=== PATIENT | male | born 1960 | race Caucasian/White ===

== ENCOUNTER 2020-12-16 22:25 | Inpatient (IN) | payer OTHER, SELFPAY ==
--- NOTE | 2020-12-16 22:31 | ECG_ITS ---
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
--- NOTE | 2020-12-16 22:31 | XRR_ITS ---
PROCEDURE INFORMATION: Exam: XR Chest Exam date and time: 12/16/2020 10:31 PM Age: 60 years old Clinical indication: Shortness of breath; Additional info: SOB, covid + TECHNIQUE: Imaging protocol: XR of the chest. Views: 1 view. COMPARISON: No relevant prior studies available. FINDINGS: Lungs: There is some patchy infiltrate at both lung bases more on the left than on the right. Pleural spaces: Unremarkable. No pleural effusion. No pneumothorax. Heart/Mediastinum: Heart is within normal limits of size. Bones/joints: Unremarkable. XR/XR chest 1V portable [id number] IMPRESSION: Mild basilar pulmonary infiltrates. Radiation Dose CTDIVOL = (mGy): DLP = (mGy-cm)
[2020-12-16 22:34] VITALS: BP 126/71; PULSE 88; RESP 28; TEMP 37.3; O2SAT 92; BMI 31.1
--- NOTE | 2020-12-16 22:39 | ED_ITS ---
HPI - SOB/Dyspnea General: Chief Complaint: COVID symptoms Stated Complaint: COVID +/ SOB Time Seen by Provider: 12/16/20 22:26 Source: patient and EMS Mode of arrival: EMS Limitations: no limitations History of Present Illness: HPI Narrative: 60-year-old male who states that he has been having cough fever over the last 6 days he tested positive for Covid [address] [facility]. He received a monoclonal antibody infusion this morning from [facility]. He states that throughout the days he has had increasing shortness of breath. Patient not been requiring oxygen when EMS arrived he is hypoxic states that the placed him on 15 L nonrebreather. He denies any vomiting he denies any chest pain. Associated symptoms: Reports fever(s); Deny abdominal pain, chest pain, nausea or vomiting Review of Systems Const: Reports: fever(s) and body aches Eyes: Denies: blurry vision or eye discomfort ENMT: Denies: throat pain or dental pain Card: Denies: chest pain Resp: Reports: dyspnea and productive cough GI: Denies: abdominal pain, nausea, vomiting or diarrhea : Denies: dysuria Musc: Denies: neck pain or back pain Skin/Breast: Denies: rash Neuro: Denies: headache(s) Psych: Denies: depression Miguel/Lymph: Denies: easy bruising All/Imm: Denies: urticaria Physical Exam Const: COMMON NORMALS: patient oriented x3 GENERAL APPEARANCE: in distress and ill appearing HENMT: COMMON NORMALS: normocephalic and atraumatic HEAD & SCALP: normocephalic and atraumatic Eye: COMMON NORMALS: Equal, round and reactive pupils present and EOMs intact bilaterally PUPIL: Yes Equal, round and reactive pupils present Neck/C-Spine: COMMON NORMALS: full ROM and supple Chest: COMMONS NORMALS: normal inspection of the chest and normal palpation of entire chest wall Resp: COMMON NORMALS: No retractions and No use of accessory muscles EFFORT & INSPECTION: Yes tachypneic AUSCULTATION: rales Cardio: COMMON NORMALS: regular rate, regular rhythm and No murmurs present (Cardio) RATE: regular rate RHYTHM: regular rhythm GI: COMMON NORMALS: Normal to inspection, nondistended, normoactive bowel sounds present, Soft to palpation, non-tender and no masses PALPATION: Yes Soft to palpation Extremity: COMMON NORMALS: normal to inspection and full ROM Neuro: COMMON NORMALS: patient oriented x3, moves all extremities and no focal motor deficits Psych: COMMON NORMALS: mental status grossly normal, Normal thought process present and cooperative THOUGHT PROCESS: Normal thought process present Skin: COMMON NORMALS: no rashes or lesions noted and no wounds GENERAL SKIN EXAM: no rashes or lesions noted Course Vital Signs: Vital signs: Vital Signs Temperature 99.1 F 12/16/20 22:34 Pulse Rate 75 12/17/20 01:16 Respiratory Rate 17 12/17/20 01:16 Blood Pressure 126/71 12/17/20 01:16 Pulse Oximetry 97 12/17/20 01:16 MDM - SOB/Dyspnea MDM Narrative: Medical decision making narrative: Patient presents here with Covid pneumonia requiring high flow oxygen. He is tolerating high flow oxygen well. CT shows no signs of acute embolism. I spoke to hospitalist will admit at this time. Lab Data: Labs: Lab Results 12/16/20 12/16/20 12/16/20 11:15 23:13 23:13 WBC 7.2 10^3/uL 10^3/ uL (4.0-10.0) RBC 4.61 10^6/uL 10^6 /uL (4.1-5.3) Hgb 13.9 g/dL g/dL (11.7-16.6) Hct 40.6 % L % (42.0-52.0) MCV 88.1 fl fl (80-94) MCH 30.2 pg pg (28.0-34.0) MCHC 34.2 g/dL g/dL (30.0-36.0) RDW 12.1 % % (12.1-15.1) Plt Count 201 10^3/cmm 10^3 /cmm (130-400) MPV 10.4 fL fL (7.4-10.4) Neut % (Auto) 78.0 % % Lymph % (Auto) 11.7 % % [place] % (Auto) 9.6 % % Eos % (Auto) 0.0 % % Baso % (Auto) 0.3 % % Neut # (Auto) 5.63 10^3/uL 10^3 /uL (1.8-7.7) Lymph # (Auto) 0.8 10^3/uL 10^3/ uL (0.8-4.8) [place] # (Auto) 0.7 10^3/uL 10^3/ uL (0.2-0.9) Eos # (Auto) 0.0 10^3/uL 10^3/ uL (0.0-0.8) Baso # (Auto) 0.0 10^3/uL 10^3/ uL (0.0-0.1) Nucleated RBC % (a uto) 0 % % Nucleated RBCs # 0.0 /100WBC /100W BC D-Dimer 0.64 ug/mIFEU H u g/mIFEU (0-0.59) Specimen Type Arterial Sample Site Radial, left ABG pH 7.49 H (7.35-7.45) ABG pCO2 32.1 mmHg L mmHg (35-45) ABG pO2 65.3 mmHg L mmHg (80.0-100.0) ABG HCO3 24.3 mmol/L mmol/ L (22-26) ABG Base Excess 1.6 mmol/L mmol/L (-2.0-2.0) Scott Test Pos Hematocrit 44.7 % % (42-52) O2 Delivery Device Hag O2 Liters/Min 50.0 % % FiO2 83.0 % % Scrum Master ID Rieri Sodium Potassium Chloride Carbon Dioxide Anion Gap BUN Creatinine GFR Calculation Glucose Calculated Osmolal ity Lactic Acid Calcium Total Bilirubin AST ALT Alkaline Phosphata se C-Reactive Protein NT-Pro-B Natriuret Pep Total Protein Albumin Globulin SARS-CoV-2 Ag (Rap id) 12/16/20 12/16/20 12/17/20 23:13 23:13 01:19 WBC RBC Hgb Hct MCV MCH MCHC RDW Plt Count MPV Neut % (Auto) Lymph % (Auto) [place] % (Auto) Eos % (Auto) Baso % (Auto) Neut # (Auto) Lymph # (Auto) [place] # (Auto) Eos # (Auto) Baso # (Auto) Nucleated RBC % (a uto) Nucleated RBCs # D-Dimer Specimen Type Sample Site ABG pH ABG pCO2 ABG pO2 ABG HCO3 ABG Base Excess Scott Test Hematocrit O2 Delivery Device O2 Liters/Min FiO2 Scrum Master ID Sodium 130 mmol/L L mmol /L (136-145) Potassium 4.4 mmol/L mmol/L (3.5-5.1) Chloride 93 mmol/L L mmol/ L (98-107) Carbon Dioxide 22 mmol/L mmol/L (22-29) Anion Gap 19.4 H (5-19) BUN 21 mg/dL mg/dL (8-23) Creatinine 0.9 mg/dL mg/dL (0.7-1.2) GFR Calculation 85.5 mL/min L mL/ min (90-130) Glucose 173 mg/dL H mg/dL (65-115) Calculated Osmolal ity 277 mOsm/kg L mOs m/kg (285-295) Lactic Acid 1.0 mmol/L mmol/L (0.5-2.2) Calcium 8.1 mg/dL L mg/dL (8.5-10.5) Total Bilirubin 0.8 mg/dL mg/dL (0.15-1.2) AST 46 U/L H U/L (0-40) ALT 49 U/L H U/L (0-41) Alkaline Phosphata se 46 IU/L IU/L (40-130) C-Reactive Protein 71.4 mg/L H mg/L (0.0-4.9) NT-Pro-B Natriuret Pep 19 pg/mL pg/mL (0-125) Total Protein 6.5 g/dL L g/dL (6.6-8.7) Albumin 3.6 g/dL g/dL (3.5-5.2) Globulin 2.9 g/dL g/dL (1.3-4.6) SARS-CoV-2 Ag (Rap id) Positive H (Negative) Imaging Data^: CXR: Attestation: I personally reviewed and interpreted this imaging study as follows: Radiologist's impression: [address] [place] [address] CT Scan Report Signed Patient: Jeff Chahal Unit #: [id number] : 1960 Age/Sex: 60 / M ADM Date: 12/16/20 Loc: ER Room/Bed: Attending Dr: Ordering Provider/Ordering MD: Jarad Hendrix MD Date of Service: 12/16/20 Procedure(s): CT angio chest PE protcl [id number] Accession Number(s): [id number] Report Number: [id number] PROCEDURE INFORMATION: Exam: CTA Chest With Contrast Exam date and time: 12/16/2020 11:50 PM Age: 60 years old Clinical indication: Cough and fever and shortness of breath; Additional info: SOB TECHNIQUE: Imaging protocol: Computed tomographic angiography of the chest with contrast. 3D rendering (Not supervised by radiologist): MIP and/or 3D reconstructed images were created by the technologist. Radiation optimization: All CT scans at this facility use at least one of these dose optimization techniques: automated exposure control; mA and/or kV adjustment per patient size (includes targeted exams where dose is matched to clinical indication); or iterative reconstruction. Contrast material: OMNI 350; Contrast volume: 65 ml; Contrast route: INTRAVENOUS (IV); COMPARISON: CR (CHEST, ) 12/16/2020 10:37 PM RADIATION DOSE METRICS: Total DLP (mGy-cm): 535.16 FINDINGS: Pulmonary arteries: Normal. No pulmonary emboli. Aorta: No thoracic aortic aneurysm is identified. Lungs: There are peripheral ground-glass opacities in both lungs with some basilar consolidation and intra lobular septal thickening. These findings are fairly typical for COVID-19 infection. Pleural spaces: Unremarkable. No pneumothorax. No pleural effusion. Heart: Unremarkable. No cardiomegaly. No pericardial effusion. Lymph nodes: There are small prevascular and paratracheal lymph nodes but no adenopathy. Diaphragm: There is a small hiatal hernia. Bones/joints: Unremarkable. No acute fracture. Soft tissues: Unremarkable. CT/CT angio chest PE protcl [id number] IMPRESSION: 1. Commonly reported imaging features of COVID-19 pneumonia are present. Other processes such as influenza pneumonia and organizing pneumonia, as can be seen with drug toxicity and connective tissue disease, can cause a similar imaging pattern. 2. No evidence of pulmonary embolism. Radiation Dose CTDIVOL = (mGy): DLP = 535.16 (mGy-cm) Dictated By: Migel Sanders Signed By: Migel Sanders Signed Date/Time: 12/17/20 0056 DD/ [id number] EKG Data^: EKG 1: Attestation: I personally reviewed and interpreted this EKG as follows: EKG Interpretation Date: 12/17/20 EKG interpretation time: 00:00 Interpretation: nsr hr [address] or t wave abnormalities qrs 88 qtc 382 Discharge Plan Discharge Patient Disposition: Admitted As Inpatient Clinical Impression: COVID-19 Condition: Stable Coding Level of Care Code ED Wire Temperer for Chg Fwd Exam Comprehensive
[2020-12-16 23:00] VITALS: PULSE 75; RESP 22; O2SAT 93
[2020-12-16] MEDS: dexamethasone 4 mg/mL INJ 6 MG IVP (23:14)
[2020-12-16 23:25] LABS: ABG PCO2 32.1 mmHg (35-45); ABG PH Result 7.49 (7.35-7.45); Arterial Blood Gas Hematocrit 44.7 % (42-52); Base Excess ABG 1.6 mmol/L (-2.0-2.0); Blood Gas Allen Test Pos; Blood Gas Sample Site Radial, left; Blood Gas Sample Type Arterial; HCO3 ABG 24.3 mmol/L (22-26); Oxygen Device HAG; PO2 ABG 65.3 mmHg (80.0-100.0)
[2020-12-16 23:30] LABS: Basophils % 0.3 %; Hematocrit 40.6 % (42.0-52.0); Hemoglobin 13.9 g/dL (11.7-16.6); Lymphocytes # 0.8 10^3/uL (0.8-4.8); Lymphocytes % 11.7 %; Mean Corpuscular HGB Conc 34.2 g/dL (30.0-36.0); Mean Corpuscular Hemoglobin 30.2 pg (28.0-34.0); Mean Corpuscular Volume 88.1 fl (80-94); Mean Platelet Volume 10.4 fL (7.4-10.4); Monocytes # 0.7 10^3/uL (0.2-0.9); Monocytes % 9.6 %; Neutrophils # 5.63 10^3/uL (1.8-7.7); Nucleated Red Blood Cells % 0 %; Platelet Count 201 10^3/cmm (130-400); Red Blood Count 4.61 10^6/uL (4.1-5.3); Red Cell Distribution Width 12.1 % (12.1-15.1); White Blood Count 7.2 10^3/uL (4.0-10.0)
[2020-12-16 23:48] LABS: D Dimer 0.64 ug/mIFEU (0-0.59)
--- NOTE | 2020-12-16 23:50 | CTR_ITS ---
PROCEDURE INFORMATION: Exam: CTA Chest With Contrast Exam date and time: 12/16/2020 11:50 PM Age: 60 years old Clinical indication: Cough and fever and shortness of breath; Additional info: SOB TECHNIQUE: Imaging protocol: Computed tomographic angiography of the chest with contrast. 3D rendering (Not supervised by radiologist): MIP and/or 3D reconstructed images were created by the technologist. Radiation optimization: All CT scans at this facility use at least one of these dose optimization techniques: automated exposure control; mA and/or kV adjustment per patient size (includes targeted exams where dose is matched to clinical indication); or iterative reconstruction. Contrast material: OMNI 350; Contrast volume: 65 ml; Contrast route: INTRAVENOUS (IV); COMPARISON: CR (CHEST, ) 12/16/2020 10:37 PM RADIATION DOSE METRICS: Total DLP (mGy-cm): 535.16 FINDINGS: Pulmonary arteries: Normal. No pulmonary emboli. Aorta: No thoracic aortic aneurysm is identified. Lungs: There are peripheral ground-glass opacities in both lungs with some basilar consolidation and intra lobular septal thickening. These findings are fairly typical for COVID-19 infection. Pleural spaces: Unremarkable. No pneumothorax. No pleural effusion. Heart: Unremarkable. No cardiomegaly. No pericardial effusion. Lymph nodes: There are small prevascular and paratracheal lymph nodes but no adenopathy. Diaphragm: There is a small hiatal hernia. Bones/joints: Unremarkable. No acute fracture. Soft tissues: Unremarkable. CT/CT angio chest PE protcl [id number] IMPRESSION: 1. Commonly reported imaging features of COVID-19 pneumonia are present. Other processes such as influenza pneumonia and organizing pneumonia, as can be seen with drug toxicity and connective tissue disease, can cause a similar imaging pattern. 2. No evidence of pulmonary embolism. Radiation Dose CTDIVOL = (mGy): DLP = 535.16 (mGy-cm)
[2020-12-17] VITALS (49 sets, daily range): BP systolic 96–126; BP diastolic 56–74; PULSE 50–202; RESP 11–34; TEMP 36.4–36.7; O2SAT 85–99
[2020-12-17 00:02] LABS: Alanine Aminotransferase 49 U/L (0-41); Albumin Level 3.6 g/dL (3.5-5.2); Alkaline Phosphatase 46 IU/L (40-130); Anion Gap 19.4 (5-19); Aspartate Amino Transferase 46 U/L (0-40); Blood Urea Nitrogen 21 mg/dL (8-23); C Reactive Protein 71.4 mg/L (0.0-4.9); Calcium 8.1 mg/dL (8.5-10.5); Carbon Dioxide 22 mmol/L (22-29); Chloride 93 mmol/L (98-107); Globulin 2.9 g/dL (1.3-4.6); Glomerular Filtration Rate 85.5 mL/min (90-130); Glucose 173 mg/dL (65-115); NT Pro B Type Natriuretic Pept 19 pg/mL (0-125); Osmolality Calculated 277 mOsm/kg (285-295); Potassium 4.4 mmol/L (3.5-5.1); Sodium 130 mmol/L (136-145); Total Bilirubin 0.8 mg/dL (0.15-1.2); Total Protein 6.5 g/dL (6.6-8.7)
[2020-12-17 00:05] LABS: Slide Review Slide Review Perform
[2020-12-17] MEDS: iohexol 350 mg/mL 100 mL Btl IV (00:41)
[2020-12-17 01:53] LABS: SARS Covid-2 Antigen Positive (Negative)
[2020-12-17] MEDS: cefTRIAXone 1,000 MG in sodium chloride 0.9% (plus) 50 ML 100 MG IV (02:56)
--- NOTE | 2020-12-17 03:45 | P.HP_ITS ---
Providers/Chief Complaint Admitting Physician: Kateryna Farrar MD Chief Complaint: COVID +/ SOB History of Present Illness Jeff Chahal is a 60 year old male diagnosed with COVID-19 6 days ago, received monoclonal antibody this morning at [facility], throughout the day he started to complain of progressively worsening shortness of breath and chest pain. This brought him into the emergency room. He was noted to have a new oxygen requirement and up to 15 L on nonrebreather mask. Upon presentation at the ER he was quickly transitioned to high flow nasal cannula. Review of systems positive for fever, weakness. CTA of the chest negative for PE but shows bilateral infiltrates consistent with COVID-19 pneumonia. He has positive sick contacts, his brother is currently additionally admitted to the ICU with severe Covid. Review of Systems General: Reports: 10 or more systems reviewed and unremarkable except in HPI and below Const: Reports: fever(s) and chills; Denies: body aches Eyes: Denies: change in vision, blurry vision or photophobia ENMT: Reports: hoarseness; Denies: throat pain, enlarged tonsils, odynophagia or nasal congestion Card: Denies: chest pain, palpitations, irregular heart rhythm, edema, swelling of feet/ankles, lightheadedness, pre-syncope, dyspnea on exertion or orthopnea Resp: Denies: dyspnea, productive cough, non-productive cough, wheezing, stridor, pain on inspiration, change in phlegm color, hemoptysis or chest congestion GI: Denies: abdominal pain, nausea, vomiting, hematemesis, coffee ground emesis, dysphagia, heartburn, diarrhea, constipation, GI cramping, change in stool character, hematochezia or melena : Denies: flank pain, dysuria, urinary frequency, urinary urgency, urinary hesitancy or hematuria Musc: Denies: neck pain, back pain, extremity pain, joint swelling, joint warmth or deformity Neuro: Denies: headache(s), numbness in extremities, weakness in extremities, sensory changes, difficulty walking, frequent falls, dizziness, vertigo, behavioral changes, Slurred speech present or seizure-like activity Psych: Denies: anxiety, depression, suicidal ideation or homicidal ideation Endo: Denies: polyuria, polydipsia, tired all the time, cold intolerance or hot flashes Miguel/Lymph: Denies: easy bruising or easy bleeding Medications/Allergies Allergies Allergy/AdvReac Type Severity Reaction Status Date / Time No Known Allergies Allergy Verified 12/16/20 22:34 Vitals/I&O/Wt Last Vital Signs Temp 99.1 F 12/16/20 22:34 Pulse 75 12/17/20 01:16 Resp 17 12/17/20 01:16 BP 126/71 12/17/20 01:16 Pulse Ox 97 12/17/20 01:16 Weight last 48 hrs Weight 98.43 kg Physical Exam Narrative: EXAM NARRATIVE: General: No acute distress, AO x3 HEENT: PERRLA, pupils bilaterally equal and reactive, pallors not present Chest: Bilateral rails to examine all areas CVS: S1-S2 regular, no murmurs, no tachycardia, no gallops, no rubs Abdomen: Soft, nontender, no organomegaly, bowel sounds present Neuro: No focal deficits, no facial deformity, AO x3, power 5/5 in all limbs Data : 12/16/20 23:13 12/16/20 23:13 Micro: Microbiology 12/16/20 23:13 Blood Culture - Preliminary Blood SPECIMEN COLLECTED 12/16/20 23:00 Blood Culture - Preliminary Blood SPECIMEN COLLECTED Attestation for Other Data: I personally reviewed and interpreted the following: Other data: Laboratory Results WBC 7.2 10^3/uL (4.0-10.0) 12/16/20 23:13 RBC 4.61 10^6/uL (4.1-5.3) 12/16/20 23:13 Hgb 13.9 g/dL (11.7-16.6) 12/16/20 23:13 Hct 40.6 % (42.0-52.0) L 12/16/20 23:13 MCV 88.1 fl (80-94) 12/16/20 23:13 MCH 30.2 pg (28.0-34.0) 12/16/20 23:13 MCHC 34.2 g/dL (30.0-36.0) 12/16/20 23:13 RDW 12.1 % (12.1-15.1) 12/16/20 23:13 Plt Count 201 10^3/cmm (130-400) 12/16/20 23:13 MPV 10.4 fL (7.4-10.4) 12/16/20 23:13 Neut % (Auto) 78.0 % 12/16/20 23:13 Lymph % (Auto) 11.7 % 12/16/20 23:13 [place] % (Auto) 9.6 % 12/16/20 23:13 Eos % (Auto) 0.0 % 12/16/20 23:13 Baso % (Auto) 0.3 % 12/16/20 23:13 Neut # (Auto) 5.63 10^3/uL (1.8-7.7) 12/16/20 23:13 Lymph # (Auto) 0.8 10^3/uL (0.8-4.8) 12/16/20 23:13 [place] # (Auto) 0.7 10^3/uL (0.2-0.9) 12/16/20 23:13 Eos # (Auto) 0.0 10^3/uL (0.0-0.8) 12/16/20 23:13 Baso # (Auto) 0.0 10^3/uL (0.0-0.1) 12/16/20 23:13 Nucleated RBC % (auto) 0 % 12/16/20 23:13 Nucleated RBCs # 0.0 /100WBC 12/16/20 23:13 D-Dimer 0.64 ug/mIFEU (0-0.59) H 12/16/20 23:13 Specimen Type Arterial 12/16/20 11:15 Sample Site Radial, left 12/16/20 11:15 ABG pH 7.49 (7.35-7.45) H 12/16/20 11:15 ABG pCO2 32.1 mmHg (35-45) L 12/16/20 11:15 ABG pO2 65.3 mmHg (80.0-100.0) L 12/16/20 11:15 ABG HCO3 24.3 mmol/L (22-26) 12/16/20 11:15 ABG Base Excess 1.6 mmol/L (-2.0-2.0) 12/16/20 11:15 Scott Test Pos 12/16/20 11:15 Hematocrit 44.7 % (42-52) 12/16/20 11:15 O2 Delivery Device Hag 12/16/20 11:15 O2 Liters/Min 50.0 % 12/16/20 11:15 FiO2 83.0 % 12/16/20 11:15 Electrician Crane Maintenance ID Marquis 12/16/20 11:15 Sodium 130 mmol/L (136-145) L 12/16/20 23:13 Potassium 4.4 mmol/L (3.5-5.1) 12/16/20 23:13 Chloride 93 mmol/L (98-107) L 12/16/20 23:13 Carbon Dioxide 22 mmol/L (22-29) 12/16/20 23:13 Anion Gap 19.4 (5-19) H 12/16/20 23:13 BUN 21 mg/dL (8-23) 12/16/20 23:13 Creatinine 0.9 mg/dL (0.7-1.2) 12/16/20 23:13 GFR Calculation 85.5 mL/min (90-130) L 12/16/20 23:13 Glucose 173 mg/dL (65-115) H 12/16/20 23:13 Calculated Osmolality 277 mOsm/kg (285-295) L 12/16/20 23:13 Lactic Acid 1.0 mmol/L (0.5-2.2) 12/16/20 23:13 Calcium 8.1 mg/dL (8.5-10.5) L 12/16/20 23:13 Total Bilirubin 0.8 mg/dL (0.15-1.2) 12/16/20 23:13 AST 46 U/L (0-40) H 12/16/20 23:13 ALT 49 U/L (0-41) H 12/16/20 23:13 Alkaline Phosphatase 46 IU/L (40-130) 12/16/20 23:13 C-Reactive Protein 71.4 mg/L (0.0-4.9) H 12/16/20 23:13 NT-Pro-B Natriuret Pep 19 pg/mL (0-125) 12/16/20 23:13 Total Protein 6.5 g/dL (6.6-8.7) L 12/16/20 23:13 Albumin 3.6 g/dL (3.5-5.2) 12/16/20 23:13 Globulin 2.9 g/dL (1.3-4.6) 12/16/20 23:13 SARS-CoV-2 Ag (Rapid) Positive (Negative) H 12/17/20 01:19 Impressions Chest X-Ray 12/16/20 22:31 IMPRESSION: Mild basilar pulmonary infiltrates. Radiation Dose CTDIVOL = (mGy): DLP = (mGy-cm) Chest CTA 12/16/20 23:50 IMPRESSION: 1. Commonly reported imaging features of COVID-19 pneumonia are present. Other processes such as influenza pneumonia and organizing pneumonia, as can be seen with drug toxicity and connective tissue disease, can cause a similar imaging pattern. 2. No evidence of pulmonary embolism. Radiation Dose CTDIVOL = (mGy): DLP = 535.16 (mGy-cm) 12/16/20 11:15 ABG pH 7.49 H ABG pCO2 32.1 L ABG pO2 65.3 L ABG HCO3 24.3 ABG Base Excess 1.6 A&P Assessment and plan (1) Pneumonia due to COVID-19 virus: Admit to ICU in view of high oxygen requirements which are quickly escalating during the day. Received monoclonal antibody this morning at [facility] reportedly Remdisivir 200mg iv x 1 followed by 100mg iv daily dexamethasone 6mg IVP daily duoneb q6h, budesonide q12h empiric CTX Flutter valve/spirometer at bedside trend inflammatory markers including CRP,D dimer CTA chest negative for PE Status: Acute (2) Respiratory failure with hypoxia: Status: Acute Attestations Medical Necessity Statement*: Greater than 2 midnight admission will be needed for above defined care Coding Level of Care Code Acute Loss Prevention Agent for [facility] Diagnoses Pneumonia due to COVID-19 virus U07.1; J12.82 Respiratory failure with hypoxia J96.91
[2020-12-17] MEDS: remdesivir 200 MG in sodium chloride 0.9% (100 ml) 60 ML 100 MG IV (04:31)
[2020-12-17] MEDS: enoxaparin 40 mg/0.4 mL Syringe SUBCUT (05:34)
--- NOTE | 2020-12-17 06:12 | PC.NURSE ---
Okay to give decadron this AM 0600, when patient arrives to ICU per Dr Farrar.
[2020-12-17] MEDS: dexamethasone 4 mg/mL INJ 6 MG IVP (06:44)
--- NOTE | 2020-12-17 08:05 | PC.NURSE ---
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 Other education includes: Oxygen therapy and isolation. Patient understood. Patient was on heated high flow with fio2 at 80% upon admission. Shortness of breath was noted and patient was diaphoretic.
[2020-12-17 08:40] LABS: Estmated Average Glucose 171; Hemoglobin A1C 7.6 % (4.0-6.0)
[2020-12-17] MEDS: budesonide 0.5 mg/2 mL Neb INHALATION ×2 (09:41→20:59)
[2020-12-17] MEDS: ipratropium-albuterol 3 mL Neb INHALATION ×3 (09:41→20:59)
[2020-12-17] MEDS: pantoprazole DR 40 mg Tablet PO (09:48)
--- NOTE | 2020-12-17 09:54 | PC.CHAP ---
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 licensing coordinator visit [] Patient/Family/Request visit [] Outpatient visit [] Follow-up visit [] Physician referral [] Code/Alert [x] Routine visit [] Staff referral [] Actively dying [] Patient sleeping [] Family support [] [] Out of room [] Palliative care [] [] Receiving care in room [] Pre-surgical visit [] Trauma [] Long length of stay [x] ICU visit [x] Other:covid.. resting sitting up in bed Relational/Emotional Strength [] Patient feels connected with others/family/visitors/staff [] Distress [] Loneliness/isolation [] Abandonment Spirituality of Patient [] Person of Elvia [] Attends Presybeterian of their Elvia [] Believes in Prayer [] Reads Bible or Episcopal materials [] There are Spiritual issues to be addressed Trend Investigator Interventions [x] Prayer [] Active listening [] Non-anxious presence [] Spiritual/emotional support [] Crisis/trauma care [] Spiritual counseling [] Bereavement support [] Provided bereavement packet [] Provided Bible/devotional materials [] Provided toy/stuffed animal, coloring book to patient or family member [] Provided Communion [] Anointing/[place]utter [] Salvation [x] Completed spiritual assessment [] Other: Impact on Illness or Injury [] Angry [] Fearful [] Anxious [] Often cries [] Exhaustion [] Unable to work [] Unable to attend catholic [] Unable to walk/stand [] Unable to read [] Unable to drive [] Unable to eat/drink [] Unable to sleep [] Unable to be with family [] Patient intubated [] Other: Summary Time spent with patient
--- NOTE | 2020-12-17 17:32 | P.PN_ITS ---
Subjective Subjective: Interval history: Patient was seen this morning, he tells me that he is feeling significant better, remains on high flow, no chest pain, no shortness of breath, denies a history of smoking, no history of lung disease, no occupational exposure to dust Vitals/I&O/Wt Last Vital Signs Temp 99.1 F 12/16/20 22:34 Pulse 58 L 12/17/20 16:30 Resp 30 H 12/17/20 16:30 BP 123/71 12/17/20 16:30 Pulse Ox 91 12/17/20 16:30 12/17/20 12/17/20 12/17/20 06:59 14:59 22:59 Intake Total 110 / 110 Output Total 500 / 500 Balance -390 / -390 Weight last 48 hrs Weight 98.43 kg Physical Exam Const: COMMON NORMALS: no acute distress and patient oriented x3 Resp: COMMON NORMALS: normal respiratory effort, No retractions, No use of accessory muscles and clear to auscultation bilaterally AUSCULTATION: clear to auscultation bilaterally Cardio: COMMON NORMALS: regular rate, regular rhythm, S1 normal heart sound present and S2 normal heart sound present RATE: regular rate RHYTHM: regular rhythm HEART SOUNDS: S1 normal heart sound present and S2 normal heart sound present GI: COMMON NORMALS: Normal to inspection, nondistended, normoactive bowel sounds present, Soft to palpation, non-tender and No hepatosplenomegaly present PALPATION: Yes Soft to palpation and Yes No hepatosplenomegaly present Extremity: COMMON NORMALS: no pedal edema Neuro: COMMON NORMALS: patient oriented x3 Psych: COMMON NORMALS: mental status grossly normal Data : 12/16/20 23:13 12/16/20 23:13 Micro: Microbiology 12/16/20 23:13 Blood Culture - Preliminary Blood SPECIMEN COLLECTED 12/16/20 23:00 Blood Culture - Preliminary Blood SPECIMEN COLLECTED A&P Assessment and plan (1) Pneumonia due to COVID-19 virus: Admit to ICU in view of high oxygen requirements which are quickly escalating during the day. Received monoclonal antibody this morning at [facility] reportedly Remdisivir 200mg iv x 1 followed by 100mg iv daily We will consider baricitinib dexamethasone 6mg IVP daily duoneb q6h, budesonide q12h empiric CTX Flutter valve/spirometer at bedside trend inflammatory markers including CRP,D dimer CTA chest negative for PE Type 2 diabetes mellitus, low-dose sliding scale Status: Acute (2) Respiratory failure with hypoxia: Status: Acute Attestations Medical Necessity Statement*: Patient requires hospitalization due to acute respiratory failure secondary COVID-19 Coding Level of Care Code Acute 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 Fwd Diagnoses Pneumonia due to COVID-19 virus U07.1; J12.82 Respiratory failure with hypoxia J96.91
[2020-12-17] MEDS: insulin lispro 100 unit/1 mL SUBCUT (17:49)
[2020-12-17 17:50] LABS: Glucose Point of Care 332 mg/dL (70-110)
--- NOTE | 2020-12-17 18:52 | PC.NURSE ---
Pt was able to transfer self to chair in room. Tolerated well. Fio2 remains the same at 80%. O2 levels do drop to low 80's with exertion. Contacts updated on patients condition.
[2020-12-18] VITALS (55 sets, daily range): BP systolic 95–135; BP diastolic 46–72; PULSE 49–666; RESP 14–30; TEMP 35.9–36.8; O2SAT 86–96
[2020-12-18 00:18] LABS: Glucose Point of Care 363 mg/dL (70-110)
[2020-12-18] MEDS: dexamethasone 4 mg/mL INJ 6 MG IVP (02:32)
[2020-12-18] MEDS: cefTRIAXone 1,000 MG in sodium chloride 0.9% (plus) 50 ML 100 MG IV (02:33)
[2020-12-18] MEDS: enoxaparin 40 mg/0.4 mL Syringe SUBCUT (02:33)
[2020-12-18] MEDS: ipratropium-albuterol 3 mL Neb INHALATION ×4 (02:50→20:00)
[2020-12-18] MEDS: remdesivir 100 MG in sodium chloride 0.9% (100 ml) 100 ML IV (05:05)
--- NOTE | 2020-12-18 05:37 | XR_ITS ---
WS: [id number] Portable AP semiupright chest, 12/18/2020 Clinical Data: Follow-up pneumonia Comparison: Portable chest, 12/16/2020. Findings: The patchy bilateral pulmonary opacities have increased throughout the lungs. The greatest opacity is in the lower lobes. The heart is slightly enlarged. Monitor leads are on the chest wall. XR/XR chest 1V portable [id number] Impression: Increase of patchy bilateral pulmonary opacities.
[2020-12-18 05:49] LABS: Basophils % 0.1 %; Hematocrit 38.3 % (42.0-52.0); Lymphocytes # 0.9 10^3/uL (0.8-4.8); Lymphocytes % 8.2 %; Mean Corpuscular HGB Conc 33.9 g/dL (30.0-36.0); Mean Corpuscular Hemoglobin 30.1 pg (28.0-34.0); Mean Corpuscular Volume 88.7 fl (80-94); Mean Platelet Volume 10.7 fL (7.4-10.4); Monocytes # 0.7 10^3/uL (0.2-0.9); Monocytes % 6.5 %; Neutrophils # 9.06 10^3/uL (1.8-7.7); Neutrophils % 84.5 %; Nucleated Red Blood Cells % 0 %; Platelet Count 247 10^3/cmm (130-400); Red Blood Count 4.32 10^6/uL (4.1-5.3); Red Cell Distribution Width 11.9 % (12.1-15.1); White Blood Count 10.7 10^3/uL (4.0-10.0)
--- NOTE | 2020-12-18 05:51 | PC.NURSE ---
Nurse Note: Shift Summary: Pt alert and oriented x4; moves all extremities and follows commands. All vs and assessments as charted. Pt's HR in upper 40's to lower 50's majority of shift. Dr. Farrar notified; no new orders. Pt c/o being sweaty and cold earlier in shift. BG taken and it was 363. Notified Dr. Farrar, NNO. Pt currently resting with eyes closed. No distress noted at this time.
[2020-12-18 06:17] LABS: Alanine Aminotransferase 42 U/L (0-41); Albumin Level 3.2 g/dL (3.5-5.2); Alkaline Phosphatase 49 IU/L (40-130); Aspartate Amino Transferase 27 U/L (0-40); Blood Urea Nitrogen 23 mg/dL (8-23); Calcium 8.2 mg/dL (8.5-10.5); Carbon Dioxide 24 mmol/L (22-29); Chloride 96 mmol/L (98-107); Creatinine Clr Calc Pharmacy 150.1717; Globulin 3.3 g/dL (1.3-4.6); Glomerular Filtration Rate 136.5 mL/min (90-130); Glucose 337 mg/dL (65-115); Magnesium 2.7 mg/dL (1.7-2.3); Osmolality Calculated 291 mOsm/kg (285-295); Phosphorus 2.6 mg/dL (2.5-4.5); Sodium 132 mmol/L (136-145); Total Bilirubin 0.4 mg/dL (0.15-1.2); Total Protein 6.5 g/dL (6.6-8.7)
[2020-12-18 06:18] LABS: Anion Gap 16.4 (5-19); Potassium 4.4 mmol/L (3.5-5.1)
[2020-12-18 07:37] LABS: Glucose Point of Care 346 mg/dL (70-110)
[2020-12-18 07:56] LABS: NT Pro B Type Natriuretic Pept 86 pg/mL (0-125); Procalcitonin 0.15 ng/mL (0-0.5)
--- NOTE | 2020-12-18 08:05 | USCV_ITS ---
Jeff Chahal Age: 60 Gender: M : 1960 Exam Date: 12/18/2020 10:04 Ordering Phys: Rodney Pinzon MD Technologist: Exam Location: [facility] [place]: SOB BP: 117 / 67 HR: 68 Rhythm: Sinus Technical Quality: Adequate MEASUREMENTS (Male / Female) Normal Values 2D ECHO LV Diastolic Diameter PLAX 4.4 cm 4.2 - 5.9 / 3.9 - 5.3 cm LV Systolic Diameter PLAX 3.1 cm IVS Diastolic Thickness 1.3 cm 0.6 - 1.0 / 0.6 - 0.9 cm IVS Systolic Thickness 1.3 cm LVPW Diastolic Thickness 1.3 cm 0.6 - 1.0 / 0.6 - 0.9 cm LVPW Systolic Thickness 1.0 cm LVOT Diameter 2.0 cm LV Ejection Fraction 2D Teich 56.6 % LV Ejection Fraction MOD 2C 68.7 % LV Ejection Fraction 2C AL 70.6 % LA Diameter 3.4 cm LA Width 3.6 cm LA Height 5.9 cm RA Width 4.3 cm RA Height 5.5 cm M-MODE MV E Point Septal Separation 2.1 cm DOPPLER AV Peak Velocity 163.0 cm/s LVOT Peak Velocity 93.0 cm/s AV Area Cont Eq vti 2.1 cm squared AV Area Cont Eq pk 1.8 cm squared MV Area PHT 5.0 cm squared Mitral E to A Ratio 1.3 MV E' Velocity 50.0 cm/s Mitral E to MV E' Ratio 6.1 Mitral E to LV E' Lateral Ratio 5.4 Mitral E to LV E' Septal Ratio 7.0 TR Peak Velocity 170.3 cm/s TR Peak Gradient 11.6 mmHg TV Peak E Velocity 69.0 cm/s Right Atrial Pressure 3.0 mmHg Pulmonary Artery Systolic Pressu 14.6 mmHg FINDINGS Left Ventricle Normal left ventricular size. LV systolic function is normal with EF of 55-60%. No regional wall motion abnormalities. Normal diastolic filling pattern. Right Ventricle The right ventricle is normal in size and function. Right Atrium The right atrium is normal in size. Left Atrium The left atrium is normal in size. Mitral Valve Structurally normal mitral valve without significant stenosis or prolapse. There is no mitral regurgitation. Aortic Valve Structurally normal aortic valve without significant sclerosis or stenosis. There is no aortic regurgitation. Tricuspid Valve Structurally normal tricuspid valve without significant stenosis or regurgitation. Insufficient TR jet to calculate RVSP Pulmonic Valve Structurally normal pulmonic valve without significant stenosis. There is no pulmonic regurgitation. Pericardium Normal pericardium without effusion. Aorta Normal ascending aorta dimension. CONCLUSIONS LV systolic function is normal with EF of 55-60% Diastolic function is normal No significant valvular heart disease noted No comparison studies are available Devaughn Owens MD (Electronically Signed) Final Date: 18 December 2020 11:49 S
[2020-12-18 08:07] LABS: C Reactive Protein 49.6 mg/L (0.0-4.9); Creatine Phosphokinase 119 U/L (39-308)
[2020-12-18] MEDS: pantoprazole DR 40 mg Tablet PO (08:09)
[2020-12-18] MEDS: insulin lispro 100 unit/1 mL SUBCUT ×3 (08:09→17:51)
[2020-12-18] MEDS: budesonide 0.5 mg/2 mL Neb INHALATION ×2 (09:21→20:00)
[2020-12-18] MEDS: insulin glargine 100 units/1 mL 5 UNIT SUBCUT ×2 (09:58→20:05)
--- NOTE | 2020-12-18 10:49 | PC.CHAP ---
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 rn corrections visit [] Patient/Family/Request visit [] Outpatient visit [] Follow-up visit [] Physician referral [] Code/Alert [x] Routine visit [] Staff referral [] Actively dying [x] Patient sleeping [] Family support [] [] Out of room [] Palliative care [] [] Receiving care in room [] Pre-surgical visit [] Trauma [] Long length of stay [x] ICU visit [] Other: Relational/Emotional Strength [] Patient feels connected with others/family/visitors/staff [] Distress [] Loneliness/isolation [] Abandonment Spirituality of Patient [] Person of Elvia [] Attends Protestant of their Elvia [] Believes in Prayer [] Reads Bible or Pentecostal materials [] There are Spiritual issues to be addressed Calculus Tutor Interventions [x] Prayer [] Active listening [] Non-anxious presence [] Spiritual/emotional support [] Crisis/trauma care [] Spiritual counseling [] Bereavement support [] Provided bereavement packet [] Provided Bible/devotional materials [] Provided toy/stuffed animal, coloring book to patient or family member [] Provided Communion [] Anointing/[place] [] Salvation [x] Completed spiritual assessment [] Other: Impact on Illness or Injury [] Angry [] Fearful [] Anxious [] Often cries [] Exhaustion [] Unable to work [] Unable to attend latter-day [] Unable to walk/stand [] Unable to read [] Unable to drive [] Unable to eat/drink [] Unable to sleep [] Unable to be with family [] Patient intubated [] Other: Summary Time spent with patient
[2020-12-18 12:10] LABS: Glucose Point of Care 455 mg/dL (70-110)
--- NOTE | 2020-12-18 15:14 | PM.PN ---
Subjective Subjective: Interval history: Patient was seen this morning, he sitting up in a chair, currently on 80% FiO2, tells me that he feels weak, no nausea, vomiting, chest pain, Vitals/I&O/Wt Last Vital Signs Temp 96.7 F L 12/18/20 08:00 Pulse 72 12/18/20 14:40 Resp 22 H 12/18/20 14:40 BP 120/58 12/18/20 14:30 Pulse Ox 91 12/18/20 14:40 12/18/20 12/18/20 12/18/20 06:59 14:59 22:59 Intake Total 150 / 1570 1320 / 1320 Output Total 550 / 2000 1200 / 1200 Balance -400 / -430 120 / 120 Weight last 48 hrs Weight 98.43 kg Physical Exam Const: COMMON NORMALS: no acute distress and patient oriented x3 Resp: COMMON NORMALS: normal respiratory effort, No retractions, No use of accessory muscles and clear to auscultation bilaterally AUSCULTATION: clear to auscultation bilaterally Cardio: COMMON NORMALS: regular rate, regular rhythm, S1 normal heart sound present and S2 normal heart sound present RATE: regular rate RHYTHM: regular rhythm HEART SOUNDS: S1 normal heart sound present and S2 normal heart sound present GI: COMMON NORMALS: Normal to inspection, nondistended, normoactive bowel sounds present, Soft to palpation and non-tender PALPATION: Yes Soft to palpation Extremity: COMMON NORMALS: no pedal edema Neuro: COMMON NORMALS: patient oriented x3 Psych: COMMON NORMALS: mental status grossly normal Data : 12/18/20 05:35 12/18/20 05:35 Micro: Microbiology 12/17/20 18:30 Bacterial Antigens - Final Urine,Clean Catch 12/16/20 23:13 Blood Culture - Preliminary Blood NEGATIVE TO DATE 12/16/20 23:00 Blood Culture - Preliminary Blood NEGATIVE TO DATE A&P Assessment and plan (1) Pneumonia due to COVID-19 virus: Acute hypoxic respiratory failure, with acute respiratory distress syndrome Currently admitted in ICU Received monoclonal antibody this morning at [facility] reportedly Remdesivir 100 mg IV daily day 2 Baricitinib day 1 dexamethasone 6mg IVP daily duoneb q6h, budesonide q12h empiric CTX Flutter valve/spirometer at bedside trend inflammatory markers including CRP,D dimer CTA chest negative for PE Full code Lovenox for DVT prophylaxis Type 2 diabetes mellitus, low-dose sliding scale Status: Acute (2) Respiratory failure with hypoxia: Status: Acute (3) Acute respiratory distress syndrome: Status: Acute (4) Transaminitis: Status: Acute Attestations Medical Necessity Statement*: Patient requires hospitalization for acute hypoxic respiratory failure secondary COVID-19 pneumonia Coding Level of Care Code Acute 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
[2020-12-18 17:37] LABS: Glucose Point of Care 419 mg/dL (70-110)
--- NOTE | 2020-12-18 18:47 | PC.NURSE ---
Shift Note Frequent safety and comfort rounds continue. Orders and/or nursing care completed as indicated. Patient monitored for response to intervention and treatment(s). Education provided includes deep breathing. Patient was up to chair most of shift. Fio2 is at 85%.
[2020-12-18 19:30] LABS: Glucose Point of Care 378 mg/dL (70-110)
[2020-12-19] VITALS (40 sets, daily range): BP systolic 92–133; BP diastolic 53–79; PULSE 50–82; RESP 14–32; TEMP 36.5; O2SAT 87–98
[2020-12-19] MEDS: ipratropium-albuterol 3 mL Neb INHALATION ×4 (03:28→20:58)
[2020-12-19 03:30] LABS: Basophils % 0.1 %; Hematocrit 42.6 % (42.0-52.0); Lymphocytes % 10.5 %; Mean Corpuscular HGB Conc 32.9 g/dL (30.0-36.0); Mean Corpuscular Hemoglobin 30.2 pg (28.0-34.0); Mean Platelet Volume 10.4 fL (7.4-10.4); Monocytes # 0.7 10^3/uL (0.2-0.9); Monocytes % 6.6 %; Neutrophils # 8.11 10^3/uL (1.8-7.7); Neutrophils % 82.3 %; Nucleated Red Blood Cells % 0 %; Platelet Count 266 10^3/cmm (130-400); Red Blood Count 4.63 10^6/uL (4.1-5.3); Red Cell Distribution Width 11.9 % (12.1-15.1); White Blood Count 9.9 10^3/uL (4.0-10.0)
[2020-12-19] MEDS: cefTRIAXone 1,000 MG in sodium chloride 0.9% (plus) 50 ML 100 MG IV (03:37)
[2020-12-19] MEDS: dexamethasone 4 mg/mL INJ 6 MG IVP (03:38)
[2020-12-19] MEDS: enoxaparin 40 mg/0.4 mL Syringe SUBCUT (03:38)
[2020-12-19 03:57] LABS: Slide Review Slide Review Perform
[2020-12-19 04:00] LABS: Alanine Aminotransferase 37 U/L (0-41); Albumin Level 3.1 g/dL (3.5-5.2); Alkaline Phosphatase 49 IU/L (40-130); Anion Gap 16.4 (5-19); Aspartate Amino Transferase 24 U/L (0-40); Blood Urea Nitrogen 23 mg/dL (8-23); Calcium 8.6 mg/dL (8.5-10.5); Carbon Dioxide 23 mmol/L (22-29); Chloride 98 mmol/L (98-107); Globulin 3.5 g/dL (1.3-4.6); Glomerular Filtration Rate 114.3 mL/min (90-130); Glucose 294 mg/dL (65-115); Magnesium 2.4 mg/dL (1.7-2.3); Osmolality Calculated 291 mOsm/kg (285-295); Phosphorus 2.7 mg/dL (2.5-4.5); Potassium 4.4 mmol/L (3.5-5.1); Sodium 133 mmol/L (136-145); Total Bilirubin 0.4 mg/dL (0.15-1.2); Total Protein 6.6 g/dL (6.6-8.7)
[2020-12-19 04:13] LABS: NT Pro B Type Natriuretic Pept 153 pg/mL (0-125); Procalcitonin 0.11 ng/mL (0-0.5)
[2020-12-19 04:23] LABS: Creatine Phosphokinase 85 U/L (39-308)
[2020-12-19] MEDS: remdesivir 100 MG in sodium chloride 0.9% (100 ml) 100 ML IV (05:50)
[2020-12-19 07:32] LABS: Glucose Point of Care 302 mg/dL (70-110)
[2020-12-19] MEDS: insulin lispro 100 unit/1 mL SUBCUT ×3 (07:45→17:22)
[2020-12-19] MEDS: benzonatate 100 mg Capsule PO (08:02)
[2020-12-19] MEDS: budesonide 0.5 mg/2 mL Neb INHALATION ×2 (09:01→20:58)
[2020-12-19] MEDS: pantoprazole DR 40 mg Tablet PO (10:08)
[2020-12-19] MEDS: insulin glargine 100 units/1 mL 10 UNIT SUBCUT ×2 (10:08→20:29)
[2020-12-19 11:15] LABS: Glucose Point of Care 300 mg/dL (70-110)
--- NOTE | 2020-12-19 12:46 | PM.PN ---
Subjective Subjective: Interval history: Patient was seen this morning, he tells me is feeling better, overnight he required to be increased to 50 L, 90%, he is agreeable to intubation if required, his brother unfortunately is also hospitalized for COVID-19, and he lives with his brother, I advised patient to consider a decision-maker if he does get intubated, he would consider his parents Vitals/I&O/Wt Last Vital Signs Temp 97.9 F 12/18/20 19:48 Pulse 69 12/19/20 11:30 Resp 22 H 12/19/20 11:30 BP 125/64 12/19/20 11:30 Pulse Ox 90 12/19/20 11:30 12/18/20 12/19/20 12/19/20 22:59 06:59 14:59 Intake Total 600 / 1920 270 / 2190 240 / 240 Output Total 1400 / 2600 950 / 3550 825 / 825 Balance -800 / -680 -680 / -1360 -585 / -585 Physical Exam Const: COMMON NORMALS: no acute distress and patient oriented x3 Resp: COMMON NORMALS: normal respiratory effort, No retractions, No use of accessory muscles and clear to auscultation bilaterally AUSCULTATION: clear to auscultation bilaterally Cardio: COMMON NORMALS: regular rate, regular rhythm, S1 normal heart sound present and S2 normal heart sound present RATE: regular rate RHYTHM: regular rhythm HEART SOUNDS: S1 normal heart sound present and S2 normal heart sound present GI: COMMON NORMALS: Normal to inspection, nondistended, normoactive bowel sounds present, Soft to palpation and non-tender PALPATION: Yes Soft to palpation Extremity: COMMON NORMALS: no pedal edema Neuro: COMMON NORMALS: patient oriented x3 Psych: COMMON NORMALS: mental status grossly normal Data : 12/19/20 03:04 12/19/20 03:04 Micro: Microbiology 12/17/20 18:30 Bacterial Antigens - Final Urine,Clean Catch A&P Assessment and plan (1) Pneumonia due to COVID-19 virus: Acute hypoxic respiratory failure, with acute respiratory distress syndrome Currently admitted in ICU Currently on 50 L, 90%, BiPAP as needed Increased risk of intubation in the next 24-48 hrs. Received monoclonal antibody this morning at [facility] reportedly Remdesivir 100 mg IV daily day 3 Baricitinib day 3 dexamethasone 6mg IVP daily duoneb q6h, budesonide q12h empiric CTX Flutter valve/spirometer at bedside trend inflammatory markers including CRP,D dimer CTA chest negative for PE Full code Lovenox for DVT prophylaxis Type 2 diabetes mellitus, low-dose sliding scale Status: Acute (2) Respiratory failure with hypoxia: Status: Acute (3) Acute respiratory distress syndrome: Status: Acute (4) Transaminitis: Status: Acute Attestations Medical Necessity Statement*: Patient requires hospitalization for pneumonia secondary COVID-19 Coding Level of Care Code 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
[2020-12-19 17:12] LABS: Glucose Point of Care 378 mg/dL (70-110)
[2020-12-19 20:35] LABS: Glucose Point of Care 277 mg/dL (70-110)
[2020-12-20] VITALS (51 sets, daily range): BP systolic 108–147; BP diastolic 59–85; PULSE 55–113; RESP 16–42; TEMP 36.3–38.8; O2SAT 80–96
[2020-12-20] MEDS: dexamethasone 4 mg/mL INJ 6 MG IVP (02:07)
[2020-12-20] MEDS: cefTRIAXone 1,000 MG in sodium chloride 0.9% (plus) 50 ML 100 MG IV (02:07)
[2020-12-20] MEDS: enoxaparin 40 mg/0.4 mL Syringe SUBCUT (02:07)
[2020-12-20] MEDS: morphine 4 mg/mL SDV 1 mL 2 MG IVP ×2 (03:19→17:09)
[2020-12-20] MEDS: ipratropium-albuterol 3 mL Neb INHALATION ×4 (03:20→20:52)
[2020-12-20] MEDS: remdesivir 100 MG in sodium chloride 0.9% (100 ml) 100 ML IV (05:50)
--- NOTE | 2020-12-20 07:00 | XRR_ITS ---
PROCEDURE INFORMATION: Exam: XR Chest Exam date and time: 12/20/2020 7:00 AM Age: 60 years old Clinical indication: Cough and shortness of breath; Patient HX: F/u covid pneumonia; Additional info: SOB TECHNIQUE: Imaging protocol: XR of the chest. Views: 1 view. COMPARISON: CR XR chest 1V portable [id number] 12/18/2020 5:10 AM FINDINGS: Lungs: Bilateral pulmonary infiltrates are present especially in lung bases. No change. Pleural spaces: Unremarkable. No pleural effusion. No pneumothorax. Heart/Mediastinum: Unremarkable. No cardiomegaly. Bones/joints: Unremarkable. XR/XR chest 1V portable [id number] IMPRESSION: The bilateral pulmonary infiltrates especially in the lung bases. No significant change. Radiation Dose CTDIVOL = (mGy): DLP = (mGy-cm)
[2020-12-20 07:37] LABS: Basophils % 0.1 %; Hematocrit 44.4 % (42.0-52.0); Hemoglobin 15.1 g/dL (11.7-16.6); Lymphocytes # 0.5 10^3/uL (0.8-4.8); Lymphocytes % 5.5 %; Mean Corpuscular Hemoglobin 30.4 pg (28.0-34.0); Mean Corpuscular Volume 89.3 fl (80-94); Mean Platelet Volume 9.5 fL (7.4-10.4); Monocytes # 0.5 10^3/uL (0.2-0.9); Monocytes % 5.5 %; Neutrophils # 8.52 10^3/uL (1.8-7.7); Neutrophils % 87.6 %; Nucleated Red Blood Cells % 0 %; Platelet Count 305 10^3/cmm (130-400); Red Blood Count 4.97 10^6/uL (4.1-5.3); White Blood Count 9.7 10^3/uL (4.0-10.0)
[2020-12-20] MEDS: insulin lispro 100 unit/1 mL SUBCUT ×3 (08:03→20:05)
[2020-12-20] MEDS: insulin glargine 100 units/1 mL 10 UNIT SUBCUT ×2 (08:03→20:05)
[2020-12-20 08:06] LABS: NT Pro B Type Natriuretic Pept 216 pg/mL (0-125); Procalcitonin 0.09 ng/mL (0-0.5)
[2020-12-20 08:13] LABS: Alanine Aminotransferase 41 U/L (0-41); Albumin Level 3.5 g/dL (3.5-5.2); Alkaline Phosphatase 65 IU/L (40-130); Anion Gap 17.7 (5-19); Aspartate Amino Transferase 29 U/L (0-40); Blood Urea Nitrogen 18 mg/dL (8-23); Calcium 8.9 mg/dL (8.5-10.5); Carbon Dioxide 25 mmol/L (22-29); Globulin 3.4 g/dL (1.3-4.6); Osmolality Calculated 288 mOsm/kg (285-295); Phosphorus 3.3 mg/dL (2.5-4.5); Potassium 4.7 mmol/L (3.5-5.1); Total Bilirubin 0.6 mg/dL (0.15-1.2); Total Protein 6.9 g/dL (6.6-8.7)
[2020-12-20 08:17] LABS: Creatine Phosphokinase 42 U/L (39-308)
[2020-12-20] MEDS: budesonide 0.5 mg/2 mL Neb INHALATION ×2 (08:26→20:52)
[2020-12-20 08:42] LABS: Chloride 96 mmol/L (98-107); Creatinine Clr Calc Pharmacy 148.6767; Glomerular Filtration Rate 136.5 mL/min (90-130); Glucose 252 mg/dL (65-115); Sodium 134 mmol/L (136-145)
[2020-12-20 08:43] LABS: C Reactive Protein 15.6 mg/L (0.0-4.9)
[2020-12-20 09:33] LABS: ABG PH Result 7.46 (7.35-7.45); Arterial Blood Gas Hematocrit 47.4 % (42-52); Base Excess ABG -0.5 mmol/L (-2.0-2.0); Blood Gas Allen Test Pos; Blood Gas Operator Identificat CAK; Blood Gas Sample Site Radial, left; Blood Gas Sample Type Arterial; HCO3 ABG 22.5 mmol/L (22-26); Oxygen Device HAG; PO2 ABG 54.9 mmHg (80.0-100.0)
[2020-12-20] MEDS: pantoprazole DR 40 mg Tablet PO (09:53)
[2020-12-20 11:37] LABS: Glucose Point of Care 329 mg/dL (70-110)
--- NOTE | 2020-12-20 14:00 | P.CONIM_ITS ---
Providers/Reason For Consult Consulting Physician/Specialty*: Pulmonary and critical care medicine Reason for Consult*: Acute hypoxic respiratory failure with severe COVID-19 Attending Physician: Rodney Pinzon MD History of Present Illness History of Present Illness Jeff Chahal is a 60 year old male who presented to the hospital on December 17 with worsening shortness of breath. The patient was diagnosed with COVID-19 6 days prior to that. In the emergency department the patient was hypoxic requiring 15 L nonrebreather mask which was then switched to high flow nasal cannula. CT angiogram of the chest revealed no pulmonary embolism. The patient had bilateral groundglass opacities primary in the peripheral distribution co nsistent with COVID-19. Initial blood work revealed elevated liver enzymes, C- reactive protein of 71.4. The patient was started on remdesivir, dexamethasone, empiric antibiotics. He has also been on baricitinib. The patient had been in ICU since he came in. His oxygen requirement has gone up since he was hospitalized. The patient required noninvasive positive pressure ventilation due to hypoxia earlier. I had seen and examined the patient in the ICU today. The patient was visibly tachypneic but resting in bed. The patient denied any significant shortness of breath at least while resting. He has cough with very minimal sputum production. The patient tells me that his fever and fatigue has gotten better since he came to the hospital. His chest x-ray this morning revealed bilateral infiltrate primarily in basilar areas. Review of Systems Narrative: General: No fevers or chills but the patient complains of fatigue Skin: No rash HEENT: No nasal congestion, rhinitis, sinusitis at this point Neck: There is no neck swelling Respiratory: Please see my HPI. Cardiovascular: No chest pain or resting shortness of breath Gastrointestinal: No abdominal pain, nausea, vomiting, or diarrhea Musculoskeletal: No joint pain or swelling Neurological: Patient is awake alert and oriented x3, no paralysis, gross motor function is normal. Psychiatric: No anxiety or depression. Meds/Allergies Home Medications and Allergies Home Medications Medication Instructions Recorded Confirmed Last Taken Type acetaminophen [Tylenol Ex Str 1,000 mg PO Q4H PRN 12/17/20 12/17/20 Unknown History Rapid Release] amitriptyline 50 mg PO BEDTIME 12/17/20 12/17/20 Unknown History atorvastatin 20 mg PO QAM 12/17/20 12/17/20 Unknown History ibuprofen 400 mg PO Q4H PRN 12/17/20 12/17/20 Unknown History metformin 1,000 mg PO BID 12/17/20 12/17/20 Unknown History multivitamin 1 tab PO DAILY 12/17/20 12/17/20 Unknown History saxagliptin [Onglyza] 5 mg PO BEDTIME 12/17/20 12/17/20 Unknown History Allergies Allergy/AdvReac Type Severity Reaction Status Date / Time Penicillins Allergy Unknown Verified 12/17/20 08:19 Current Medications Current Medications Generic Name Dose Route Start Last Admin Trade Name Freq PRN Reason Stop Dose Admin Albuterol/Ipratropium 3 ml 12/17/20 03:00 12/20/20 08:26 Ipratropium-Albuterol 3 Ml Neb INHALATION 3 ml Q6H.RESPIRATORY NED Administration Baricitinib 4 mg 12/18/20 14:00 12/19/20 15:02 Baricitinib 2 Mg Tablet PO 4 mg Q24H NED Administration Benzonatate 100 mg 12/17/20 02:24 12/19/20 08:02 Benzonatate 100 Mg Capsule PO 100 mg TID PRN Administration COUGH Budesonide 0.5 mg 12/17/20 08:00 12/20/20 08:26 Budesonide 0.5 Mg/2 Ml Neb INHALATION 0.5 mg BID.RESPIRATORY NED Administration Dexamethasone 6 mg 12/17/20 03:00 12/20/20 02:07 Dexamethasone 4 Mg/Ml Inj IVP 6 mg Q24H NED Administration Enoxaparin Sodium 40 mg 12/17/20 03:00 12/20/20 02:07 Enoxaparin 40 Mg/0.4 Ml Syringe SUBCUT 40 mg Q24H NED Administration Ceftriaxone Sodium 1,000 mg/ 50 mls @ 100 mls/hr 12/17/20 03:00 12/20/20 02:37 Sodium Chloride IV Infused Q24H NED Infusion Protocol Remdesivir 100 mg/ Sodium 100 mls @ 100 mls/hr 12/18/20 06:00 12/20/20 05:50 Chloride IV 12/22/20 06:59 100 mls/hr Q24H NED Administration Insulin Glargine 10 unit 12/19/20 09:00 12/20/20 08:03 Insulin Glargine 100 Units/1 Ml SUBCUT 10 unit Q12H NED Administration Insulin Human Lispro 0 unit 12/19/20 08:00 12/20/20 11:50 Insulin Lispro 100 Unit/1 Ml SUBCUT 12 unit TIDWM NED Administration Protocol Morphine Sulfate 2 mg 12/17/20 02:24 12/20/20 03:19 Morphine 4 Mg/Ml Sdv 1 Ml IVP 2 mg Q4H PRN Administration SEVERE PAIN Pantoprazole Sodium 40 mg 12/17/20 09:00 12/20/20 09:[address] 40 Mg Tablet PO 40 mg DAILY NED Administration Vitals/I&O/Wt Last Vital Signs Temp 98.7 F 12/20/20 10:00 Pulse 67 12/20/20 12:00 Resp 32 H 12/20/20 12:00 BP 133/65 12/20/20 12:00 Pulse Ox 91 12/20/20 12:00 12/19/20 12/20/20 12/20/20 22:59 06:59 14:59 Intake Total 240 / 1200 1050 / 2250 370 / 370 Output Total 1375 / 2200 800 / 3000 950 / 950 Balance -1135 / -1000 250 / -750 -580 / -580 Weight last 48 hrs Weight 212 lb 7 oz Physical Exam Narrative: EXAM NARRATIVE: General: Patient is awake alert and oriented, visibly tachypneic Neck: No JVD Respiratory: Auscultation: Reduced breath sound bilaterally, minimal crackles at lung bases Cardiovascular: Regular rate and rhythm, S1-S2 present, no murmur, no peripheral edema. Abdomen: Soft, nontender, nondistended, positive bowel sound Musculoskeletal: No obvious joint deformity Skin: No rash Neuro: Mental status is normal, no gross cranial nerve deficit, normal motor and coordination. Data Other Data: Attestation for Other Data: I personally reviewed and interpreted the following: Other data: I have reviewed the patient's laboratory, [place] and radiologic data. Please see the HPI for detail. The patient has hyperglycemia which has likely gotten worsened with dexamethasone. A&P Assessment and plan (1) Acute respiratory distress syndrome: This is a 60-year-old gentleman with acute hypoxic respiratory failure secondary to SARS-CoV-2 pneumonia. The patient has severe COVID-19. Currently the patient is on high flow nasal cannula and saturating in the high 80s to low 90s. The patient is tachypneic however his mental status is good at this point. If necessary, will add additional oxygen with a facemask or nonrebreather mask. If the patient's mental status worsens or the hypoxemia becomes persistent with SPO2 less than 85% consistently the patient may require intubation and mechanical ventilation. If the patient needs noninvasive positive pressure ventilation, please use CPAP rather than using BiPAP. Status: Acute (2) Pneumonia due to COVID-19 virus: The patient is currently on remdesivir, dexamethasone. The patient was on baricitinib. The patient has evidence of hyper inflammatory response. We will give the patient Tocilizumab. Discontinue baricitinib. The patient is broadly covered with antibiotic at this time. There is no definitive evidence of a secondary bacterial infection. Status: Acute (3) Hyperglycemia: The patient is on long-acting insulin. There has likely been worsening of steroid-induced hyperglycemia in addition to his diabetes. The patient is on long-acting insulin and NovoLog. The blood sugar goal is less than 180 mg/dl. 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
--- NOTE | 2020-12-20 16:59 | PM.PN ---
Subjective Subjective: Interval history: Patient was seen this morning, he sitting up into a chair, he is a bit more short of breath he tells me, no fevers, no chills, no nausea, no vomiting, Vitals/I&O/Wt Last Vital Signs Temp 98.7 F 12/20/20 10:00 Pulse 87 12/20/20 14:32 Resp 18 12/20/20 14:31 BP 146/79 12/20/20 14:00 Pulse Ox 91 12/20/20 14:31 12/20/20 12/20/20 12/20/20 06:59 14:59 22:59 Intake Total 1050 / 2250 470 / 470 Output Total 800 / 3000 1350 / 1350 Balance 250 / -750 -880 / -880 Weight last 48 hrs Weight 96.36 kg Physical Exam Const: COMMON NORMALS: no acute distress and patient oriented x3 HENMT: COMMON NORMALS: normocephalic HEAD & SCALP: normocephalic Resp: COMMON NORMALS: normal respiratory effort, No retractions, No use of accessory muscles and clear to auscultation bilaterally AUSCULTATION: clear to auscultation bilaterally Cardio: COMMON NORMALS: regular rate, regular rhythm, S1 normal heart sound present and S2 normal heart sound present RATE: regular rate RHYTHM: regular rhythm HEART SOUNDS: S1 normal heart sound present and S2 normal heart sound present GI: COMMON NORMALS: Normal to inspection, nondistended, normoactive bowel sounds present, Soft to palpation and non-tender PALPATION: Yes Soft to palpation Extremity: COMMON NORMALS: no pedal edema Neuro: COMMON NORMALS: patient oriented x3 Psych: COMMON NORMALS: mental status grossly normal Data : 12/20/20 07:24 12/20/20 07:24 A&P Assessment and plan (1) Pneumonia due to COVID-19 virus: Acute hypoxic respiratory failure, with acute respiratory distress syndrome Currently admitted in ICU -Evidence of mild respiratory failure this morning, with nasal flaring, shortness of breath, desats into the low 80s on 86% FiO2. Also with evidence of encephalopathy, has quite delayed response times, when asked her what year it was it took him over 30 seconds to tell me was 2020 Currently on 50 L, 86 %, BiPAP as needed Increased risk of intubation in the next 24-48 hrs. Received monoclonal antibody this morning at [facility] reportedly Remdesivir 100 mg IV daily day 3 Hold baricitinib, 1 dose Actemra today dexamethasone 6mg IVP daily duoneb q6h, budesonide q12h empiric CTX Flutter valve/spirometer at bedside trend inflammatory markers including CRP,D dimer CTA chest negative for PE Full code Lovenox for DVT prophylaxis Pulmonary on consult Type 2 diabetes mellitus, low-dose sliding scale, Lantus 10 every 12 Status: Acute (2) Respiratory failure with hypoxia: Status: Acute (3) Acute respiratory distress syndrome: Status: Acute (4) Transaminitis: Status: Acute Attestations Medical Necessity Statement*: Patient requires hospitalization due to neurosurgery COVID-19 Coding Level of Care Code Acute 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
[2020-12-20 17:32] LABS: Glucose Point of Care 287 mg/dL (70-110)
[2020-12-20] MEDS: acetaminophen 325 mg Tablet 650 MG PO (17:36)
[2020-12-20 19:53] LABS: Glucose Point of Care 243 mg/dL (70-110)
[2020-12-20 19:55] LABS: Glucose Point of Care 270 mg/dL (70-110)
[2020-12-21] VITALS (67 sets, daily range): BP systolic 113–164; BP diastolic 66–84; PULSE 52–101; RESP 17–32; TEMP 36.1–37; O2SAT 82–98
[2020-12-21] MEDS: cefTRIAXone 1,000 MG in sodium chloride 0.9% (plus) 50 ML 100 MG IV (02:07)
[2020-12-21] MEDS: dexamethasone 4 mg/mL INJ 6 MG IVP (02:08)
[2020-12-21] MEDS: enoxaparin 40 mg/0.4 mL Syringe SUBCUT (02:08)
[2020-12-21] MEDS: ipratropium-albuterol 3 mL Neb INHALATION ×4 (03:12→20:04)
[2020-12-21 03:24] LABS: Basophils % 0.4 %; Eosinophils % 0.2 %; Hematocrit 43.1 % (42.0-52.0); Hemoglobin 14.5 g/dL (11.7-16.6); Lymphocytes % 11.7 %; Mean Corpuscular HGB Conc 33.6 g/dL (30.0-36.0); Mean Corpuscular Volume 89.2 fl (80-94); Mean Platelet Volume 9.4 fL (7.4-10.4); Monocytes # 0.3 10^3/uL (0.2-0.9); Monocytes % 3.3 %; Neutrophils # 6.57 10^3/uL (1.8-7.7); Neutrophils % 81.1 %; Nucleated Red Blood Cells % 0.2 %; Platelet Count 289 10^3/cmm (130-400); Red Blood Count 4.83 10^6/uL (4.1-5.3); White Blood Count 8.1 10^3/uL (4.0-10.0)
[2020-12-21 03:53] LABS: Lactate (Lactic Acid level) 1.3 mmol/L (0.5-2.2)
[2020-12-21 04:02] LABS: Alanine Aminotransferase 42 U/L (0-41); Albumin Level 3.3 g/dL (3.5-5.2); Alkaline Phosphatase 60 IU/L (40-130); Anion Gap 16.4 (5-19); Aspartate Amino Transferase 25 U/L (0-40); Blood Urea Nitrogen 16 mg/dL (8-23); C Reactive Protein 51.3 mg/L (0.0-4.9); Calcium 9.1 mg/dL (8.5-10.5); Carbon Dioxide 24 mmol/L (22-29); Chloride 99 mmol/L (98-107); Creatine Phosphokinase 27 U/L (39-308); Globulin 3.6 g/dL (1.3-4.6); Glucose 182 mg/dL (65-115); NT Pro B Type Natriuretic Pept 203 pg/mL (0-125); Osmolality Calculated 286 mOsm/kg (285-295); Phosphorus 4.3 mg/dL (2.5-4.5); Potassium 4.4 mmol/L (3.5-5.1); Sodium 135 mmol/L (136-145); Total Bilirubin 0.6 mg/dL (0.15-1.2); Total Protein 6.9 g/dL (6.6-8.7)
[2020-12-21 04:30] LABS: Procalcitonin 0.11 ng/mL (0-0.5)
[2020-12-21] MEDS: remdesivir 100 MG in sodium chloride 0.9% (100 ml) 100 ML IV (05:45)
--- NOTE | 2020-12-21 07:00 | XRR_ITS ---
PROCEDURE INFORMATION: Exam: XR Chest Exam date and time: 12/21/2020 7:00 AM Age: 60 years old Clinical indication: Shortness of breath; Additional info: SOB TECHNIQUE: Imaging protocol: XR of the chest. Views: 1 view. COMPARISON: CR (CHEST, ) 12/20/2020 5:04 AM FINDINGS: Lungs: Bilateral interstitial infiltrates are present especially in the lung bases. These have not significantly changed since previous study. Pleural spaces: Unremarkable. No pleural effusion. No pneumothorax. Heart/Mediastinum: Unremarkable. No cardiomegaly. Bones/joints: Unremarkable. XR/XR chest 1V portable [id number] IMPRESSION: There has been no significant change in bilateral interstitial pulmonary infiltrates. Radiation Dose CTDIVOL = (mGy): DLP = (mGy-cm)
[2020-12-21] MEDS: budesonide 0.5 mg/2 mL Neb INHALATION ×2 (07:51→20:04)
[2020-12-21 07:53] LABS: Glucose Point of Care 277 mg/dL (70-110)
[2020-12-21] MEDS: insulin lispro 100 unit/1 mL SUBCUT ×4 (08:32→20:31)
[2020-12-21] MEDS: pantoprazole DR 40 mg Tablet PO (08:48)
[2020-12-21] MEDS: insulin glargine 100 units/1 mL 15 UNIT SUBCUT (08:48)
--- NOTE | 2020-12-21 09:40 | PC.NURSE ---
Sputum collected. Delivered to Jessika in lab.
[2020-12-21 11:10] LABS: Glucose Point of Care 298 mg/dL (70-110)
--- NOTE | 2020-12-21 13:45 | P.PN_ITS ---
Subjective Subjective: Interval history: Patient was seen this morning, no events overnight, this morning looks less short of breath, alert oriented x3, nurses tell me that he is displaying evidence of brain fog, patient's response times are a bit delayed, but does gets most questions appropriate, follows all commands, does tell me that he feels weak, decreased appetite, no nausea, no vomiting Vitals/I&O/Wt Last Vital Signs Temp 98.0 F 12/21/20 10:00 Pulse 72 12/21/20 13:00 Resp 23 H 12/21/20 13:00 BP 117/79 12/21/20 13:00 Pulse Ox 85 L 12/21/20 13:00 12/20/20 12/21/20 12/21/20 22:59 06:59 14:59 Intake Total 100 / 570 300 / 870 236 / 236 Output Total 1310 / 2660 575 / 3235 200 / 200 Balance -1210 / -2090 -275 / -2365 36 / 36 Weight last 48 hrs Weight 92.487 kg Weight 96.36 kg Physical Exam Const: COMMON NORMALS: no acute distress and patient oriented x3 HENMT: COMMON NORMALS: normocephalic HEAD & SCALP: normocephalic Resp: COMMON NORMALS: normal respiratory effort, No retractions, No use of accessory muscles and clear to auscultation bilaterally AUSCULTATION: clear to auscultation bilaterally Cardio: COMMON NORMALS: regular rate, regular rhythm, S1 normal heart sound present and S2 normal heart sound present RATE: regular rate RHYTHM: regular rhythm HEART SOUNDS: S1 normal heart sound present and S2 normal heart sound present GI: COMMON NORMALS: Normal to inspection, nondistended, normoactive bowel sounds present, Soft to palpation and non-tender PALPATION: Yes Soft to palpation Extremity: COMMON NORMALS: no pedal edema Neuro: COMMON NORMALS: patient oriented x3 Psych: COMMON NORMALS: mental status grossly normal Data : 12/21/20 03:05 12/21/20 03:05 Micro: Microbiology 12/21/20 09:30 Gram Stain - Final Sputum - Expectorated Sputum A&P Assessment and plan (1) Pneumonia due to COVID-19 virus: Acute hypoxic respiratory failure, with acute respiratory distress syndrome Currently admitted in ICU -Has brain fog associated with COVID-19 -No evidence of respiratory distress this morning Currently on 40 L, 80%, CPAP as needed Increased risk of intubation in the next 24-48 hrs. Received monoclonal antibody this morning at [facility] reportedly Remdesivir 100 mg IV daily day 4 Hold baricitinib received 3 doses, 1 dose Actemra yesterday dexamethasone 6mg IVP daily duoneb q6h, budesonide q12h empiric CTX Flutter valve/spirometer at bedside trend inflammatory markers including CRP,D dimer CTA chest negative for PE Full code Lovenox for DVT prophylaxis Pulmonary on consult Type 2 diabetes mellitus, moderate dose sliding scale, Lantus 20 every 12 Status: Acute (2) Respiratory failure with hypoxia: Status: Acute (3) Acute respiratory distress syndrome: Status: Acute (4) Transaminitis: Status: Acute Attestations Medical Necessity Statement*: Patient requires hospitalization due to pneumonia sec to COVID-19 Coding Level of Care Code Acute 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
[2020-12-21 17:47] LABS: Glucose Point of Care 212 mg/dL (70-110)
[2020-12-21 19:07] LABS: Glucose Point of Care 246 mg/dL (70-110)
--- NOTE | 2020-12-21 19:30 | PC.NURSE ---
Pt sat in chair majority of day. Tolerated well. Pt unintentionally mouth breathes. Napped in bed for two hours. Up to chair at 1700. Placed on NS 10 L. Desat to 65. HHF replaced by RT. Slow to recover.
[2020-12-21] MEDS: insulin glargine 100 units/1 mL 20 UNIT SUBCUT (20:31)
[2020-12-22] VITALS (136 sets, daily range): BP systolic 80–205; BP diastolic 53–137; PULSE 53–93; RESP 15–31; TEMP 35.9–37.1; O2SAT 78–99
--- NOTE | 2020-12-22 01:55 | PC.NURSE ---
Shift Note Frequent safety and comfort rounds continue. Orders and/or nursing care completed as indicated. Patient monitored for response to intervention and treatment(s). Education provided includes medications with side effects, fall safety, oxygen safety, cough and deep breathing, self proning, treatments with treatment goals. Patient verbalized understanding of education. Patient up in chair at shift change, goal set to stay in chair till bedtime, education provided on importance of being in chair. Patient called out approx 19:45 stating he could not tolerate being in chair any longer due to extreme fatigue. Patient appeared depressed, motivational talk given and provided total bed bath, washed hair, brushed teeth, changed linen and provided mental and emotional support. Patient still continues to have brain fog but did start to interact more and talk about his family and expressing how he can't wait to see his grandchildren when he gets better. Encouraged proning, patient too weak to self prone and not able to tolerate laying on belly so semi-proning provided with pillows and bed tilts. Will continue to monitor.
[2020-12-22] MEDS: enoxaparin 40 mg/0.4 mL Syringe SUBCUT (02:48)
[2020-12-22] MEDS: cefTRIAXone 1,000 MG in sodium chloride 0.9% (plus) 50 ML 100 MG IV (02:48)
[2020-12-22] MEDS: dexamethasone 4 mg/mL INJ 6 MG IVP (02:48)
--- NOTE | 2020-12-22 03:29 | XRR_ITS ---
PROCEDURE INFORMATION: Exam: XR Chest Exam date and time: 12/22/2020 3:29 AM Age: 60 years old Clinical indication: Dyspnea; Additional info: Increase SOB and oxygen requirements TECHNIQUE: Imaging protocol: XR of the chest. Views: 1 view. COMPARISON: CR (CHEST, ) 12/21/2020 6:53 AM FINDINGS: Lungs: Persistent bilateral airspace opacities. No large pleural effusion or pneumothorax. Pleural spaces: See Lungs finding. Heart/Mediastinum: Stable cardiomediastinal silhouette. Bones/joints: No acute osseous injury identified. XR/XR chest 1V portable [id number] IMPRESSION: Persistent bilateral airspace opacities. Radiation Dose CTDIVOL = (mGy): DLP = (mGy-cm)
[2020-12-22] MEDS: ipratropium-albuterol 3 mL Neb INHALATION ×3 (03:30→20:01)
[2020-12-22 04:25] LABS: Basophils % 0.4 %; Eosinophils # 0.2 10^3/uL (0.0-0.8); Eosinophils % 2.2 %; Lymphocytes # 0.9 10^3/uL (0.8-4.8); Lymphocytes % 9.3 %; Mean Corpuscular HGB Conc 33.3 g/dL (30.0-36.0); Mean Corpuscular Hemoglobin 29.4 pg (28.0-34.0); Mean Corpuscular Volume 88.2 fl (80-94); Mean Platelet Volume 9.8 fL (7.4-10.4); Monocytes # 0.3 10^3/uL (0.2-0.9); Monocytes % 2.8 %; Neutrophils % 80.9 %; Nucleated Red Blood Cells % 0 %; Platelet Count 375 10^3/cmm (130-400); Red Blood Count 5.44 10^6/uL (4.1-5.3); Red Cell Distribution Width 12.1 % (12.1-15.1); White Blood Count 9.8 10^3/uL (4.0-10.0)
[2020-12-22 04:58] LABS: Lactate (Lactic Acid level) 1.8 mmol/L (0.5-2.2)
[2020-12-22 04:58] LABS: Alveolar-Arterial Oxygen Gradi 79.8 mmHg (5-10); Base Excess ABG 2.6 mmol/L (-2.0-2.0); Blood Gas Sample Site Brachial, right; Blood Gas Sample Type Arterial; Carboxyhemoglobin 0.6 %THgb (0.4-20.1); HCO3 ABG 24.9 mmol/L (22-26); HGB O2 Sat 87.2 % (95-100); Ionized Calcium Level - ABG 1.2 mmol/L (1.1-1.4); Methemoglobin 0.8 % (0.4-1.5); Oxygen Device HAG; Oxygen Saturation ABG 88.4; PO2 ABG 53.2 mmHg (80.0-100.0); Potassium Level - ABG 4.3 mmol/L (3.5-5.0)
[2020-12-22 05:05] LABS: NT Pro B Type Natriuretic Pept 77 pg/mL (0-125); Procalcitonin 0.09 ng/mL (0-0.5)
[2020-12-22 05:15] LABS: Alanine Aminotransferase 43 U/L (0-41); Albumin Level 3.4 g/dL (3.5-5.2); Alkaline Phosphatase 69 IU/L (40-130); Anion Gap 20.2 (5-19); Aspartate Amino Transferase 27 U/L (0-40); Blood Urea Nitrogen 19 mg/dL (8-23); C Reactive Protein 33.4 mg/L (0.0-4.9); Calcium 9.4 mg/dL (8.5-10.5); Carbon Dioxide 23 mmol/L (22-29); Chloride 101 mmol/L (98-107); Globulin 3.7 g/dL (1.3-4.6); Glomerular Filtration Rate 136.5 mL/min (90-130); Glucose 145 mg/dL (65-115); NT Pro B Type Natriuretic Pept 78 pg/mL (0-125); Osmolality Calculated 295 mOsm/kg (285-295); Phosphorus 4.3 mg/dL (2.5-4.5); Potassium 4.2 mmol/L (3.5-5.1); Sodium 140 mmol/L (136-145); Total Bilirubin 0.6 mg/dL (0.15-1.2); Total Protein 7.1 g/dL (6.6-8.7)
[2020-12-22 05:20] LABS: Creatine Phosphokinase 24 U/L (39-308)
[2020-12-22] MEDS: remdesivir 100 MG in sodium chloride 0.9% (100 ml) 100 ML IV (05:34)
[2020-12-22 07:54] LABS: Glucose Point of Care 250 mg/dL (70-110)
[2020-12-22] MEDS: budesonide 0.5 mg/2 mL Neb INHALATION ×2 (08:56→20:01)
[2020-12-22] MEDS: insulin glargine 100 units/1 mL 20 UNIT SUBCUT ×2 (09:05→20:55)
[2020-12-22] MEDS: pantoprazole DR 40 mg Tablet PO (09:05)
[2020-12-22] MEDS: insulin lispro 100 unit/1 mL SUBCUT ×4 (09:06→20:55)
--- NOTE | 2020-12-22 09:33 | PC.CHAP ---
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 seafood technology specialist visit [] Patient/Family/Request visit [] Outpatient visit [] Follow-up visit [] Physician referral [] Code/Alert [x] Routine visit [] Staff referral [] Actively dying [] Patient sleeping [] Family support [] [] Out of room [] Palliative care [] [x] Receiving care in room [] Pre-surgical visit [] Trauma [] Long length of stay [x] ICU visit [] Other: Relational/Emotional Strength [] Patient feels connected with others/family/visitors/staff [] Distress [] Loneliness/isolation [] Abandonment Spirituality of Patient [] Person of Elvia [] Attends Taoist of their Elvia [] Believes in Prayer [] Reads Bible or Restoration materials [] There are Spiritual issues to be addressed Traffic Supervisor Interventions [x] Prayer [] Active listening [] Non-anxious presence [] Spiritual/emotional support [] Crisis/trauma care [] Spiritual counseling [] Bereavement support [] Provided bereavement packet [] Provided Bible/devotional materials [] Provided toy/stuffed animal, coloring book to patient or family member [] Provided Communion [] Anointing/[place] [] Salvation [x] Completed spiritual assessment [] Other: Impact on Illness or Injury [] Angry [] Fearful [] Anxious [] Often cries [] Exhaustion [] Unable to work [] Unable to attend methodist [] Unable to walk/stand [] Unable to read [] Unable to drive [] Unable to eat/drink [] Unable to sleep [] Unable to be with family [] Patient intubated [] Other: Summary Time spent with patient
--- NOTE | 2020-12-22 10:22 | PM.PN ---
Subjective Subjective: Interval history: Reports he is currently feeling little bit better. Denies chest pain or pressure. He has been coughing a little bit. No nausea or vomiting or diarrhea. No headache. Discussed with him regarding progressively worsening oxygenation. Decreasing saturation despite increasing FiO2 up to 100%. Discussed with him consideration of further steps. Discussed in some cases support with BiPAP is provided, although it is not the optimal route. Discussed given progressive worsening consideration of intubation, mechanical ventilation, proning with sedation and paralytics, discussed potential complications of such including ventilator associated pneumonia, pneumothorax, protracted delirium, other complications possible with intubation mechanical ventilation in setting of the viral pneumonia with high burden of inflammation. Discussed consideration of alternative of more watchful supportive care as currently. Discussed risk of intubation procedure itself including risk of complications during intubation, including severe hypoxia due to limited reserve and oxygenation during the procedure, and we discussed that delay intubation may further increase risks in case of procedure is done emergently. He stated would take his time and let us know with regards to his wishes. I have notified he has decided to proceed today with intubation, mechanical ventilatory support. Vitals/I&O/Wt Last Vital Signs Temp 98.8 F 12/22/20 09:30 Pulse 86 12/22/20 10:00 Resp 27 H 12/22/20 10:00 BP 120/83 12/22/20 10:00 Pulse Ox 90 12/22/20 10:00 12/21/20 12/22/20 12/22/20 22:59 06:59 14:59 Intake Total 50 / 446 200 / 646 Output Total 990 / 1490 400 / 1890 500 / 500 Balance -940 / -1044 -200 / -1244 -500 / -500 Weight last 48 hrs Weight 88.36 kg Weight 92.487 kg Physical Exam Const: COMMON NORMALS: no acute distress, patient oriented x3 and alert GENERAL APPEARANCE: cooperative ORIENTATION/CONSCIOUSNESS: Yes awake OTHER: Generally weak HENMT: COMMON NORMALS: oropharynx normal Neck/C-Spine: COMMON NORMALS: no JVD Resp: COMMON NORMALS: normal respiratory effort and clear to auscultation bilaterally AUSCULTATION: clear to auscultation bilaterally Cardio: COMMON NORMALS: no JVD, regular rhythm, S1 normal heart sound present, S2 normal heart sound present and No murmurs present (Cardio) RHYTHM: regular rhythm HEART SOUNDS: S1 normal heart sound present and S2 normal heart sound present GI: COMMON NORMALS: Normal to inspection, nondistended, normoactive bowel sounds present, Soft to palpation and non-tender PALPATION: Yes Soft to palpation Extremity: COMMON NORMALS: no joint enlargement and no pedal edema Neuro: COMMON NORMALS: patient oriented x3 and moves all extremities SENSORIUM/ORIENTATION: Yes alert Skin: COMMON NORMALS: no rashes or lesions noted GENERAL SKIN EXAM: no rashes or lesions noted Data : 12/22/20 03:55 12/22/20 03:55 Micro: Microbiology 12/21/20 09:30 Gram Stain - Final Sputum - Expectorated Sputum Sputum Culture - Preliminary 12/16/20 23:13 Blood Culture - Final Blood NO GROWTH AFTER 5 DAYS 12/16/20 23:00 Blood Culture - Final Blood NO GROWTH AFTER 5 DAYS A&P Assessment and plan (1) Pneumonia due to COVID-19 virus: Worsening oxygenation. Appreciate pulmonology. Assessment and recommendations. Discussed plans and patient wishes with regards to care. Likely intubation today with mechanical ventilation, proning with paralytics and sedation. Continue Decadron. Empirically on ceftriaxone. Received monoclonal antibody this morning at [facility] reportedly Completed remdesivir Hold baricitinib received 3 doses, 1 dose Actemra duoneb q6h, budesonide q12h empiric CTX Flutter valve/spirometer at bedside CTA chest negative for PE Full code Lovenox for DVT prophylaxis Status: Acute (2) Respiratory failure with hypoxia: Status: Acute (3) Acute respiratory distress syndrome: Status: Acute (4) Transaminitis: Status: Acute Additional A&P Information Type 2 diabetes mellitus, moderate dose sliding scale, Lantus 20 every 12 Attestations Medical Necessity Statement*: Continue admission for hypoxic hypoxic respiratory failure secondary to severe COVID-19 Coding Level of Care Code Acute Rectifying Attendant for [facility] Diagnoses Pneumonia due to COVID-19 virus U07.1; J12.82 Respiratory failure with hypoxia J96.91 Acute respiratory distress syndrome J80 Transaminitis R74.01
[2020-12-22 11:45] LABS: Glucose Point of Care 196 mg/dL (70-110)
[2020-12-22] MEDS: succinylcholine 20 mg/mL SDV 10mL 100 MG IVP (12:46)
[2020-12-22] MEDS: propofol 1,000 MG/100 ML INJ 10.6 MG IV (12:58)
--- NOTE | 2020-12-22 13:43 | XR_ITS ---
WS: [id number] Exam: XR chest 1V portable [id number] Date/Time of Exam: 12/22/2020 1:45 PM Reason For Exam: intubated Comparison made with previous study performed on the same day at 0342 hours. An endotracheal tube has been placed and ends about 7 cm above the jun in good position. A left-si ded IJ central line ends in the lower one third of the SVC. An enteric tube is in place ending in the stomach but the side-port of the tube may be near the GE junction. Patchy bilateral infiltrates note d throughout both lungs show little change since previous study. Probable small right pleural effusio n. No pneumothorax. Regional bony elements are intact. Cardiomediastinal silhouette is unremarkable. Bony structures are intact. XR/XR chest 1V portable [id number] IMPRESSION: 1. ET tube in place ending about 7 cm above the jun in good position. Left-s ided IJ catheter ending in the lower one third of the SVC. 2. Enteric tube ending in the stomach however the side-port of the tube is near the GE junction. The tube should be advanced another 6 to 7 cm for optimal pos ition. 3. Patchy groundglass infiltrates throughout both lungs unchanged.
--- NOTE | 2020-12-22 14:04 | PC.NURSE ---
Intubated at 1258 by Veronica Horan, RT; Shay, RN; Carolyn RN. See MAR. No complications. Family notified.
--- NOTE | 2020-12-22 14:06 | PM.ACPR ---
Procedure/Consent Time out: Time Out Performed: Yes Consent: Consent for Procedure: Consent obtained from patient and Agrees to proceed with procedure Additional Consent Information: Verbal consent was obtained from the patient. Procedure Narrative: Name of the procedure: Endotracheal intubation. Indication: Hypoxic respiratory failure. Medications: Etomidate 20 mg, succinylcholine 100 mg Procedure: The patient was positioned optimally. The patient was oxygenated with 100% oxygen with high flow nasal cannula. Additionally, nonrebreather mask was placed over the face.. Name of the procedure: After appropriate medications were given, the video laryngoscope blade was introduced and advanced till vocal cords were visualized. The endotracheal tube was advanced through the vocal cords under direct visualization. There was fogging of the ET tube, positive change in end-tidal CO2 monitor, bilateral chest rise, bilateral positive breath sound. The ET tube was secured at 24 cm at the lips. Complications: There was no immediate complications. Chest x-ray: ET tube is 5 cm from the jun. Acute Procedures Epistaxis Control: Time out performed: Yes
--- NOTE | 2020-12-22 14:08 | PC.NURSE ---
Sister, Carmencita, called an notified of intubation. No further questions.
--- NOTE | 2020-12-22 14:29 | PM.ACPR ---
Procedure/Consent Time out: Time Out Performed: Yes Consent: Consent for Procedure: Emergency procedure Procedure Narrative: Name of the Procedure: Left Internal Jugular Central venous catheter placement under ultrasound guidance. Indication: Frequent blood work and possible need for vasopressor Anesthesiia: Lidocaine 1%, 5 ml Description of the procedure: The left IJ vein was identified with the Ultrasound from collapsibility and lack of pulsatility. The site was prepared using sterile technique. The skin and subcuteneous tissue was anesthetized using lidocaine. The introducer needle was advanced under US guidance till flash back was noted. Dark, non pulsatile blood noted. Using seldinger technique the CVC was put in.Blood return was noted in all ports. Catheter was secured with suture and covered with transparent dressing. Complications: None X-ray: The central venous catheter tip. At the junction of the superior vena cava and right atrium Acute Procedures Epistaxis Control: Time out performed: Yes
--- NOTE | 2020-12-22 14:31 | P.PN_ITS ---
Subjective Subjective: Interval history: The patient was seen and examined. He was requiring 100% oxygen on high flow nasal cannula. The patient appeared tired this morning. After discussion with the patient we had planned on proceeding with intubation. Medications: Reviewed: Yes Vitals/I&O/Wt Last Vital Signs Temp 98.8 F 12/22/20 09:30 Pulse 85 12/22/20 12:00 Resp 25 H 12/22/20 14:04 BP 123/73 12/22/20 12:00 Pulse Ox 94 12/22/20 14:04 12/21/20 12/22/20 12/22/20 22:59 06:59 14:59 Intake Total 50 / 446 200 / 646 16.238 / 16.238 Output Total 990 / 1490 400 / 1890 500 / 500 Balance -940 / -1044 -200 / -1244 -483.762 / -483.762 Weight last 48 hrs Weight 194 lb 12.8 oz Weight 203 lb 14.4 oz Physical Exam Narrative: EXAM NARRATIVE: General: Patient is awake alert and oriented, visibly tachypneic. Appears to be tiring out Neck: No JVD Respiratory: Auscultation: Reduced breath sound bilaterally, minimal crackles at lung bases Cardiovascular: Regular rate and rhythm, S1-S2 present, no murmur, no peripheral edema. Abdomen: Soft, nontender, nondistended, positive bowel sound Musculoskeletal: No obvious joint deformity Skin: No rash Neuro: Mental status is normal, no gross cranial nerve deficit, normal motor and coordination. Urinary Catheter Management^: Sloan: Cath Placed During This Visit: yes Urinary Catheter Date of Insertion: 12/22/20 Urinary Catheter Time of Insertion: 14:01 Data : 12/22/20 03:55 12/22/20 03:55 Micro: Microbiology 12/21/20 09:30 Gram Stain - Final Sputum - Expectorated Sputum Sputum Culture - Preliminary 12/16/20 23:13 Blood Culture - Final Blood NO GROWTH AFTER 5 DAYS 12/16/20 23:00 Blood Culture - Final Blood NO GROWTH AFTER 5 DAYS Attestation for Other Data: I personally reviewed and interpreted the following: Other data: I have reviewed the patient's laboratory microbiologic and radiologic data. The chest x-ray from this morning revealed bilateral inf iltrate essentially unchanged from before. A&P Assessment and plan (1) Acute respiratory distress syndrome: This is a 60-year-old gentleman with acute hypoxic respiratory failure secondary to SARS-CoV-2 pneumonia. The patient has severe COVID-19. His oxygen saturation was in the low 80s on high flow nasal cannula 100%. The patient needed additional oxygen supplementation with nonrebreather mask. The patient's appears to be tiring out. After discussion we have decided to proceed with intubation mechanical ventilation. The patient will be in lung protective ventilator strategy with prone posit ioning with paralytics following intubation. Status: Acute (2) Pneumonia due to COVID-19 virus: The patient is currently on remdesivir, dexamethasone. The patient was on baricitinib. The patient had received a dose of Tocilizumab on December 20. The patient is on ceftriaxone. There is no evidence of secondary bacterial infection at this point. Status: Acute (3) Hyperglycemia: The patient is having persistent hyperglycemia. We will adjust insulin regimen. Blood sugar goal less than 180. 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
[2020-12-22] MEDS: cisatracurium 100 MG in sodium chloride 0.9% 50 ML IV (15:04)
[2020-12-22] MEDS: propofol 1,000 MG/100 ML INJ 23.86 MG IV (15:40)
[2020-12-22 16:08] LABS: ABG PCO2 42.5 mmHg (35-45); ABG PH Result 7.37 (7.35-7.45); Arterial Blood Gas Hematocrit 53.1 % (42-52); Base Excess ABG -0.8 mmol/L (-2.0-2.0); Blood Gas Allen Test Pos; Blood Gas Sample Type Arterial; Carboxyhemoglobin 0.4 %THgb (0.4-20.1); HCO3 ABG 24.7 mmol/L (22-26); Ionized Calcium Level - ABG 1.3 mmol/L (1.1-1.4); Methemoglobin 0.9 % (0.4-1.5); Oxygen Saturation ABG 92.2; PO2 ABG 69.4 mmHg (80.0-100.0); Potassium Level - ABG 4.8 mmol/L (3.5-5.0); Total Hemoglobin 17.3 g/dL (14-18)
[2020-12-22 16:09] LABS: Alveolar-Arterial Oxygen Gradi 76.8 mmHg (5-10); Blood Gas Sample Site Radial, right; Oxygen Device VENT
[2020-12-22 17:38] LABS: Glucose Point of Care 209 mg/dL (70-110)
--- NOTE | 2020-12-22 19:01 | PC.NURSE ---
Shift Note Frequent safety and comfort rounds continue. Orders and/or nursing care completed as indicated. Patient monitored for response to intervention and treatment(s). Education provided includes ventilator education, oxygen and insulin education. Patient verbalized understanding of teaching this morning. Patient intubated at 1300 and proned at 1830. Oxygen saturation in the mid to high 90's with proning.
[2020-12-22] MEDS: propofol 1,000 MG/100 ML INJ 26.51 MG IV ×2 (19:32→23:22)
[2020-12-22 19:48] LABS: Glucose Point of Care 220 mg/dL (70-110)
[2020-12-22] MEDS: cisatracurium 100 MG in sodium chloride 0.9% 50 ML 9.54 MG IV (23:22)
[2020-12-23] VITALS (96 sets, daily range): BP systolic 84–141; BP diastolic 53–80; PULSE 65–90; RESP 19–22; TEMP 36.3–36.5; O2SAT 90–100
[2020-12-23] MEDS: ipratropium-albuterol 3 mL Neb INHALATION ×4 (03:06→20:14)
[2020-12-23] MEDS: propofol 1,000 MG/100 ML INJ 26.51 MG IV ×4 (03:12→09:57)
[2020-12-23] MEDS: cefTRIAXone 1,000 MG in sodium chloride 0.9% (plus) 50 ML 100 MG IV (03:12)
[2020-12-23] MEDS: enoxaparin 40 mg/0.4 mL Syringe SUBCUT (03:12)
[2020-12-23] MEDS: dexamethasone 4 mg/mL INJ 6 MG IVP (03:12)
--- NOTE | 2020-12-23 06:00 | XR_ITS ---
WS: [id number] Exam: XR chest 1V portable [id number] Date/Time of Exam: 12/23/2020 6:00 AM Reason For Exam: Hypoxia Comparison 12/22/2020. Bilateral pulmonary infiltrates have improved since last exam. The lungs remain fully inflated. No pl eural effusions. Normal cardiomediastinal silhouette. An ET tube the ends about 7 cm above the jun in good position. A left-sided central line ends in the lower one third of the SVC. An enteric tube enters the stomach but the tip is not visible. Monitoring leads superimpose the chest. Regional bony structures are unremarkable. XR/XR chest 1V portable [id number] IMPRESSION: 1. Improved bilateral pulmonary infiltrates since previous exam. 2. ET tube, central line and enteric tube all would appear to be in satisfactor y position.
--- NOTE | 2020-12-23 06:17 | PC.NURSE ---
Shift Note Uneventful shift. Sedation, paralytic continues at current rates. Levo titrated off, MAP >65. OG advanced per CXR. Proned throughout shift. Good uop. Afebrile. Frequent safety and comfort rounds continue. Orders and/or nursing care completed as indicated. Patient monitored for response to intervention and treatment(s). Education provided includes proning protocol. Patient and/or mortician supplies sales representative sedated, intubated, paralzyed. Will continue to monitor.
[2020-12-23 06:30] LABS: D Dimer 17.83 ug/mIFEU (0-0.59)
[2020-12-23 06:36] LABS: Alanine Aminotransferase 51 U/L (0-41); Albumin Level 3.5 g/dL (3.5-5.2); Alkaline Phosphatase 71 IU/L (40-130); Aspartate Amino Transferase 27 U/L (0-40); Blood Urea Nitrogen 26 mg/dL (8-23); Calcium 9.1 mg/dL (8.5-10.5); Carbon Dioxide 25 mmol/L (22-29); Chloride 101 mmol/L (98-107); Globulin 3.3 g/dL (1.3-4.6); Glomerular Filtration Rate 114.3 mL/min (90-130); Glucose 161 mg/dL (65-115); Magnesium 2.5 mg/dL (1.7-2.3); NT Pro B Type Natriuretic Pept 33 pg/mL (0-125); Osmolality Calculated 294 mOsm/kg (285-295); Sodium 138 mmol/L (136-145); Total Bilirubin 0.5 mg/dL (0.15-1.2); Total Protein 6.8 g/dL (6.6-8.7)
[2020-12-23 07:42] LABS: Glucose Point of Care 241 mg/dL (70-110)
[2020-12-23] MEDS: budesonide 0.5 mg/2 mL Neb INHALATION ×2 (07:43→20:14)
[2020-12-23 07:57] LABS: Basophils # 0.1 10^3/uL (0.0-0.1); Basophils % 0.6 %; Eosinophils # 0.4 10^3/uL (0.0-0.8); Eosinophils % 3.1 %; Hematocrit 51.2 % (42.0-52.0); Hemoglobin 16.5 g/dL (11.7-16.6); Lymphocytes # 0.6 10^3/uL (0.8-4.8); Lymphocytes % 4.6 %; Mean Corpuscular HGB Conc 32.2 g/dL (30.0-36.0); Mean Corpuscular Hemoglobin 30.4 pg (28.0-34.0); Mean Corpuscular Volume 94.3 fl (80-94); Mean Platelet Volume 9.5 fL (7.4-10.4); Monocytes # 0.4 10^3/uL (0.2-0.9); Monocytes % 3.5 %; Neutrophils # 10.59 10^3/uL (1.8-7.7); Neutrophils % 83.7 %; Nucleated Red Blood Cells % 0 %; Platelet Count 354 10^3/cmm (130-400); Red Blood Count 5.43 10^6/uL (4.1-5.3); Red Cell Distribution Width 12.5 % (12.1-15.1); White Blood Count 12.6 10^3/uL (4.0-10.0)
[2020-12-23] MEDS: insulin lispro 100 unit/1 mL SUBCUT ×4 (08:23→20:13)
[2020-12-23] MEDS: pantoprazole DR 40 mg Tablet PO (08:23)
[2020-12-23] MEDS: insulin glargine 100 units/1 mL 20 UNIT SUBCUT ×2 (08:24→20:13)
--- NOTE | 2020-12-23 09:17 | P.PN_ITS ---
Subjective Subjective: Interval history: Intubated, sedated, paralyzed. Vitals/I&O/Wt Last Vital Signs Temp 97.3 F L 12/23/20 07:30 Pulse 82 12/23/20 08:30 Resp 20 H 12/23/20 08:30 BP 111/72 12/23/20 08:30 Pulse Ox 97 12/23/20 08:30 12/22/20 12/23/20 12/23/20 22:59 06:59 14:59 Intake Total 345.430 / 981.240 1103.984 / 1551.685 100 / 100 Output Total 350 / 850 650 / 1500 Balance -4.570 / -472.299 523.984 / 51.685 100 / 100 Weight last 48 hrs Weight 87.997 kg Weight 88.36 kg Physical Exam Const: GENERAL APPEARANCE: patient mechanically ventilated HENMT: COMMON NORMALS: oropharynx normal Neck/C-Spine: COMMON NORMALS: no JVD Resp: COMMON NORMALS: normal respiratory effort and clear to auscultation bilaterally AUSCULTATION: clear to auscultation bilaterally Cardio: COMMON NORMALS: no JVD, regular rhythm, S1 normal heart sound present, S2 normal heart sound present and No murmurs present (Cardio) RHYTHM: regular rhythm HEART SOUNDS: S1 normal heart sound present and S2 normal heart sound present GI: COMMON NORMALS: Normal to inspection, nondistended, normoactive bowel cb nds present, Soft to palpation and non-tender PALPATION: Yes Soft to palpation Extremity: COMMON NORMALS: no joint enlargement and no pedal edema Neuro: COMMON NORMALS: moves all extremities Skin: COMMON NORMALS: no rashes or lesions noted GENERAL SKIN EXAM: no rashes or lesions noted Urinary Catheter Management^: Sloan: Cath Placed During This Visit: yes Reason for Continuing Indwelling Catheter: Accurate Measurement of Urinary Output in Critically Ill Patients Urinary Catheter Date of Insertion: 12/22/20 Urinary Catheter Time of Insertion: 14:01 Data : 12/23/20 05:00 12/23/20 05:00 Micro: Microbiology 12/21/20 09:30 Gram Stain - Final Sputum - Expectorated Sputum Sputum Culture - Preliminary A&P Assessment and plan (1) Pneumonia due to COVID-19 virus: Proned overnight. Hypoxia overall improving, FiO2 requirement down to 60%. To be supinated this morning. Would resume additional session of proning later today. D-dimer increased of 13.8. Currently on prophylactic Lovenox. Blood blood pressures were soft with paralytics, although not requiring pressors. Assess duplex ultrasound. Consider CTA PE protocol. Continue Decadron. Empirically on ceftriaxone. Received monoclonal antibody this morning at [facility] reportedly Completed remdesivir Hold baricitinib received 3 doses, 1 dose Actemra duoneb q6h, budesonide q12h empiric CTX Flutter valve/spirometer at bedside CTA chest negative for PE Full code Lovenox for DVT prophylaxis Status: Acute (2) Respiratory failure with hypoxia: Status: Acute (3) Acute respiratory distress syndrome: Status: Acute (4) Transaminitis: Mild. Monitor. Status: Acute Additional A&P Information Type 2 diabetes mellitus, moderate dose sliding scale, Lantus 20 every 12 Attestations Medical Necessity Statement*: Continuation versus management of hypoxic respite failure secondary to severe COVID-19. Coding Level of Care Code Acute Non Destructive Testing Specialist for Meagan Riley Diagnoses Pneumonia due to COVID-19 virus U07.1; J12.82 Respiratory failure with hypoxia J96.91 Acute respiratory distress syndrome J80 Transaminitis R74.01
--- NOTE | 2020-12-23 09:29 | USCV_ITS ---
Jeff Chahal Age: 60 Gender: M : 1960 Exam Date: 12/23/2020 11:23 Ordering Phys: Alfred Jarquin MD Technologist: Jailyn Hughes [place]am Location[place] [facility] [place]: BLE SWELLING, COVID PROCEDURES: Venous duplex imaging was performed in bilateral lower extremities. The following venous structures were evaluated: common femoral vein, profunda vein, proximal portion of the greater saphenous vein, superficial femoral vein, and the popliteal vein. In addition, the posterior tibial and peroneal trunk were evaluated. Serial compression, augmentation maneuvers, and spectral Doppler flow evaluation were performed. FINDINGS: Evidence of acute occlusive deep vein thrombosis in the left popliteal vein with abnormal flow dynamics. No additional DVT. CONCLUSIONS Acute left popliteal artery occlusive deep venous thrombosis. Remaining veins in the lower extremities are normal. Report given to patients nurse at time of exam. Dr. Iza Merino DO (Electronically Signed) Final Date: 23 December 2020 11:55 S
--- NOTE | 2020-12-23 10:54 | PC.NURSE ---
Patient supine at 1030 by 5 RN and 1 RT. No complications.
[2020-12-23 11:51] LABS: Glucose Point of Care 224 mg/dL (70-110)
--- NOTE | 2020-12-23 12:20 | PM.PN ---
Subjective Subjective: Interval history: The patient was seen and examined. He is intubated paralyzed and sedated. The patient is now in supine position. His FiO2 requirement has come down to 60%. DVT study revealed left popliteal vein DVT. Medications: Reviewed: Yes Vitals/I&O/Wt Last Vital Signs Temp 97.3 F L 12/23/20 07:30 Pulse 82 12/23/20 10:00 Resp 20 H 12/23/20 10:30 BP 105/67 12/23/20 10:30 Pulse Ox 100 12/23/20 10:30 12/22/20 12/23/20 12/23/20 22:59 06:59 14:59 Intake Total 345.430 / 851.962 6974.984 / 1551.685 298.971 / 298.971 Output Total 350 / 850 650 / 1500 Balance -4.570 / -472.299 523.984 / 51.685 298.971 / 298.971 Weight last 48 hrs Weight 194 lb Weight 194 lb 12.8 oz Physical Exam Narrative: EXAM NARRATIVE: General: Patient is intubated and sedated Neck: No JVD Respiratory: Auscultation: Reduced breath sound bilaterally, minimal crackles at lung bases Cardiovascular: Regular rate and rhythm, S1-S2 present, no murmur, no peripheral edema. Abdomen: Soft, nondistended, sluggish bowel sound Skin: No rash Neuro: Patient is intubated and sedated Urinary Catheter Management^: Sloan: Cath Placed During This Visit: yes Reason for Continuing Indwelling Catheter: Accurate Measurement of Urinary Output in Critically Ill Patients Urinary Catheter Date of Insertion: 12/22/20 Urinary Catheter Time of Insertion: 14:01 Data : 12/23/20 05:00 12/23/20 05:00 Micro: Microbiology 12/21/20 09:30 Gram Stain - Final Sputum - Expectorated Sputum Sputum Culture - Final 12/22/20 14:00 Gram Stain - Final Sputum - Endotracheal Tube Aspirate Sputum Culture - Preliminary Attestation for Other Data: I personally reviewed and interpreted the following: Other data: I reviewed the patient's laboratory, microbiologic and radiologic data A&P Assessment and plan (1) Acute respiratory distress syndrome: This is a 60-year-old gentleman with acute hypoxic respiratory failure secondary to SARS-CoV-2 pneumonia. The patient has severe COVID-19. The patient is currently intubated, mechanically ventilated, paralyzed and sedated. He is on volume control mechanical ventilation with lung protective strategy. His FiO2 requirement has come down to 60%. We'll proceed with a 2nd session of prone positioning today. Status: Acute (2) Pneumonia due to COVID-19 virus: The patient is currently on remdesivir, dexamethasone. The patient was on baricitinib. The patient had received a dose of Tocilizumab on December 20. The patient is on ceftriaxone. There is no evidence of secondary bacterial infection at this point. Status: Acute (3) DVT (deep venous thrombosis): The patient has acute occlusive DVT in the left popliteal vein. We'll start him on full dose anticoagulation. Status: Acute (4) Hyperglycemia: Blood sugar is better controlled. I am hoping the patient will continue to make recovery and hopefully get extubated in the next couple of days. Status: Acute Attestations Medical Necessity Statement*: Will defer to the primary team Coding Level of Care Code Acute Child & Adolescent Psychiatrist for Meagan Riley Diagnoses Acute respiratory distress syndrome J80 Pneumonia due to COVID-19 virus U07.1; J12.82 DVT (deep venous thrombosis) I82.409 Hyperglycemia R73.9 Time Spent (min) 33
[2020-12-23] MEDS: propofol 1,000 MG/100 ML INJ 21.21 MG IV ×2 (13:40→23:16)
[2020-12-23] MEDS: enoxaparin 100 mg/mL Syringe 90 MG SUBCUT (14:47)
[2020-12-23] MEDS: cisatracurium 100 MG in sodium chloride 0.9% 50 ML IV (16:27)
[2020-12-23 17:17] LABS: Glucose Point of Care 153 mg/dL (70-110)
[2020-12-23] MEDS: propofol 1,000 MG/100 ML INJ 15.91 MG IV (18:05)
--- NOTE | 2020-12-23 18:46 | PC.NURSE ---
Shift Note Frequent safety and comfort rounds continue. Orders and/or nursing care completed as indicated. Patient monitored for response to intervention and treatment(s). Education provided includes ventilator settings, drip titration, oral care, insulin, and proning education. Patient is ventilated, sedated, and unable to respond to teaching. Family verbalizes understanding of patient care.
[2020-12-23 20:12] LABS: Glucose Point of Care 170 mg/dL (70-110)
[2020-12-24] VITALS (104 sets, daily range): BP systolic 78–148; BP diastolic 48–85; PULSE 66–103; RESP 20–21; TEMP 36.5–36.7; O2SAT 87–94
[2020-12-24] MEDS: ipratropium-albuterol 3 mL Neb INHALATION ×4 (02:52→20:23)
[2020-12-24] MEDS: dexamethasone 4 mg/mL INJ 6 MG IVP (03:17)
[2020-12-24] MEDS: cefTRIAXone 1,000 MG in sodium chloride 0.9% (plus) 50 ML 100 MG IV (03:17)
[2020-12-24] MEDS: propofol 1,000 MG/100 ML INJ 21.21 MG IV ×5 (03:18→21:19)
[2020-12-24] MEDS: enoxaparin 100 mg/mL Syringe 90 MG SUBCUT ×2 (03:18→16:09)
[2020-12-24] MEDS: cisatracurium 100 MG in sodium chloride 0.9% 50 ML 9.54 MG IV (03:33)
[2020-12-24 06:08] LABS: Basophils # 0.1 10^3/uL (0.0-0.1); Basophils % 0.4 %; Eosinophils # 0.4 10^3/uL (0.0-0.8); Eosinophils % 3.6 %; Hematocrit 50.7 % (42.0-52.0); Hemoglobin 16.8 g/dL (11.7-16.6); Lymphocytes # 0.4 10^3/uL (0.8-4.8); Lymphocytes % 3.4 %; Mean Corpuscular HGB Conc 33.1 g/dL (30.0-36.0); Mean Corpuscular Hemoglobin 30.5 pg (28.0-34.0); Mean Corpuscular Volume 92.2 fl (80-94); Mean Platelet Volume 9.6 fL (7.4-10.4); Monocytes # 0.5 10^3/uL (0.2-0.9); Monocytes % 4.4 %; Neutrophils # 9.95 10^3/uL (1.8-7.7); Neutrophils % 83.5 %; Nucleated Red Blood Cells % 0 %; Platelet Count 399 10^3/cmm (130-400); Red Cell Distribution Width 12.2 % (12.1-15.1); White Blood Count 11.9 10^3/uL (4.0-10.0)
[2020-12-24 06:23] LABS: Alanine Aminotransferase 69 U/L (0-41); Albumin Level 3.4 g/dL (3.5-5.2); Alkaline Phosphatase 77 IU/L (40-130); Aspartate Amino Transferase 38 U/L (0-40); Blood Urea Nitrogen 37 mg/dL (8-23); Calcium 8.7 mg/dL (8.5-10.5); Carbon Dioxide 25 mmol/L (22-29); Chloride 98 mmol/L (98-107); Globulin 3.5 g/dL (1.3-4.6); Glomerular Filtration Rate 114.3 mL/min (90-130); Glucose 207 mg/dL (65-115); Magnesium 2.3 mg/dL (1.7-2.3); NT Pro B Type Natriuretic Pept 32 pg/mL (0-125); Osmolality Calculated 293 mOsm/kg (285-295); Sodium 134 mmol/L (136-145); Total Bilirubin 0.5 mg/dL (0.15-1.2); Total Protein 6.9 g/dL (6.6-8.7)
[2020-12-24 06:29] LABS: Anion Gap 16.7 (5-19); Potassium 5.7 mmol/L (3.5-5.1)
--- NOTE | 2020-12-24 06:30 | PC.NURSE ---
Shift Note Uneventful shift. Patient proned at 2030 with RN, RT. Tolerated well. UOP scant, will update hospitalist during rounds. Afebrile. VSS. TOF not completed, but vent synchrony achieved. Frequent safety and comfort rounds continue. Orders and/or nursing care completed as indicated. Patient monitored for response to intervention and treatment(s). Education provided includes ventilator protocol, proning, plan of care. Patient and/or hospital sales representative sedated, intubated, paralyzed. Will continue to monitor.
[2020-12-24 07:43] LABS: Glucose Point of Care 236 mg/dL (70-110)
[2020-12-24] MEDS: pantoprazole DR 40 mg Tablet PO (08:02)
[2020-12-24] MEDS: insulin glargine 100 units/1 mL 20 UNIT SUBCUT ×2 (08:08→21:04)
[2020-12-24] MEDS: budesonide 0.5 mg/2 mL Neb INHALATION ×2 (08:09→20:23)
[2020-12-24] MEDS: insulin lispro 100 unit/1 mL SUBCUT ×4 (08:20→21:03)
[2020-12-24 08:52] LABS: Creatine Phosphokinase 295 U/L (39-308)
--- NOTE | 2020-12-24 10:13 | PC.CHAP ---
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 purifying plant operator visit [] Patient/Family/Request visit [] Outpatient visit [] Follow-up visit [] Physician referral [] Code/Alert [x] Routine visit [] Staff referral [] Actively dying [] Patient sleeping [] Family support [] [] Out of room [] Palliative care [] [] Receiving care in room [] Pre-surgical visit [] Trauma [] Long length of stay [x] ICU visit [x] Other: patient now on tummy ... covid Relational/Emotional Strength [] Patient feels connected with others/family/visitors/staff [] Distress [] Loneliness/isolation [] Abandonment Spirituality of Patient [] Person of Elvia [] Attends Rastafari of their Elvia [] Believes in Prayer [] Reads Bible or Buddhism materials [] There are Spiritual issues to be addressed Lead Fire Protection Engineer Interventions [x] Prayer [x] Active listening [x] Non-anxious presence [x] Spiritual/emotional support [] Crisis/trauma care [] Spiritual counseling [] Bereavement support [] Provided bereavement packet [] Provided Bible/devotional materials [] Provided toy/stuffed animal, coloring book to patient or family member [] Provided Communion [] Anointing/[place] [] Salvation [x] Completed spiritual assessment [] Other: Impact on Illness or Injury [] Angry [] Fearful [] Anxious [] Often cries [] Exhaustion [] Unable to work [] Unable to attend catholic [] Unable to walk/stand [] Unable to read [] Unable to drive [] Unable to eat/drink [] Unable to sleep [] Unable to be with family [] Patient intubated [] Other: Summary Time spent with patient
--- NOTE | 2020-12-24 10:49 | PM.PN ---
Subjective Subjective: Interval history: Intubated, sedated, paralyzed. Vitals/I&O/Wt Last Vital Signs Temp 97.8 F 12/24/20 04:00 Pulse 91 12/24/20 10:00 Resp 20 H 12/24/20 09:14 BP 121/73 12/24/20 10:00 Pulse Ox 92 12/24/20 10:00 12/23/20 12/24/20 12/24/20 22:59 06:59 14:59 Intake Total 152.550 / 569.233 4613.665 / 1905.115 89.789 / 89.789 Output Total 550 / 550 200 / 750 Balance -397.450 / 291.513 1466.665 / 1155.115 89.789 / 89.789 Weight last 48 hrs Weight 87.997 kg Weight 87.997 kg Physical Exam Const: COMMON NORMALS: no acute distress and alert GENERAL APPEARANCE: patient mechanically ventilated ORIENTATION/CONSCIOUSNESS: Yes awake OTHER: Prone, sedated, paralyzed. HENMT: COMMON NORMALS: oropharynx normal Neck/C-Spine: COMMON NORMALS: no JVD Resp: COMMON NORMALS: normal respiratory effort and clear to auscultation bilaterally AUSCULTATION: clear to auscultation bilaterally Cardio: COMMON NORMALS: no JVD, regular rhythm, S1 normal heart sound present, S2 normal heart sound present and No murmurs present (Cardio) RHYTHM: regular rhythm HEART SOUNDS: S1 normal heart sound present and S2 normal heart sound present GI: COMMON NORMALS: Normal to inspection, nondistended, normoactive bowel sounds present, Soft to palpation and non-tender PALPATION: Yes Soft to palpation Extremity: COMMON NORMALS: no joint enlargement and no pedal edema Neuro: COMMON NORMALS: moves all extremities SENSORIUM/ORIENTATION: Yes alert Skin: COMMON NORMALS: no rashes or lesions noted GENERAL SKIN EXAM: no rashes or lesions noted Urinary Catheter Management^: Sloan: Cath Placed During This Visit: yes Reason for Continuing Indwelling Catheter: Accurate Measurement of Urinary Output in Critically Ill Patients Urinary Catheter Date of Insertion: 12/22/20 Urinary Catheter Time of Insertion: 14:01 Data : 12/24/20 04:55 12/24/20 04:55 Micro: Microbiology 12/21/20 09:30 Gram Stain - Final Sputum - Expectorated Sputum Sputum Culture - Final 12/22/20 14:00 Gram Stain - Final Sputum - Endotracheal Tube Aspirate Sputum Culture - Preliminary A&P Assessment and plan (1) Pneumonia due to COVID-19 virus: To be turned over to supine position today at 1230. Oxygenation so far has been doing better, down to 40% FiO2. Maintain supine subsequently, wean down paralytics, wean down sedation and will monitor to see that he is able to maintain oxygenation. Continue Decadron. Empirically on ceftriaxone. Anticoagulation for DVT. Received monoclonal antibody this morning at [facility] reportedly Completed remdesivir Hold baricitinib received 3 doses, 1 dose Actemra duoneb q6h, budesonide q12h empiric CTX Flutter valve/spirometer at bedside CTA chest negative for PE Full code Lovenox for DVT prophylaxis Status: Acute (2) Respiratory failure with hypoxia: Status: Acute (3) Acute respiratory distress syndrome: Status: Acute (4) Transaminitis: Mild. Monitor. Status: Acute (5) DVT (deep venous thrombosis): Therapeutic Lovenox. Status: Acute Additional A&P Information Type 2 diabetes mellitus, moderate dose sliding scale, Lantus 20 every 12 Attestations Medical Necessity Statement*: Continue admission for assessment management of hypoxic respiratory failure with severe COVID-19. Critical Care Time: In addition to noncritical issues, 40 minutes critical care time spent on assessment management of immediately life-threatening issues secondary respiratory failure, mechanical ventilator support, requiring paralytics, sedatives, assessment of oxygenation, readiness for weaning support. Coding Level of Care Code Acute Reeling Machine Setup Operator for [facility] Fwd Diagnoses Pneumonia due to COVID-19 virus U07.1; J12.82 Respiratory failure with hypoxia J96.91 Acute respiratory distress syndrome J80 Transaminitis R74.01 DVT (deep venous thrombosis) I82.409
[2020-12-24 11:10] LABS: Glucose Point of Care 248 mg/dL (70-110)
--- NOTE | 2020-12-24 12:02 | PC.NURSE ---
Continuous glucose monitor Pt's dexcom G6 was removed from his stomach and the transmitter was labeled and placed in a baggie in the pt's chart.
--- NOTE | 2020-12-24 13:48 | PC.NURSE ---
Patient supine at 1300. Assisted by 3 RN 2 Students and 1RT. No complications.
--- NOTE | 2020-12-24 15:34 | PC.NURSE ---
Facial Abrasion: Right orbital edema present with blistering and abrasion of right zygomatic region of the buccal. RT notified and replacement of the tube tamer with dressings completed by RT.
[2020-12-24 15:38] LABS: Potassium 6.3 mmol/L (3.5-5.1)
[2020-12-24 16:53] LABS: Glucose Point of Care 245 mg/dL (70-110)
--- NOTE | 2020-12-24 18:58 | PC.NURSE ---
Shift Note Frequent safety and comfort rounds continue. Orders and/or nursing care completed as indicated. Patient monitored for response to intervention and treatment(s). Education provided includes ventilator support, medication education, importance of range of motion activity. Patient sedated, ventilated, unable to comprehend education. Patient supined at 1300. No urine output at that time. Catheter checked for kinks and repositioned. 1735 Irrigation administered and 1000ml of dark- tea colored urine output noted.
[2020-12-24 20:22] LABS: Blood Urea Nitrogen 55 mg/dL (8-23); Carbon Dioxide 26 mmol/L (22-29); Chloride 94 mmol/L (98-107); Glucose 221 mg/dL (65-115); Osmolality Calculated 292 mOsm/kg (285-295); Sodium 130 mmol/L (136-145)
[2020-12-24 20:23] LABS: Anion Gap 15.6 (5-19); Potassium 5.6 mmol/L (3.5-5.1)
[2020-12-24 21:03] LABS: Glucose Point of Care 225 mg/dL (70-110)
[2020-12-25] VITALS (64 sets, daily range): BP systolic 70–132; BP diastolic 46–80; PULSE 71–97; RESP 20–24; TEMP 36.5–37; O2SAT 81–97
[2020-12-25] MEDS: propofol 1,000 MG/100 ML INJ 21.21 MG IV ×3 (02:17→11:42)
--- NOTE | 2020-12-25 02:30 | PC.NURSE ---
Noticed dark sediment in patient's sarabia catheter. Irrigated with 30cc's of NS, immediate large return in uop per sarabia. Will continue to irrigate q2-4h as needed.
[2020-12-25] MEDS: ipratropium-albuterol 3 mL Neb INHALATION ×4 (03:07→20:00)
[2020-12-25] MEDS: cefTRIAXone 1,000 MG in sodium chloride 0.9% (plus) 50 ML 100 MG IV (03:33)
[2020-12-25] MEDS: enoxaparin 100 mg/mL Syringe 90 MG SUBCUT ×2 (03:33→15:25)
[2020-12-25] MEDS: dexamethasone 4 mg/mL INJ 6 MG IVP (03:33)
[2020-12-25 04:58] LABS: ABG PCO2 53.7 mmHg (35-45); ABG PH Result 7.32 (7.35-7.45); Arterial Blood Gas Hematocrit 51.8 % (42-52); Base Excess ABG 0.5 mmol/L (-2.0-2.0); Blood Gas Operator Identificat HARKR; Blood Gas Sample Site Brachial, right; Blood Gas Sample Type Arterial; Blood Gas Tidal Volume 0.42; HCO3 ABG 27.9 mmol/L (22-26); Oxygen Device VENT; PO2 ABG 66.2 mmHg (80.0-100.0)
[2020-12-25] MEDS: sodium chloride 0.9% 250 ML IV (05:32)
[2020-12-25 05:42] LABS: Basophils # 0.1 10^3/uL (0.0-0.1); Basophils % 0.5 %; Eosinophils # 0.4 10^3/uL (0.0-0.8); Eosinophils % 2.9 %; Hemoglobin 16.3 g/dL (11.7-16.6); Lymphocytes # 0.6 10^3/uL (0.8-4.8); Mean Corpuscular HGB Conc 32.6 g/dL (30.0-36.0); Mean Corpuscular Hemoglobin 30.2 pg (28.0-34.0); Mean Corpuscular Volume 92.8 fl (80-94); Mean Platelet Volume 9.5 fL (7.4-10.4); Monocytes # 0.7 10^3/uL (0.2-0.9); Neutrophils # 11.75 10^3/uL (1.8-7.7); Neutrophils % 83.7 %; Nucleated Red Blood Cells % 0 %; Platelet Count 387 10^3/cmm (130-400); Red Blood Count 5.39 10^6/uL (4.1-5.3); Red Cell Distribution Width 12.3 % (12.1-15.1)
--- NOTE | 2020-12-25 06:00 | XR_ITS ---
WS: [id number] Exam: XR chest 1V portable [id number] Date/Time of Exam: 12/25/2020 4:58 AM Reason For Exam: Hypoxia Comparison 12/23/2020. Residual diffuse interstitial infiltrates are seen in the bilateral lower lung zones. No significant change. Heart size is normal. ET tube remains in satisfactory position ending about 6 cm above the ca viviana. An enteric tube extends below the diaphragm but the tip is not visible. A left-sided IJ central line ends in the lower one third of the SVC. The lungs are fully inflated. The mediastinum and osseo us thorax are unremarkable. XR/XR chest 1V portable [id number] IMPRESSION: 1. Residual diffuse interstitial infiltrates in the bilateral lower lung zones are unchanged. 2. ET tube and central line both appear to be in satisfactory position. Enteric tube extends below the diaphragm but the tip is not visible.
[2020-12-25 06:17] LABS: Alanine Aminotransferase 78 U/L (0-41); Albumin Level 3.5 g/dL (3.5-5.2); Alkaline Phosphatase 76 IU/L (40-130); Anion Gap 15.5 (5-19); Aspartate Amino Transferase 40 U/L (0-40); Blood Urea Nitrogen 65 mg/dL (8-23); Carbon Dioxide 26 mmol/L (22-29); Chloride 97 mmol/L (98-107); Glomerular Filtration Rate 51.4 mL/min (90-130); Glucose 191 mg/dL (65-115); Osmolality Calculated 300 mOsm/kg (285-295); Potassium 5.5 mmol/L (3.5-5.1); Sodium 133 mmol/L (136-145); Total Bilirubin 0.5 mg/dL (0.15-1.2); Total Protein 6.5 g/dL (6.6-8.7)
[2020-12-25 08:12] LABS: Glucose Point of Care 258 mg/dL (70-110)
--- NOTE | 2020-12-25 08:35 | P.PN_ITS ---
Subjective Subjective: Interval history: Intubated, sedated, semiawake, turns his head to voice, does not follow commands. Does not answer questions. On occasion tachypneic up to 26 bpm. Vitals/I&O/Wt Last Vital Signs Temp 97.7 F 12/25/20 04:00 Pulse 84 12/25/20 06:00 Resp 20 H 12/25/20 06:00 BP 80/60 12/25/20 06:00 Pulse Ox 92 12/25/20 06:00 12/24/20 12/25/20 12/25/20 22:59 06:59 14:59 Intake Total 281.659 / 9901.177 2453.493 / 2425.911 Output Total 0 / 400 650 / 1050 Balance 281.659 / 964.418 411.493 / 1375.911 Weight last 48 hrs Weight 87.997 kg Weight 87.997 kg Physical Exam Const: COMMON NORMALS: no acute distress and alert GENERAL APPEARANCE: patient mechanically ventilated ORIENTATION/CONSCIOUSNESS: Yes awake OTHER: Sedated HENMT: COMMON NORMALS: oropharynx normal Neck/C-Spine: COMMON NORMALS: no JVD Resp: COMMON NORMALS: normal respiratory effort and clear to auscultation bilaterally AUSCULTATION: clear to auscultation bilaterally Cardio: COMMON NORMALS: no JVD, regular rhythm, S1 normal heart sound present, S2 normal heart sound present and No murmurs present (Cardio) RHYTHM: regular rhythm HEART SOUNDS: S1 normal heart sound present and S2 normal heart sound present GI: COMMON NORMALS: Normal to inspection, nondistended, normoactive bowel sounds present, Soft to palpation and non-tender PALPATION: Yes Soft to palpation Extremity: COMMON NORMALS: no joint enlargement and no pedal edema Neuro: COMMON NORMALS: moves all extremities SENSORIUM/ORIENTATION: Yes alert Skin: COMMON NORMALS: no rashes or lesions noted GENERAL SKIN EXAM: no rashes or lesions noted Urinary Catheter Management^: Sloan: Cath Placed During This Visit: yes Reason for Continuing Indwelling Catheter: Accurate Measurement of Urinary Output in Critically Ill Patients Urinary Catheter Date of Insertion: 12/22/20 Urinary Catheter Time of Insertion: 14:01 Data : 12/25/20 05:00 12/25/20 05:00 Micro: Microbiology 12/22/20 14:00 Gram Stain - Final Sputum - Endotracheal Tube Aspirate Sputum Culture - Final A&P Assessment and plan (1) Pneumonia due to COVID-19 virus: This morning increased leukocytosis of 14, hypotensive, blood pressure recorded down as low as 70/55. So far not requiring resumption of Levophed. Chest x-ray repeated, pending, to me it did not appear to have new obvious consolidation, however, with some clinical worsening broadening his antibiotic coverage per stop ceftriaxone, switch to cefepime plus vancomycin. Monitor oxygenation, currently on 55% FiO2. For now not proning again just yet, but if worsening further may need additional session of proning. Increasing sedation backup due to tachypnea. Start tube feeds. Water flushes. Requesting urine culture as well. Is a Sloan found obstructing not draining well. Unfortunately bladder scanner has been out of commission, but did not flush well, so Sloan was exchanged. Continue Decadron. Empirically on ceftriaxone. Anticoagulation for DVT. Received monoclonal antibody this morning at [facility] reportedly Completed remdesivir Hold baricitinib received 3 doses, 1 dose Actemra duoneb q6h, budesonide q12h CTA chest negative for PE Full code Therapeutic Lovenox for DVT Status: Acute (2) Respiratory failure with hypoxia: Status: Acute (3) Acute respiratory distress syndrome: Status: Acute (4) Transaminitis: Mild. Monitor. Status: Acute (5) DVT (deep venous thrombosis): Therapeutic Lovenox. Status: Acute (6) JAY (acute kidney injury): Acute kidney injury, creatinine up to 1.65 stable but better at 1.4. BUN increased today possibly secondary to episode of hypotension this morning. Possibly post renal acute kidney injury given Sloan found obstructed yesterday. Bladder scan out of commission, but urine output was lackluster and Sloan not flushing, not obstructed, so was exchanged. Hyperkalemia noted on 12/24 appears to be improving. Recheck potassium later today. Continue to monitor Sloan for good output. Urine culture requested due to sediment, increase in leukocytosis. Status: Acute Additional A&P Information Type 2 diabetes mellitus, moderate dose sliding scale, Lantus 20 every 12 Attestations Medical Necessity Statement*: Continue admission for hypoxic respite failure secondary to severe COVID-19. Coding Level of Care Code Acute Shower Screen Installer for Chg Fwd Exam Comprehensive Diagnoses Pneumonia due to COVID-19 virus U07.1; J12.82 Respiratory failure with hypoxia J96.91 Acute respiratory distress syndrome J80 Transaminitis R74.01 DVT (deep venous thrombosis) I82.409 JAY (acute kidney injury) N17.9
[2020-12-25] MEDS: budesonide 0.5 mg/2 mL Neb INHALATION ×2 (08:38→20:00)
[2020-12-25] MEDS: insulin glargine 100 units/1 mL 20 UNIT SUBCUT ×2 (08:58→19:53)
[2020-12-25] MEDS: insulin lispro 100 unit/1 mL SUBCUT ×4 (08:59→20:00)
[2020-12-25] MEDS: pantoprazole DR 40 mg Tablet PO (08:59)
[2020-12-25] MEDS: cefepime 1,000 MG in sodium chloride 0.9% (plus) 50 ML 100 MG IV ×2 (09:00→22:03)
--- NOTE | 2020-12-25 10:13 | PC.CHAP ---
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 network operations manager visit [] Patient/Family/Request visit [] Outpatient visit [] Follow-up visit [] Physician referral [] Code/Alert [x] Routine visit [] Staff referral [] Actively dying [x] Patient sleeping [] Family support [] [] Out of room [] Palliative care [] [] Receiving care in room [] Pre-surgical visit [] Trauma [] Long length of stay [x] ICU visit [x] Other: covid Relational/Emotional Strength [] Patient feels connected with others/family/visitors/staff [] Distress [] Loneliness/isolation [] Abandonment Spirituality of Patient [] Person of Elvia [] Attends Baptist of their Elvia [] Believes in Prayer [] Reads Bible or Voodoo materials [] There are Spiritual issues to be addressed Ditch Digger Interventions [x] Prayer [] Active listening [] Non-anxious presence [] Spiritual/emotional support [] Crisis/trauma care [] Spiritual counseling [] Bereavement support [] Provided bereavement packet [] Provided Bible/devotional materials [] Provided toy/stuffed animal, coloring book to patient or family member [] Provided Communion [] Anointing/[place] [] Salvation [x] Completed spiritual assessment [] Other: Impact on Illness or Injury [] Angry [] Fearful [] Anxious [] Often cries [] Exhaustion [] Unable to work [] Unable to attend methodist [] Unable to walk/stand [] Unable to read [] Unable to drive [] Unable to eat/drink [] Unable to sleep [] Unable to be with family [] Patient intubated [] Other: Summary Time spent with patient
[2020-12-25] MEDS: vancomycin 1,500 MG/300 ML PIGGYBACK 200 MG IV (10:27)
[2020-12-25] MEDS: rocuronium 10 mg/mL INJ 5mL 50 MG IVP (10:47)
--- NOTE | 2020-12-25 10:49 | XR_ITS ---
WS: [id number] Exam: XR chest 1V portable [id number] Date/Time of Exam: 12/25/2020 11:07 AM Reason For Exam: re-intubation Comparison made with the earlier study performed on the same day at 0512 hours. Residual infiltrates in the lower lung zones show little change. Heart size remains normal. An ET tub e is in place ending about 6 cm above the jun in good position. A left-sided central line appears to end in the lower one third of the SVC. An enteric tube ends in the stomach. The mediastinum is not widened. Regional bony structures are intact. XR/XR chest 1V portable [id number] IMPRESSION: 1. ET tube in satisfactory position. 2. Infiltrates in the lower lung zones are unchanged. 3. Enteric tube and left-sided central line in satisfactory position.
--- NOTE | 2020-12-25 11:22 | PC.NURSE ---
extubated Patient accidentally extubated while repositioning in bed. ETT and OG completely removed from mouth, suctioned mouth and airway. BMV used with 15L, sats remained in mid 90s. Dr. Jarquin and RT staff called STAT. Patient reintubated without difficulty at [address] Jarquin. 10 mg IVP Etomidate and 50 IVP Rocuronium. OG tube replaced. CXR ordered.
[2020-12-25 11:33] LABS: Glucose Point of Care 270 mg/dL (70-110)
[2020-12-25 14:55] LABS: Potassium 5.5 mmol/L (3.5-5.1)
[2020-12-25] MEDS: propofol 1,000 MG/100 ML INJ 26.51 MG IV (15:25)
--- NOTE | 2020-12-25 16:07 | PM.PN ---
Subjective Subjective: Interval history: The patient was seen and examined. He is intubated and sedated. This morning the patient had accidental extubation and was reintubated again. Following intubation the oxygen requirement was up to 65% now with coming down on the FiO2. The post intubation x-ray revealed questionable subsegmental atelectasis involving the right lower lobe. His antibiotic coverage was broadened. Bedside ultrasound revealed normal IVC without any significant dilation. Medications: Reviewed: Yes Vitals/I&O/Wt Last Vital Signs Temp 98.5 F 12/25/20 15:43 Pulse 76 12/25/20 15:43 Resp 20 H 12/25/20 15:43 BP 90/71 12/25/20 15:43 Pulse Ox 90 12/25/20 15:43 12/25/20 12/25/20 12/25/20 06:59 14:59 22:59 Intake Total 1061.493 / 2425.911 280.000 / 280.000 78.831 / 358.831 Output Total 650 / 1050 1400 / 1400 Balance 411.493 / 1375.911 280.000 / 280.000 -1321.169 / -1041.169 Weight last 48 hrs Weight 194 lb Weight 194 lb Physical Exam Narrative: EXAM NARRATIVE: General: Patient is intubated and sedated Neck: No JVD Respiratory: Auscultation: Reduced breath sound bilaterally, minimal crackles at lung bases Cardiovascular: Regular rate and rhythm, S1-S2 present, no murmur, no peripheral edema. Abdomen: Soft, nondistended, sluggish bowel sound Skin: No rash Neuro: Patient is intubated and sedated Urinary Catheter Management^: Sloan: Cath Placed During This Visit: yes Reason for Continuing Indwelling Catheter: Accurate Measurement of Urinary Output in Critically Ill Patients Urinary Catheter Date of Insertion: 12/22/20 Urinary Catheter Time of Insertion: 14:01 Data : 12/25/20 05:00 12/25/20 14:22 Micro: Microbiology 12/22/20 14:00 Gram Stain - Final Sputum - Endotracheal Tube Aspirate Sputum Culture - Final Attestation for Other Data: I personally reviewed and interpreted the following: Other data: I have reviewed the patient's laboratory, microbiologic and radiologic data. Please see the HPI for radiologic detail. A&P Assessment and plan (1) Acute respiratory distress syndrome: This is a 60-year-old gentleman with acute hypoxic respiratory failure secondary to SARS-CoV-2 pneumonia. The patient has severe COVID-19. The patient had been progressively getting better. His FiO2 requirement yesterday was approximately 45%. The patient was not proned yesterday. He was taken off of paralytics. Currently the patient is on 60% FiO2 which I think will be able to go down on. Patient had accidental extubation on 1027. Bedside ultrasound did not reveal any evidence of fluid overload. Status: Acute (2) Pneumonia due to COVID-19 virus: The patient is currently on remdesivir, dexamethasone. The patient was on baricitinib. The patient had received a dose of Tocilizumab on December 20. Patient is currently on vancomycin and cefepime. Status: Acute (3) DVT (deep venous thrombosis): The patient has acute occlusive DVT in the left popliteal vein. We'll start him on full dose anticoagulation. Status: Acute (4) Hyperglycemia: Blood sugar is better controlled. Status: Acute (5) Acute kidney injury: Likely multifactorial. Patient also has mild hyperkalemia. Will manage conservatively. Status: Acute Attestations Medical Necessity Statement*: Will defer to the primary team Coding Level of Care Code Acute Assistant County Engineer for kari Lin Diagnoses Acute respiratory distress syndrome J80 Pneumonia due to COVID-19 virus U07.1; J12.82 DVT (deep venous thrombosis) I82.409 Hyperglycemia R73.9 Acute kidney injury N17.9 Time Spent (min) 33
[2020-12-25 17:20] LABS: Triglycerides 796 mg/dL (0-150)
[2020-12-25 17:40] LABS: Glucose Point of Care 261 mg/dL (70-110)
[2020-12-25 18:01] LABS: LDL Cholesterol Direct 35 mg/dL (0-100)
[2020-12-25] MEDS: propofol 1,000 MG/100 ML INJ 15.91 MG IV (20:01)
[2020-12-25 20:29] LABS: Glucose Point of Care 216 mg/dL (70-110)
--- NOTE | 2020-12-25 22:24 | PM.ACPR ---
Procedure/Consent Consent: Consent for Procedure: Emergency procedure Procedure Narrative: Emergent re-intubation upon inadvertent ETT dislodgement this morning. Acute Procedures Intubation: Sedative: etomidate Mg given: 10 Paralytic: rocuronium Mg given: 50 Laryngoscope: fiber optic video scope Assist device used: fiber optic device ET tube size: 8 Tube secured depth (cm): 25 Tube secured location: lips Tube placement confirmation: visualized tube passing through cords, equal breath sounds bilaterally and confirmation by capnometry (ETCO2 35) Patient tolerated procedure: well Intubation complications: none
[2020-12-26] VITALS (40 sets, daily range): BP systolic 85–125; BP diastolic 54–82; PULSE 51–114; RESP 16–24; TEMP 36.8–38.5; O2SAT 90–97
[2020-12-26] MEDS: propofol 1,000 MG/100 ML INJ 18.56 MG IV (01:42)
[2020-12-26] MEDS: ipratropium-albuterol 3 mL Neb INHALATION ×4 (02:52→20:07)
[2020-12-26] MEDS: vancomycin 1,500 MG/300 ML PIGGYBACK 200 MG IV ×2 (03:33→21:58)
[2020-12-26] MEDS: dexamethasone 4 mg/mL INJ 6 MG IVP (03:34)
[2020-12-26] MEDS: enoxaparin 100 mg/mL Syringe 90 MG SUBCUT ×2 (03:34→15:10)
[2020-12-26 04:04] LABS: ABG PCO2 48.6 mmHg (35-45); ABG PH Result 7.39 (7.35-7.45); Arterial Blood Gas Hematocrit 51.9 % (42-52); Base Excess ABG 3.3 mmol/L (-2.0-2.0); Blood Gas Allen Test Pos; Blood Gas Sample Site Radial, right; Blood Gas Sample Type Arterial; Blood Gas Tidal Volume 0.45; HCO3 ABG 29.4 mmol/L (22-26); Oxygen Device VENT; PO2 ABG 61.4 mmHg (80.0-100.0)
[2020-12-26 05:20] LABS: Basophils # 0.1 10^3/uL (0.0-0.1); Basophils % 0.6 %; Eosinophils # 0.3 10^3/uL (0.0-0.8); Eosinophils % 1.6 %; Hemoglobin 15.8 g/dL (11.7-16.6); Lymphocytes # 0.6 10^3/uL (0.8-4.8); Mean Corpuscular HGB Conc 32.2 g/dL (30.0-36.0); Mean Corpuscular Hemoglobin 30.4 pg (28.0-34.0); Mean Corpuscular Volume 94.4 fl (80-94); Mean Platelet Volume 9.5 fL (7.4-10.4); Monocytes # 0.5 10^3/uL (0.2-0.9); Monocytes % 2.9 %; Neutrophils # 16.57 10^3/uL (1.8-7.7); Neutrophils % 90.3 %; Nucleated Red Blood Cells % 0 %; Platelet Count 368 10^3/cmm (130-400); Red Blood Count 5.19 10^6/uL (4.1-5.3); Red Cell Distribution Width 12.5 % (12.1-15.1); White Blood Count 18.4 10^3/uL (4.0-10.0)
[2020-12-26 05:43] LABS: Alanine Aminotransferase 67 U/L (0-41); Albumin Level 3.4 g/dL (3.5-5.2); Alkaline Phosphatase 73 IU/L (40-130); Anion Gap 15.8 (5-19); Aspartate Amino Transferase 27 U/L (0-40); Blood Urea Nitrogen 57 mg/dL (8-23); Calcium 9.2 mg/dL (8.5-10.5); Carbon Dioxide 26 mmol/L (22-29); Chloride 103 mmol/L (98-107); Globulin 2.8 g/dL (1.3-4.6); Glomerular Filtration Rate 114.3 mL/min (90-130); Glucose 262 mg/dL (65-115); Osmolality Calculated 315 mOsm/kg (285-295); Potassium 4.8 mmol/L (3.5-5.1); Sodium 140 mmol/L (136-145); Total Bilirubin 0.5 mg/dL (0.15-1.2); Total Protein 6.2 g/dL (6.6-8.7)
[2020-12-26 07:45] LABS: Glucose Point of Care 292 mg/dL (70-110)
[2020-12-26] MEDS: insulin glargine 100 units/1 mL 20 UNIT SUBCUT (08:05)
[2020-12-26] MEDS: insulin lispro 100 unit/1 mL SUBCUT ×4 (08:05→20:17)
[2020-12-26] MEDS: pantoprazole DR 40 mg Tablet PO (08:06)
[2020-12-26] MEDS: budesonide 0.5 mg/2 mL Neb INHALATION ×2 (08:25→20:07)
[2020-12-26] MEDS: acetaminophen 325 mg Tablet 650 MG PO ×2 (08:48→19:23)
--- NOTE | 2020-12-26 08:55 | PM.PN ---
Subjective Subjective: Interval history: Sedated, mechanically ventilated. Vitals/I&O/Wt Last Vital Signs Temp 100.0 F H 12/26/20 08:38 Pulse 81 12/26/20 08:38 Resp 20 H 12/26/20 08:36 BP 125/75 12/26/20 08:00 Pulse Ox 91 12/26/20 08:36 12/25/20 12/26/20 12/26/20 22:59 06:59 14:59 Intake Total 827.128 / 1107.128 658.876 / 1766.004 80 / 80 Output Total 1800 / 1800 400 / 2200 Balance -972.872 / -692.872 258.876 / -433.996 80 / 80 Weight last 48 hrs Weight 90.492 kg Weight 87.997 kg Physical Exam Const: COMMON NORMALS: no acute distress and alert GENERAL APPEARANCE: patient mechanically ventilated ORIENTATION/CONSCIOUSNESS: Yes awake OTHER: Sedated HENMT: COMMON NORMALS: oropharynx normal Neck/C-Spine: COMMON NORMALS: no JVD Resp: COMMON NORMALS: normal respiratory effort and clear to auscultation bilaterally AUSCULTATION: clear to auscultation bilaterally Cardio: COMMON NORMALS: no JVD, regular rhythm, S1 normal heart sound present, S2 normal heart sound present and No murmurs present (Cardio) RHYTHM: regular rhythm HEART SOUNDS: S1 normal heart sound present and S2 normal heart sound present GI: COMMON NORMALS: Normal to inspection, nondistended, normoactive bowel sounds present, Soft to palpation and non-tender PALPATION: Yes Soft to palpation OTHER: L superolateral of umbilicus soft tissue lump above 3 x 5 cm, present previously Extremity: COMMON NORMALS: no joint enlargement and no pedal edema Neuro: COMMON NORMALS: moves all extremities SENSORIUM/ORIENTATION: Yes alert Skin: COMMON NORMALS: no rashes or lesions noted GENERAL SKIN EXAM: no rashes or lesions noted Urinary Catheter Management^: Sloan: Cath Placed During This Visit: yes Reason for Continuing Indwelling Catheter: Accurate Measurement of Urinary Output in Critically Ill Patients Urinary Catheter Date of Insertion: 12/22/20 Urinary Catheter Time of Insertion: 14:01 Data : 12/26/20 04:56 12/26/20 04:56 Micro: Microbiology 12/25/20 12:40 Urine Culture - Preliminary Urine Catheterized A&P Assessment and plan (1) Pneumonia due to COVID-19 virus: Some worsening in oxygenation overnight. FiO2 requirement of 65%. This morning low-grade fever 100. Renal function continues to improve after Sloan replaced. Yesterday morning had to be reintubated after inadvertent dislodgment of the ET tube. Possibly the changes we are seeing may be due to nasopharyngeal secretions/pneumonitis. At this time continue cefepime and vancomycin. Additional sputum cultures ordered. If oxygenation worsening, ventilator dyssynchrony, may need additional paralysis and proning. Start tube feeds. Water flushes. Continue Decadron. Empirically on ceftriaxone. Anticoagulation for DVT. Received monoclonal antibody this morning at [facility] reportedly Completed remdesivir Hold baricitinib received 3 doses, 1 dose Actemra duoneb q6h, budesonide q12h CTA chest negative for PE Therapeutic Lovenox for DVT Urine culture without growth so far. Sloan exchanged on 11/24. Could not reach sister for update. Status: Acute (2) Respiratory failure with hypoxia: Status: Acute (3) Acute respiratory distress syndrome: Status: Acute (4) Transaminitis: Mild. Monitor. Status: Acute (5) DVT (deep venous thrombosis): Therapeutic Lovenox. Status: Acute (6) JAY (acute kidney injury): Renal function improving. Creatinine normalized. BUN improving. Hyperkalemia resolved. Sloan noted with partial obstruction, exchanged on 12/24. Status: Acute Additional A&P Information Type 2 diabetes mellitus, moderate dose sliding scale, increase Lantus 22 every 12 Periumbilical lump: Soft tissue ultrasound requested. Attestations Medical Necessity Statement*: Continue admission for assessment of management of hypoxic respite failure requiring mechanical ventilatory support. Coding Level of Care Code Acute Manager Supplier for [facility] Fwd Diagnoses Pneumonia due to COVID-19 virus U07.1; J12.82 Respiratory failure with hypoxia J96.91 Acute respiratory distress syndrome J80 Transaminitis R74.01 DVT (deep venous thrombosis) I82.409 JAY (acute kidney injury) N17.9
--- NOTE | 2020-12-26 08:58 | US_ITS ---
WS: [id number] ULTRASOUND SOFT TISSUES mid abdominal wall. HISTORY: soft tissue lump 2 o'clock from umbilicus COMPARISON: None available. TECHNIQUE: 2-D and color Doppler imaging is submitted. Ultrasound is directed to the area of interest in the mid abdominal wall just to the LEFT of midline. There is an area of dirty shadowing in the LEFT upper abdomen. Area of shadowing is just beneath the subcutaneous soft tissue layer. US/US soft tissue/extremity [id number] IMPRESSION: Suspect abdominal wall hernia in the LEFT upper abdomen. No evidence for incarc eration on this ultrasound evaluation. For further evaluation CT of the abdomen and pelvis can be obtained.
--- NOTE | 2020-12-26 09:14 | XR_ITS ---
WS: [id number] Exam: XR chest 1V [id number] Date/Time of Exam: 12/26/2020 9:18 AM Reason For Exam: respiratory failure Comparison 12/25/2020. Bibasal infiltrates are again noted. There is been slight improvement involving infiltrates in the ri ght base but no other change. The lungs remain fully expanded. Normal cardiomediastinal structures. N o pleural effusions. An enteric tube is noted in the stomach in satisfactory location. A left-sided I J catheter ends in the lower one third of the SVC. XR/XR chest 1V [id number] IMPRESSION: 1. Improved infiltrates in the right basal region but no other change since the last study.
--- NOTE | 2020-12-26 09:28 | PC.RESP ---
sputum gave to lab
[2020-12-26] MEDS: cefepime 1,000 MG in sodium chloride 0.9% (plus) 50 ML 100 MG IV ×2 (09:44→23:14)
--- NOTE | 2020-12-26 10:04 | PC.CHAP ---
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 hospital recruiter visit [] Patient/Family/Request visit [] Outpatient visit [] Follow-up visit [] Physician referral [] Code/Alert [x] Routine visit [] Staff referral [] Actively dying [] Patient sleeping [x] Family support [] [] Out of room [] Palliative care [] [] Receiving care in room [] Pre-surgical visit [] Trauma [] Long length of stay [x] ICU visit [x] Other: brother on second floor with covid Relational/Emotional Strength [] Patient feels connected with others/family/visitors/staff [] Distress [] Loneliness/isolation [] Abandonment Spirituality of Patient [] Person of Elvia [] Attends Buddhist of their Elvia [] Believes in Prayer [] Reads Bible or Synagogue materials [] There are Spiritual issues to be addressed Forest Examiner Interventions [x] Prayer [] Active listening [] Non-anxious presence [] Spiritual/emotional support [] Crisis/trauma care [] Spiritual counseling [] Bereavement support [] Provided bereavement packet [] Provided Bible/devotional materials [] Provided toy/stuffed animal, coloring book to patient or family member [] Provided Communion [] Anointing/[place] [] Salvation [x] Completed spiritual assessment [] Other: Impact on Illness or Injury [] Angry [] Fearful [] Anxious [] Often cries [] Exhaustion [] Unable to work [] Unable to attend shinto [] Unable to walk/stand [] Unable to read [] Unable to drive [] Unable to eat/drink [] Unable to sleep [] Unable to be with family [] Patient intubated [] Other: Summary Time spent with patient
[2020-12-26] MEDS: cisatracurium 100 MG in sodium chloride 0.9% 50 ML 5.3 MG IV (10:17)
[2020-12-26] MEDS: dexmedetomidine 400 MCG in sodium chloride 0.9% (100 ml) 100 ML 14.12 MCG IV ×3 (10:17→22:12)
--- NOTE | 2020-12-26 10:30 | PC.NURSE ---
Precedex and Levophed started Propofol d/c and precedex started per Dr orders. Pt became hypotensive with MAP in the 50's. Levophed restarted at 10; pt's MAP is now in the 70's and the levophed will be titrated per protocol. Phys notified of restart of Levophed.
[2020-12-26 11:14] LABS: Glucose Point of Care 377 mg/dL (70-110)
--- NOTE | 2020-12-26 12:43 | P.PN_ITS ---
Subjective Subjective: Interval history: Patient was seen and examined. Unfortunately his oxygen requirement has gone up. Currently the patient is on 80% oxygen. He is paralyzed today. The plan is for him to undergo prone positioning. The patient had low-grade fever today. Medications: Reviewed: Yes Vitals/I&O/Wt Last Vital Signs Temp 100.0 F H 12/26/20 12:00 Pulse 81 12/26/20 12:00 Resp 23 H 12/26/20 12:00 BP 125/75 12/26/20 12:00 Pulse Ox 91 12/26/20 10:00 12/25/20 12/26/20 12/26/20 22:59 06:59 14:59 Intake Total 827.128 / 1107.128 658.876 / 1766.004 429.200 / 429.200 Output Total 1800 / 1800 400 / 2200 Balance -972.872 / -692.872 258.876 / -433.996 429.200 / 429.200 Weight last 48 hrs Weight 199 lb 8 oz Weight 194 lb Physical Exam Narrative: EXAM NARRATIVE: General: Patient is intubated, sedated and paralyzed Neck: No JVD Respiratory: Auscultation: Reduced breath sound bilaterally, minimal crackles at lung bases Cardiovascular: Regular rate and rhythm, S1-S2 present, no murmur, no peripheral edema. Abdomen: Soft, nondistended, sluggish bowel sound Skin: No rash Neuro: Patient is intubated and sedated Urinary Catheter Management^: Sloan: Cath Placed During This Visit: yes Reason for Continuing Indwelling Catheter: Accurate Measurement of Urinary Ou tput in Critically Ill Patients Urinary Catheter Date of Insertion: 12/22/20 Urinary Catheter Time of Insertion: 14:01 Data : 12/26/20 04:56 12/26/20 04:56 Micro: Microbiology 12/25/20 12:40 Urine Culture - Preliminary Urine Catheterized Attestation for Other Data: I personally reviewed and interpreted the following: Other data: I have reviewed the patient's laboratory, microbiologic and neurologic data. He has mild leukocytosis. The chest x-ray today did not reveal any significant worsening. Patient continues to be hyperglycemic. A&P Assessment and plan (1) Acute respiratory distress syndrome: This is a 60-year-old gentleman with acute hypoxic respiratory failure secondary to SARS-CoV-2 pneumonia. The patient has severe COVID-19. Unfortunately, the patient's oxygen requirement has not come down. His oxygen requirement has progressively increased to 80%. The patient is currently paralyzed and he is going to undergo prone positioning. Hopefully we are able to make recovery regarding his oxygenation. If not, the patient may need tracheostomy in the future. Status: Acute (2) Pneumonia due to COVID-19 virus: The patient is currently on remdesivir, dexamethasone. The patient was on baricitinib. The patient had received a dose of Tocilizumab on December 20. Patient is currently on vancomycin and cefepime. Status: Acute (3) DVT (deep venous thrombosis): The patient has acute occlusive DVT in the left popliteal vein. He is on full dose anticoagulation. Status: Acute (4) Hyperglycemia: The patient continues to be hyperglycemic. The dose of insulin has been adjusted Status: Acute (5) Acute kidney injury: Likely multifactorial. Creatinine has come down. The patient may require gentle hydration. Status: Acute Attestations Medical Necessity Statement*: Will defer to the primary team Coding Level of Care Code Acute Escrow Secretary for [facility] Fwd Diagnoses Acute respiratory distress syndrome J80 Pneumonia due to COVID-19 virus U07.1; J12.82 DVT (deep venous thrombosis) I82.409 Hyperglycemia R73.9 Acute kidney injury N17.9 Time Spent (min) 31
--- NOTE | 2020-12-26 14:22 | PC.NURSE ---
Proned 1400: pt proned with the help of nursing and RT. Pt tolerated well.
[2020-12-26 16:44] LABS: Glucose Point of Care 297 mg/dL (70-110)
--- NOTE | 2020-12-26 17:37 | PC.NURSE ---
Shift Note Frequent safety and comfort rounds continue. Orders and/or nursing care completed as indicated. Patient monitored for response to intervention and treatment(s). Education provided includes proning. Patient and/or medical detail representative verbalized understanding. Pt's brother Rex has been updated throughout the shift. Pt is currently proned. Will continue to monitor.
[2020-12-26] MEDS: insulin glargine 100 units/1 mL 22 UNIT SUBCUT (19:26)
[2020-12-26 20:33] LABS: Vancomycin Trough 6.6 ug/mL (10-15)
[2020-12-26 21:15] LABS: Glucose Point of Care 244 mg/dL (70-110)
[2020-12-27] VITALS (35 sets, daily range): BP systolic 87–140; BP diastolic 55–87; PULSE 68–93; RESP 20–96; TEMP 37.2–38.2; O2SAT 89–98
[2020-12-27] MEDS: dexamethasone 4 mg/mL INJ 6 MG IVP (02:45)
[2020-12-27] MEDS: enoxaparin 100 mg/mL Syringe 90 MG SUBCUT ×2 (02:46→14:54)
[2020-12-27] MEDS: acetaminophen 325 mg Tablet 650 MG PO (02:53)
[2020-12-27] MEDS: ipratropium-albuterol 3 mL Neb INHALATION ×4 (02:58→19:59)
[2020-12-27] MEDS: dexmedetomidine 400 MCG in sodium chloride 0.9% (100 ml) 100 ML 18.82 MCG IV (03:53)
[2020-12-27 04:34] LABS: ABG PCO2 55.3 mmHg (35-45); ABG PH Result 7.35 (7.35-7.45); Arterial Blood Gas Hematocrit 49.1 % (42-52); Base Excess ABG 3.3 mmol/L (-2.0-2.0); Blood Gas Allen Test Pos; Blood Gas Sample Site Radial, right; Blood Gas Sample Type Arterial; Blood Gas Tidal Volume 0.45; HCO3 ABG 30.5 mmol/L (22-26); Oxygen Device VENT; PO2 ABG 99.3 mmHg (80.0-100.0)
[2020-12-27 05:48] LABS: Basophils # 0.1 10^3/uL (0.0-0.1); Basophils % 0.4 %; Eosinophils # 0.1 10^3/uL (0.0-0.8); Eosinophils % 0.6 %; Hematocrit 48.1 % (42.0-52.0); Hemoglobin 15.2 g/dL (11.7-16.6); Lymphocytes # 0.6 10^3/uL (0.8-4.8); Mean Corpuscular HGB Conc 31.6 g/dL (30.0-36.0); Mean Corpuscular Hemoglobin 29.8 pg (28.0-34.0); Mean Corpuscular Volume 94.3 fl (80-94); Mean Platelet Volume 9.6 fL (7.4-10.4); Monocytes # 0.5 10^3/uL (0.2-0.9); Monocytes % 2.9 %; Neutrophils # 16.81 10^3/uL (1.8-7.7); Neutrophils % 91.6 %; Nucleated Red Blood Cells % 0 %; Platelet Count 320 10^3/cmm (130-400); Red Cell Distribution Width 12.5 % (12.1-15.1); White Blood Count 18.4 10^3/uL (4.0-10.0)
[2020-12-27 06:15] LABS: Alanine Aminotransferase 53 U/L (0-41); Albumin Level 3.3 g/dL (3.5-5.2); Alkaline Phosphatase 144 IU/L (40-130); Blood Urea Nitrogen 53 mg/dL (8-23); Calcium 8.9 mg/dL (8.5-10.5); Carbon Dioxide 28 mmol/L (22-29); Chloride 106 mmol/L (98-107); Globulin 2.7 g/dL (1.3-4.6); Glomerular Filtration Rate 114.3 mL/min (90-130); Glucose 243 mg/dL (65-115); Osmolality Calculated 318 mOsm/kg (285-295); Sodium 143 mmol/L (136-145); Total Bilirubin 0.7 mg/dL (0.15-1.2)
[2020-12-27 06:24] LABS: Anion Gap 14.8 (5-19); Aspartate Amino Transferase 27 U/L (0-40); Potassium 5.8 mmol/L (3.5-5.1)
[2020-12-27] MEDS: budesonide 0.5 mg/2 mL Neb INHALATION ×2 (08:03→19:59)
[2020-12-27 08:16] LABS: Glucose Point of Care 252 mg/dL (70-110)
--- NOTE | 2020-12-27 08:27 | USR_ITS ---
PROCEDURE INFORMATION: Exam: US Retroperitoneal Limited, Kidneys Exam date and time: 12/27/2020 8:27 AM Age: 60 years old Clinical indication: Abnormal findings; Abnormal lab test; Abnormal kidney function lab tests; Additional info: Shree TECHNIQUE: Imaging protocol: Real-time ultrasound of the retroperitoneum with image documentation. Examination was focused on the kidneys. COMPARISON: US soft tissue/extremity [id number] 12/26/2020 9:31 AM FINDINGS: Right kidney: 13.4 cm in length.. No stones. No hydronephrosis. Left kidney: 11.3 cm in length. No stones. No hydronephrosis. Additional findings: 1.7 x 1.5 x 2.8 cm ovoid hypoechoic lesion along the superior margin of the left kidney, likely a splenule. Liver: Echogenic, consistent with fatty infiltration. Additional findings: 1.7 x 1.5 x 2.8 cm ovoid hypoechoic lesion along the superior margin of the left kidney, likely a splenule. US/US renal BI* [id number] IMPRESSION: 1. No acute sonographic findings. 2. Additional findings, as above. Radiation Dose CTDIVOL = (mGy): DLP = (mGy-cm)
[2020-12-27] MEDS: insulin glargine 100 units/1 mL 22 UNIT SUBCUT ×2 (08:51→22:19)
[2020-12-27] MEDS: insulin lispro 100 unit/1 mL SUBCUT ×4 (08:51→22:18)
[2020-12-27] MEDS: pantoprazole DR 40 mg Tablet PO (08:51)
--- NOTE | 2020-12-27 09:47 | PM.PN ---
Subjective Subjective: Interval history: Intubated, sedated, respiratory rate 29-30. No seizure-like activity. Vitals/I&O/Wt Last Vital Signs Temp 100.6 F H 12/26/20 22:00 Pulse 74 12/27/20 08:05 Resp 29 H 12/27/20 08:00 BP 113/63 12/27/20 06:00 Pulse Ox 94 12/27/20 08:00 12/26/20 12/27/20 12/27/20 22:59 06:59 14:59 Intake Total 1131.808 / 1611.008 598.523 / 2209.531 Output Total 2200 / 2200 950 / 3150 Balance -1068.192 / -588.992 -351.477 / -940.469 Weight last 48 hrs Weight 84.822 kg Weight 90.492 kg Physical Exam Const: COMMON NORMALS: no acute distress GENERAL APPEARANCE: patient mechanically ventilated OTHER: Sedated HENMT: COMMON NORMALS: oropharynx normal Neck/C-Spine: COMMON NORMALS: no JVD Resp: COMMON NORMALS: normal respiratory effort and clear to auscultation bilaterally EFFORT & INSPECTION: Yes tachypneic AUSCULTATION: clear to auscultation bilaterally Cardio: COMMON NORMALS: no JVD, regular rhythm, S1 normal heart sound present, S2 normal heart sound present and No murmurs present (Cardio) RHYTHM: regular rhythm HEART SOUNDS: S1 normal heart sound present and S2 normal heart sound present GI: COMMON NORMALS: Normal to inspection, nondistended, normoactive bowel sounds present and Soft to palpation PALPATION: Yes Soft to palpation OTHER: L superolateral of umbilicus soft tissue lump above 3 x 5 cm, present previously Extremity: COMMON NORMALS: no joint enlargement and no pedal edema Neuro: COMMON NORMALS: moves all extremities Skin: COMMON NORMALS: no rashes or lesions noted GENERAL SKIN EXAM: no rashes or lesions noted Urinary Catheter Management^: Sloan: Cath Placed During This Visit: yes Reason for Continuing Indwelling Catheter: Accurate Measurement of Urinary Output in Critically Ill Patients Urinary Catheter Date of Insertion: 12/22/20 Urinary Catheter Time of Insertion: 14:01 Data : 12/27/20 05:23 12/27/20 05:23 Micro: Microbiology 12/25/20 12:40 Urine Culture - Final Urine Catheterized 12/26/20 08:35 Gram Stain - Final Sputum - Endotracheal Tube Aspirate A&P Assessment and plan (1) Pneumonia due to COVID-19 virus: Paralyzed and proned yesterday. He tachypneic again. Worsening hypoxia. Discussed with nursing staff to hold tube feeds and proceed with additional proning session today after this point time interval. Continue Decadron. Anticoagulation for DVT. Continue pressor support as needed, currently on 6 mcg/min Levophed Received monoclonal antibody this morning at [facility] reportedly Completed remdesivir Hold baricitinib received 3 doses, 1 dose Actemra duoneb q6h, budesonide q12h CTA chest negative for PE Reintubated after inadvertent extubation on 12/25. Urine culture without growth so far. Sloan exchanged on 11/24. Tried sister's number again for update. Status: Acute (2) Respiratory failure with hypoxia: Status: Acute (3) Acute respiratory distress syndrome: Status: Acute (4) Transaminitis: Mild. Monitor. Status: Acute (5) DVT (deep venous thrombosis): Therapeutic Lovenox. Status: Acute (6) JAY (acute kidney injury): Renal function improving. Creatinine normalized. BUN improving. Hyperkalemia resolved. Sloan noted with partial obstruction, exchanged on 12/24. Status: Acute (7) Hyperkalemia: 5.8. Some fluctuation potassium recently after acute kidney injury. JAY has been gradually improving. We will recheck potassium later this afternoon. On Nepro for tube feeds, but will be held for additional proning today. Status: Acute Additional A&P Information Type 2 diabetes mellitus, moderate dose sliding scale, increase Lantus 22 every 12 Periumbilical lump: Soft tissue ultrasound requested. Attestations Medical Necessity Statement*: Continue admission for assessment of management of hypoxic respiratory failure secondary requiring mechanical ventilatory support, pressor, sedation, paralytic, proning Critical Care Time: In addition to noncritical issues 40 minutes critical care time spent on assessment of management of ongoing hypoxic respiratory failure requiring mechanical ventilatory support, hypoxia, tachypnea, requiring additional paralytics, proning, potential pressors. Coding Level of Care Code Acute Sleeve Sewer for [facility] Fwd Diagnoses Pneumonia due to COVID-19 virus U07.1; J12.82 Respiratory failure with hypoxia J96.91 Acute respiratory distress syndrome J80 Transaminitis R74.01 DVT (deep venous thrombosis) I82.409 JAY (acute kidney injury) N17.9 Hyperkalemia E87.5
[2020-12-27] MEDS: cefepime 1,000 MG in sodium chloride 0.9% (plus) 50 ML 100 MG IV ×2 (10:56→22:20)
[2020-12-27] MEDS: dexmedetomidine 400 MCG in sodium chloride 0.9% (100 ml) 100 ML 23.53 MCG IV ×3 (10:57→22:21)
[2020-12-27 11:05] LABS: Glucose Point of Care 258 mg/dL (70-110)
[2020-12-27] MEDS: cisatracurium 100 MG in sodium chloride 0.9% 50 ML 5.3 MG IV (12:50)
[2020-12-27 14:22] LABS: Potassium 5.8 mmol/L (3.5-5.1)
[2020-12-27] MEDS: vancomycin 1,500 MG/300 ML PIGGYBACK 200 MG IV (14:53)
--- NOTE | 2020-12-27 15:16 | PC.NURSE ---
Patient was supined at 1500. Tolerated well
[2020-12-27 17:35] LABS: Glucose Point of Care 196 mg/dL (70-110)
--- NOTE | 2020-12-27 18:40 | PC.NURSE ---
Shift Note Frequent safety and comfort rounds continue. Orders and/or nursing care completed as indicated. Patient monitored for response to intervention and treatment(s). vent compliance. Patient unable to comprehend. Patient was proned this shift and tolerated well. Will continue to monitor.
[2020-12-27 20:18] LABS: Glucose Point of Care 211 mg/dL (70-110)
--- NOTE | 2020-12-27 22:28 | PC.NURSE ---
BEGINNING OF SHIFT. PT SEDATED AND PARALYZED ON VENT. TRAIN OF FOUR RESPONSE AT 4-- CRANIAL AREA ASSESSED. ALC[place]ARA DRAINING ROB COLORED URINE WITH SEDIMENT. LIJ TL CVC PATENT AND INFUSING WITH IV MEDS ORDERED PT LYING IN PRONE TO SWIMMERS POSITION WITH ETT PATENT.
[2020-12-28] VITALS (81 sets, daily range): BP systolic 81–127; BP diastolic 51–81; PULSE 79–120; RESP 19–28; TEMP 37.7–39.5; O2SAT 90–96
--- NOTE | 2020-12-28 00:18 | PC.NURSE ---
REASSESSMENT: REASSESSMENT COMPLETE-- NO ACUTE CHANGES NOTED. LEVOPHED INFUSING AT 5 MCG/MIN WITH BP 100/67. BATHED WITH CHG WIPES-- CATHETER CARE DONE. MONITORS, BED, IV PUMPS AND TABLE SANITIZED WITH CLOROX WIPES.
[2020-12-28] MEDS: dexamethasone 4 mg/mL INJ 6 MG IVP (02:00)
[2020-12-28] MEDS: enoxaparin 100 mg/mL Syringe 90 MG SUBCUT ×2 (02:00→16:10)
[2020-12-28] MEDS: vancomycin 1,500 MG/300 ML PIGGYBACK 200 MG IV ×2 (02:02→16:09)
[2020-12-28] MEDS: ipratropium-albuterol 3 mL Neb INHALATION ×4 (02:30→20:41)
[2020-12-28 03:11] LABS: Basophils # 0.1 10^3/uL (0.0-0.1); Basophils % 0.4 %; Eosinophils % 0.1 %; Hematocrit 50.3 % (42.0-52.0); Hemoglobin 15.5 g/dL (11.7-16.6); Lymphocytes # 1.9 10^3/uL (0.8-4.8); Lymphocytes % 11.3 %; Mean Corpuscular HGB Conc 30.8 g/dL (30.0-36.0); Mean Corpuscular Hemoglobin 29.7 pg (28.0-34.0); Mean Corpuscular Volume 96.4 fl (80-94); Mean Platelet Volume 9.6 fL (7.4-10.4); Monocytes # 1.6 10^3/uL (0.2-0.9); Monocytes % 9.9 %; Neutrophils # 12.86 10^3/uL (1.8-7.7); Neutrophils % 77.3 %; Nucleated Red Blood Cells % 0 %; Platelet Count 334 10^3/cmm (130-400); Red Blood Count 5.22 10^6/uL (4.1-5.3); Red Cell Distribution Width 12.6 % (12.1-15.1); White Blood Count 16.6 10^3/uL (4.0-10.0)
[2020-12-28] MEDS: dexmedetomidine 400 MCG in sodium chloride 0.9% (100 ml) 100 ML 23.53 MCG IV (03:33)
[2020-12-28 03:36] LABS: Alanine Aminotransferase 42 U/L (0-41); Albumin Level 3.4 g/dL (3.5-5.2); Alkaline Phosphatase 56 IU/L (40-130); Anion Gap 14.2 (5-19); Aspartate Amino Transferase 22 U/L (0-40); Blood Urea Nitrogen 64 mg/dL (8-23); Carbon Dioxide 27 mmol/L (22-29); Chloride 108 mmol/L (98-107); Globulin 2.7 g/dL (1.3-4.6); Glomerular Filtration Rate 85.5 mL/min (90-130); Glucose 228 mg/dL (65-115); Osmolality Calculated 324 mOsm/kg (285-295); Potassium 5.2 mmol/L (3.5-5.1); Sodium 144 mmol/L (136-145); Total Bilirubin 0.7 mg/dL (0.15-1.2); Total Protein 6.1 g/dL (6.6-8.7)
[2020-12-28 05:51] LABS: Arterial Blood Gas Hematocrit 50.6 % (42-52); Base Excess ABG 1.1 mmol/L (-2.0-2.0); Blood Gas Allen Test Pos; Blood Gas Sample Type Arterial; Carboxyhemoglobin 0.9 %THgb (0.4-20.1); HCO3 ABG 29.4 mmol/L (22-26); HGB O2 Sat 93.3 % (95-100); Methemoglobin 0.4 % (0.4-1.5); PO2 ABG 75.8 mmHg (80.0-100.0); Total Hemoglobin 16.5 g/dL (14-18)
[2020-12-28 05:53] LABS: Blood Gas Sample Site Radial, right; Blood Gas Tidal Volume 0.45; Oxygen Device VENT
--- NOTE | 2020-12-28 06:00 | XRR_ITS ---
PROCEDURE INFORMATION: Exam: XR Chest Exam date and time: 12/28/2020 6:00 AM Age: 60 years old Clinical indication: Dyspnea; Additional info: Hypoxia TECHNIQUE: Imaging protocol: XR of the chest. Views: 1 view. COMPARISON: CR XR chest 1V [id number] 12/26/2020 9:13 AM FINDINGS: Tubes, catheters and devices: NG tube courses below the diaphragm with nonvisualization of the tip. Left upper extremity catheter projects over the SVC. Endotracheal tube projects above the level of the jun. Lungs: Patient is rotated Bilateral perihilar lower lobe opacities which may be seen with pneumonia or pulmonary edema. Pleural spaces: Unremarkable. No pleural effusion. No pneumothorax. Heart/Mediastinum: No cardiomegaly. Bones/joints: No acute fracture. XR/XR chest 1V portable [id number] IMPRESSION: Bilateral perihilar lower lobe opacities which may be seen with pneumonia or pulmonary edema, without significant change. Radiation Dose CTDIVOL = (mGy): DLP = (mGy-cm)
[2020-12-28] MEDS: cisatracurium 100 MG in sodium chloride 0.9% 50 ML 5.3 MG IV (06:34)
[2020-12-28 07:57] LABS: Glucose Point of Care 236 mg/dL (70-110)
[2020-12-28] MEDS: dexmedetomidine 400 MCG in sodium chloride 0.9% (100 ml) 100 ML 21.18 MCG IV ×2 (08:05→23:18)
[2020-12-28] MEDS: acetaminophen 325 mg Tablet 650 MG PO ×3 (08:05→21:25)
[2020-12-28] MEDS: insulin glargine 100 units/1 mL 22 UNIT SUBCUT (08:06)
[2020-12-28] MEDS: insulin lispro 100 unit/1 mL SUBCUT ×4 (08:06→21:22)
[2020-12-28] MEDS: pantoprazole DR 40 mg Tablet PO (08:06)
[2020-12-28] MEDS: budesonide 0.5 mg/2 mL Neb INHALATION ×2 (08:13→20:42)
--- NOTE | 2020-12-28 08:17 | PC.NURSE ---
Patient has a temperature of 103.1 axillary. Nurse administered PRN tylenol, placed fan blowing on patient, and alerted Dr alex, who ordered blood cultures.
--- NOTE | 2020-12-28 08:23 | XRR_ITS ---
PROCEDURE INFORMATION: Exam: XR Abdomen Exam date and time: 12/28/2020 8:23 AM Age: 60 years old Clinical indication: Bloating and fever; Additional info: Assess for ileus or obstruction TECHNIQUE: Imaging protocol: XR of the abdomen. Views: 2 Views. Upright and supine views. COMPARISON: CR (CHEST, ) 12/28/2020 5:23 AM FINDINGS: Tubes, catheters and devices: Stable left central line. Enteric tube tip is over the antrum of the stomach (distal stomach). Stable endotracheal tube. Lungs: Mild right basilar and [id number]-vagoelrz left basilar pneumonia. Gastrointestinal tract: Mild retained feces. Mild nonspecific air-filled dilatation of the transverse colon. Intraperitoneal space: Normal. No free air. Bones/joints: Unremarkable for age. XR/XR acute abdomen series [id number] IMPRESSION: 1. Stable left central line. 2. Enteric tube tip is over the antrum of the stomach (distal stomach). 3. Stable endotracheal tube. 4. Mild right basilar and [id number]-vewvosea left basilar pneumonia. 5. Mild nonspecific air-filled dilatation of the transverse colon. Radiation Dose CTDIVOL = (mGy): DLP = (mGy-cm)
--- NOTE | 2020-12-28 08:54 | P.PN_ITS ---
Subjective Subjective: Interval history: Intubated, sedated, coming down sedation somewhat to attempt assess mental status. Respiratory rate 29. He does not appear in distress. Vitals/I&O/Wt Last Vital Signs Temp 99.8 F H 12/28/20 00:00 Pulse 95 12/28/20 08:13 Resp 25 H 12/28/20 08:13 BP 100/61 12/28/20 06:00 Pulse Ox 95 12/28/20 08:13 12/27/20 12/28/20 12/28/20 22:59 06:59 14:59 Intake Total 878.614 / 1374.653 667.987 / 2042.640 257.288 / 257.288 Output Total 1250 / 1250 800 / 2050 Balance -371.386 / 124.653 -132.013 / -7.360 257.288 / 257.288 Weight last 48 hrs Weight 87.362 kg Weight 84.822 kg Physical Exam Const: COMMON NORMALS: no acute distress GENERAL APPEARANCE: patient mechanically ventilated OTHER: Sedated HENMT: COMMON NORMALS: oropharynx normal Neck/C-Spine: COMMON NORMALS: no JVD Resp: COMMON NORMALS: normal respiratory effort and clear to auscultation bilaterally EFFORT & INSPECTION: Yes tachypneic AUSCULTATION: clear to auscultation bilaterally Cardio: COMMON NORMALS: no JVD, regular rhythm, S1 normal heart sound present, S2 normal heart sound present and No murmurs present (Cardio) RHYTHM: regular rhythm HEART SOUNDS: S1 normal heart sound present and S2 normal heart sound present GI: COMMON NORMALS: Normal to inspection, nondistended, normoactive bowel sounds present and Soft to palpation PALPATION: Yes Soft to palpation OTHER: L superolateral of umbilicus soft tissue lump above 3 x 5 cm, present previously Extremity: COMMON NORMALS: no joint enlargement and no pedal edema Neuro: COMMON NORMALS: moves all extremities Skin: COMMON NORMALS: no rashes or lesions noted GENERAL SKIN EXAM: no rashes or lesions noted Urinary Catheter Management^: Sloan: Cath Placed During This Visit: yes Reason for Continuing Indwelling Catheter: Accurate Measurement of Urinary Output in Critically Ill Patients Urinary Catheter Date of Insertion: 12/22/20 Urinary Catheter Time of Insertion: 14:01 Data : 12/28/20 03:00 12/28/20 03:00 Micro: Microbiology 12/26/20 08:35 Gram Stain - Final Sputum - Endotracheal Tube Aspirate Sputum Culture - Preliminary 12/25/20 12:40 Urine Culture - Final Urine Catheterized A&P Assessment and plan (1) Pneumonia due to COVID-19 virus: This morning with acute respiratory acidosis with slight trend toward chronic respiratory acidosis with compensation, pH 7.3, CO2 60. PO2 overall gradually improving. Overnight respiratory rates recorded in the twenties. Tidal volume appears appropriate for ideal body weight. Minute ventilation appears mostly 12-13. Likely inadequately paralyzed working/overbreathing the vent overnight. Chest x-ray with persistent pneumonia in the lower lobes. Spiking fever this morning 103. Treating fever. Hypercapnia and also hyperkalemia. With acidosis. Worsening pressor requirement, norepinephrine up to 6. Dropping down tube feeds rate temporarily, but if not improving will need to get back to previous goal to supply calories he needs secondary to tachypnea, fever, etc. Please reassess again. Possibly increase catabolism secondary to steroid. Attempt to taper Decadron. Assess CK. Triglycerides were elevated, although should not be causing pancreatitis, but will check lipase. Continue to avoid propofol. Acute abdominal series XR, although abdomen is soft. Though has not had a bowel movement it appears since being in the hospital. Add bowel regimen. Periumbilical hernia noted, but not incarcerated on ultrasound. Consider CT if abdomen starts appearing concerning. Does not appear to have evidence of metabolic acidosis at this time. We are trying to wean down sedation for now to reassess mental status, although he is rather tachypneic, currently up to 29 breaths/min, becoming further tachypneic will need to be resedated and left the ventilator to the work. If persistently tachypneic possibly additional session of paralysis and possibly proning. Alternatively if improving and blood pressure hold steady, may allow him to blow some of the CO2 off on his own. We will again repeat ABG. Monitor respiratory rate. Pressor requirement. Updated his sister and discussed events over the previous days. COVID-19 pneumonia, possibly contribution of aspiration pneumonia with inadvertent extubation continue to reassess for other potential sources. Septic shock with persistent leukocytosis, fever, hypotension. Continue broadened antibiotic course with cefepime, vancomycin. Continue Decadron. Anticoagulation for DVT. Received monoclonal antibody this morning at [facility] reportedly Completed remdesivir Hold baricitinib received 3 doses, 1 dose Actemra duoneb q6h, budesonide q12h CTA chest negative for PE Reintubated after inadvertent extubation on 12/25. Urine culture without growth so far. Sloan exchanged on 11/24. Status: Acute (2) Respiratory failure with hypoxia: Status: Acute (3) Acute respiratory distress syndrome: Status: Acute (4) Transaminitis: Mild. Monitor. Status: Acute (5) DVT (deep venous thrombosis): Therapeutic Lovenox. Status: Acute (6) JAY (acute kidney injury): Renal function improving. Creatinine normalized. BUN improving. Hyperkalemia resolved. Sloan noted with partial obstruction, exchanged on 12/24. Status: Acute (7) Hyperkalemia: 5.2. We came down on tube feeds slightly. Monitor renal function. BUN wan adjustmentncrease. Hemoglobin Colace daily. No evidence of GI bleed otherwise. Will increase tube flushes slightly. Should not be deficient in sodium. No further Sloan obstruction noted so far since exchange. Kidney ultrasound okay. Some fluctuation potassium recently after acute kidney injury. JAY has been gradually improving. We will recheck potassium later this afternoon. On Nepro for tube feeds, but will be held for additional proning today. Status: Acute Additional A&P Information Type 2 diabetes mellitus, moderate dose sliding scale, increase Lantus 22 every 12 Periumbilical lump: Hernia without evidence of incarceration on ultrasound. Incidentally noted 1.7 x 1.5 x 2.8 cm ovoid hypoechoic lesion along superior margin of the left kidney, likely a splenule. Attestations Medical Necessity Statement*: Continue admission for hypoxic respiratory failure, septic shock. Critical Care Time: In addition to noncritical issues, 60 minutes critical care time spent on assessment management of life-threatening issues including septic shock, respiratory acidosis, worsening hypercapnia, continued hypoxic respiratory failure, reassessment and adjustment of sedation, ventilatory sett ings, further assessment of causes of respiratory acidosis, in setting of fever, tube feeding, reassessment of antibiotic regimen, hyperkalemia and renal function. Discussed with RN, RT, family. Coding Level of Care Code Acute Office Service Coordinator for g Fwd Exam Comprehensive Diagnoses Pneumonia due to COVID-19 virus U07.1; J12.82 Respiratory failure with hypoxia J96.91 Acute respiratory distress syndrome J80 Transaminitis R74.01 DVT (deep venous thrombosis) I82.409 JAY (acute kidney injury) N17.9 Hyperkalemia E87.5
[2020-12-28 09:19] LABS: Creatine Phosphokinase 352 U/L (39-308)
[2020-12-28 09:21] LABS: Blood Gas Allen Test Pos; Blood Gas Operator Identificat CAK; Blood Gas Sample Site Radial, left; Blood Gas Sample Type Arterial; Blood Gas Tidal Volume 0.45; Carboxyhemoglobin 0.9 %THgb (0.4-20.1); Ionized Calcium Level - ABG 1.3 mmol/L (1.1-1.4); Methemoglobin 0.5 % (0.4-1.5); Oxygen Device VENT; Potassium Level - ABG 5.2 mmol/L (3.5-5.0)
[2020-12-28 09:24] LABS: ABG PCO2 57.5 mmHg (35-45); ABG PH Result 7.31 (7.35-7.45); Alveolar-Arterial Oxygen Gradi 35.9 mmHg (5-10); Arterial Blood Gas Hematocrit 48.3 % (42-52); Base Excess ABG 1.2 mmol/L (-2.0-2.0); HGB O2 Sat 94.9 % (95-100); Oxygen Saturation ABG 96.2; PO2 ABG 82.2 mmHg (80.0-100.0); Total Hemoglobin 15.8 g/dL (14-18)
[2020-12-28 09:45] LABS: Lipase 27 U/L (13-60); Triglycerides 417 mg/dL (0-150)
[2020-12-28] MEDS: bisacodyl 10 mg Supp PR (09:45)
[2020-12-28] MEDS: cefepime 1,000 MG in sodium chloride 0.9% (plus) 50 ML 100 MG IV ×2 (09:57→21:22)
[2020-12-28] MEDS: polyethylene glycol 3350 Pkt 17 gm PO (09:57)
[2020-12-28 10:10] LABS: LDL Cholesterol Direct 84 mg/dL (0-100)
[2020-12-28 12:03] LABS: Glucose Point of Care 267 mg/dL (70-110)
[2020-12-28 14:30] LABS: ABG PCO2 49.6 mmHg (35-45); ABG PH Result 7.39 (7.35-7.45); Arterial Blood Gas Hematocrit 49.3 % (42-52); Base Excess ABG 3.5 mmol/L (-2.0-2.0); Blood Gas Allen Test Pos; Blood Gas Operator Identificat CAK; Blood Gas Sample Site Brachial, left; Blood Gas Sample Type Arterial; Blood Gas Tidal Volume 0.45; HCO3 ABG 29.8 mmol/L (22-26); Oxygen Device VENT; PO2 ABG 73.3 mmHg (80.0-100.0)
[2020-12-28] MEDS: dexmedetomidine 400 MCG in sodium chloride 0.9% (100 ml) 100 ML 16.47 MCG IV (17:29)
--- NOTE | 2020-12-28 19:00 | PC.NURSE ---
Beginning of shift Shift report from MIMI Ambriz. Pt sedated on vent. BIS 70. Assessment complete. IV meds infusing via LIJ TL CVL. Sloan patent and draining to gravity. Tube feedings infusing via OGT. Residuals <20 mL. Temp 102.5
--- NOTE | 2020-12-28 19:16 | PC.NURSE ---
Shift summary: Nurse titrated down sedatives for a sedation vacation. Patient tolerated lower amount of sedation so nurse did not return sedation to previous levels. Today nimbex was turned off. Levophed was turned off. Versed was at 6 mg/hr at beggining of shift but is now turned off. precedex was reduced from 1 to 0.9. fentanyl remains at 100mcg/hr. Patient did have a fever as high as 103.5 axillary today, which was treated with prn tylenol. Blood cultures pending. Family has been updated on status.
[2020-12-28 19:42] LABS: Glucose Point of Care 197 mg/dL (70-110)
[2020-12-28 20:22] LABS: Glucose Point of Care 207 mg/dL (70-110)
[2020-12-28] MEDS: insulin glargine 100 units/1 mL 23 UNIT SUBCUT (21:23)
[2020-12-29] VITALS (107 sets, daily range): BP systolic 71–130; BP diastolic 46–83; PULSE 70–112; RESP 22–28; TEMP 36.6–39.1; O2SAT 85–97
[2020-12-29 00:25] LABS: Potassium 4.6 mmol/L (3.5-5.1)
--- NOTE | 2020-12-29 00:26 | PC.NURSE ---
Abnormal Vital Signs BP 71/46, O2 sats 83%, RR 40 bpm, HR 96. Pt with persistent cough. Respiratory therapy called to bedside for assistance. Vent settings adjusted per RT. Levophed restarted. Versed restarted.
[2020-12-29] MEDS: ipratropium-albuterol 3 mL Neb INHALATION ×6 (02:30→23:09)
[2020-12-29] MEDS: dexamethasone 4 mg/mL INJ 3 MG IVP (02:37)
[2020-12-29] MEDS: vancomycin 1,500 MG/300 ML PIGGYBACK 200 MG IV ×2 (02:37→16:18)
[2020-12-29] MEDS: enoxaparin 100 mg/mL Syringe 90 MG SUBCUT ×2 (02:37→14:58)
[2020-12-29] MEDS: acetaminophen 325 mg Tablet 650 MG PO ×2 (02:43→16:17)
[2020-12-29 02:58] LABS: Basophils # 0.1 10^3/uL (0.0-0.1); Basophils % 0.5 %; Hematocrit 47.5 % (42.0-52.0); Lymphocytes # 1.4 10^3/uL (0.8-4.8); Lymphocytes % 5.6 %; Mean Corpuscular HGB Conc 31.6 g/dL (30.0-36.0); Mean Corpuscular Hemoglobin 30.5 pg (28.0-34.0); Mean Corpuscular Volume 96.7 fl (80-94); Mean Platelet Volume 9.6 fL (7.4-10.4); Monocytes # 1.8 10^3/uL (0.2-0.9); Monocytes % 7.2 %; Neutrophils # 21.57 10^3/uL (1.8-7.7); Neutrophils % 86.2 %; Nucleated Red Blood Cells % 0 %; Platelet Count 245 10^3/cmm (130-400); Red Blood Count 4.91 10^6/uL (4.1-5.3); Red Cell Distribution Width 12.8 % (12.1-15.1); White Blood Count 25.1 10^3/uL (4.0-10.0)
[2020-12-29 03:21] LABS: Alanine Aminotransferase 47 U/L (0-41); Albumin Level 3.3 g/dL (3.5-5.2); Alkaline Phosphatase 45 IU/L (40-130); Anion Gap 14.4 (5-19); Aspartate Amino Transferase 19 U/L (0-40); Blood Urea Nitrogen 59 mg/dL (8-23); Calcium 9.4 mg/dL (8.5-10.5); Carbon Dioxide 26 mmol/L (22-29); Chloride 110 mmol/L (98-107); Creatine Phosphokinase 194 U/L (39-308); Globulin 2.3 g/dL (1.3-4.6); Glomerular Filtration Rate 114.3 mL/min (90-130); Glucose 298 mg/dL (65-115); Osmolality Calculated 330 mOsm/kg (285-295); Potassium 4.4 mmol/L (3.5-5.1); Sodium 146 mmol/L (136-145); Total Bilirubin 0.7 mg/dL (0.15-1.2); Total Protein 5.6 g/dL (6.6-8.7)
[2020-12-29 03:29] LABS: Vancomycin Trough 13.3 ug/mL (10-15)
[2020-12-29] MEDS: dexmedetomidine 400 MCG in sodium chloride 0.9% (100 ml) 100 ML 21.18 MCG IV ×2 (04:11→21:29)
[2020-12-29 05:20] LABS: ABG PH Result 7.33 (7.35-7.45); Arterial Blood Gas Hematocrit 43.5 % (42-52); Base Excess ABG 1.4 mmol/L (-2.0-2.0); Blood Gas Allen Test Pos; Blood Gas Sample Type Arterial; HCO3 ABG 28.6 mmol/L (22-26); PO2 ABG 73.3 mmHg (80.0-100.0)
[2020-12-29 05:21] LABS: Blood Gas Sample Site Radial, right; Blood Gas Tidal Volume 0.45; Oxygen Device VENT
--- NOTE | 2020-12-29 05:51 | PC.NURSE ---
Bloody sputum/urine Notified Dr. Roe of pt blood-tinged sputum from ETT this shift and new blood-tinged urine. SBAR given with most recent vitals and recent hgb/hct. No new orders at this time. Will continue to monitor.
--- NOTE | 2020-12-29 06:00 | XRR_ITS ---
PROCEDURE INFORMATION: Exam: XR Chest Exam date and time: 12/29/2020 6:00 AM Age: 60 years old Clinical indication: Dyspnea; Additional info: Hypoxia TECHNIQUE: Imaging protocol: XR of the chest. Views: 1 view. COMPARISON: CR (CHEST, ) 12/28/2020 5:23 AM FINDINGS: Tubes, catheters and devices: An endotracheal tube is placed with its tip approximately 5.3 cm from the jun. A nasogastric tube is present with its tip at least in the proximal stomach. EKG leads overlie the chest. Lungs: There are bilateral predominately basilar increased interstitial opacities present and there is mild indistinctness of pulmonary vasculature seen. These findings may represent pulmonary edema although a bilateral basilar interstitial pneumonia cannot be excluded. Pleural spaces: Unremarkable. No pleural effusion. No pneumothorax. Heart/Mediastinum: Unremarkable. No cardiomegaly. Vasculature: A left internal jugular vein central venous line is placed with its tip at the level of the superior vena cava. Bones/joints: Unremarkable. XR/XR chest 1V portable 12110 IMPRESSION: Indistinct pulmonary vasculature and bilateral lower lobe interstitial markings may represent pulmonary edema although a bilateral basilar interstitial pneumonia cannot be excluded. Radiation Dose CTDIVOL = (mGy): DLP = (mGy-cm)
[2020-12-29 07:38] LABS: Glucose Point of Care 299 mg/dL (70-110)
[2020-12-29] MEDS: insulin lispro 100 unit/1 mL SUBCUT ×4 (08:15→20:49)
[2020-12-29] MEDS: insulin glargine 100 units/1 mL 23 UNIT SUBCUT (08:15)
[2020-12-29] MEDS: budesonide 0.5 mg/2 mL Neb INHALATION ×2 (09:09→19:36)
--- NOTE | 2020-12-29 09:13 | PC.CHAP ---
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 [] Patient/Family/Request visit [] Outpatient visit [] Follow-up visit [] Physician referral [] Code/Alert [x] Routine visit [] Staff referral [] Actively dying [x] Patient sleeping [] Family support [] [] Out of room [] Palliative care [] [] Receiving care in room [] Pre-surgical visit [] Trauma [] Long length of stay [x] ICU visit [x] Other: covid Relational/Emotional Strength [] Patient feels connected with others/family/visitors/staff [] Distress [] Loneliness/isolation [] Abandonment Spirituality of Patient [] Person of Elvia [] Attends Alevism of their Elvia [] Believes in Prayer [] Reads Bible or Spiritism materials [] There are Spiritual issues to be addressed 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 Equipment 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 Interventions [x] Prayer [] Active listening [] Non-anxious presence [] Spiritual/emotional support [] Crisis/trauma care [] Spiritual counseling [] Bereavement support [] Provided bereavement packet [] Provided Bible/devotional materials [] Provided toy/stuffed animal, coloring book to patient or family member [] Provided Communion [] Anointing/[place] [] Salvation [x] Completed spiritual assessment [] Other: Impact on Illness or Injury [] Angry [] Fearful [] Anxious [] Often cries [] Exhaustion [] Unable to work [] Unable to attend anabaptism [] Unable to walk/stand [] Unable to read [] Unable to drive [] Unable to eat/drink [] Unable to sleep [] Unable to be with family [] Patient intubated [] Other: Summary Time spent with patient
[2020-12-29] MEDS: pantoprazole DR 40 mg Tablet PO (09:18)
[2020-12-29] MEDS: polyethylene glycol 3350 Pkt 17 gm PO (09:18)
[2020-12-29] MEDS: cefepime 1,000 MG in sodium chloride 0.9% (plus) 50 ML 100 MG IV (09:18)
[2020-12-29] MEDS: bisacodyl 10 mg Supp PR (09:18)
--- NOTE | 2020-12-29 09:51 | PC.NURSE ---
Due to tidal volumes in the 600-700 range, nurse started increasing sedation. Titrating versed and precedex per protocol.
--- NOTE | 2020-12-29 09:57 | CT_ITS ---
WS: [id number] CTA OF THE CHEST WITH PULMONARY EMBOLISM PROTOCOL TECHNIQUE: High-resolution contrast enhanced CTA of the chest with coronal and sagittal reformatted i [facility] with pulmonary embolism protocol. MIP images are also reviewed. CLINICAL INFORMATION: covid, intubated, dvt COMPARISON: CTA December 17, 2020 DLP: 655.[address] scans at [facility] use at least one of these dose optimization techniques: automated e xposure control; mA and/or kV adjustment per patient size (includes targeted exams where dose is matc hed to clinical indication); or iterative reconstruction. FINDINGS: Endotracheal tube with tip above the jun. Enteric tube. Proximal main pulmonary arteries are ashleigh l. Normal segmental and subsegmental pulmonary arteries. No evidence of pulmonary embolus. Normal guille iber thoracic aorta. No mediastinal or hilar lymphadenopathy. Bilateral hazy ground glass infiltrates throughout both lungs similar to December 17, 2020 likely due to COVID 19 pneumonia. Compressive atelectasis in the lung bases. Infiltrates are not significantly c hange compared to previous. Adrenal glands are normal. Fatty atrophy of the pancreas. CT/CT angio chest PE protcl [id number] IMPRESSION: 1. No evidence of pulmonary embolus. 2. Diffuse bilateral groundglass infiltrates likely due to COVID 19 Pneumonia not significantly changed since December 17, 2020. 3. Compressive atelectasis in the lung bases. 4. Endotracheal tube with tip above the jun. 5. No other significant changes compared to previous.
[2020-12-29 10:43] LABS: Glucose Point of Care 338 mg/dL (70-110)
[2020-12-29] MEDS: insulin glargine 100 units/1 mL 30 UNIT SUBCUT ×2 (10:52→21:43)
[2020-12-29] MEDS: dexmedetomidine 400 MCG in sodium chloride 0.9% (100 ml) 100 ML 23.53 MCG IV ×2 (10:52→15:02)
[2020-12-29 10:54] LABS: Urine Appearance Cloudy (CLEAR); Urine Color Yellow (Yellow); pH Urine 5 (5-7)
[2020-12-29 10:55] LABS: Add Urine Microscopic? YES; Bilirubin Urine Neg (Negative); Blood Urine 3+ (Negative); Glucose Urine UA 4+ (Normal); Ketones Urine Negative (Negative); Leukocyte Esterase Urine Negative (Negative); Nitrate Urine Negative (Negative); Protein Urine Trace (Negative); Specific Gravity, Urine 1.015 (1.005-1.030); Urobilinogen Urine Norm (Negative)
[2020-12-29 10:57] LABS: C Reactive Protein 0.4 mg/L (0.0-4.9); Lactate Dehydrogenase 260 U/L (135-225); Thyroid Stimulating Hormone 1.35 uIU/mL (0.27-4.20)
[2020-12-29 10:58] LABS: NT Pro B Type Natriuretic Pept 160 pg/mL (0-125); Procalcitonin 0.13 ng/mL (0-0.5)
[2020-12-29] MEDS: zinc gluconate 50 mg Tablet PO (10:58)
[2020-12-29 11:09] LABS: Iron 97 ug/dL (59-158); Percent Saturation 46.8 % (20-50); Total Iron Binding Capacity 207 mcg/dl; Unsaturated Iron Binding 110 ug/dL (112-347)
[2020-12-29 11:11] LABS: Ferritin 2425 ng/mL (30-400)
[2020-12-29 11:24] LABS: RBC Urine TOO NUMEROUS TO CNT /hpf (0-2); Squamous Epithelial Cell Urine 0-4 /hpf (0-5)
[2020-12-29 11:25] LABS: Amorphous Sediment Urine TRACE /hpf; Bacteria Urine 1+ /hpf; Mucus Urine 1+ /hpf; Uric Acid Crystals Urine T /hpf
[2020-12-29 11:26] LABS: Add Urine Culture? Yes
[2020-12-29] MEDS: iohexol 350 mg/mL 100 mL Btl IV (14:34)
[2020-12-29] MEDS: artificial tears Op Oint 3.5 gm 1 APPLIC EYE-BOTH (15:00)
[2020-12-29] MEDS: propofol 1,000 MG/100 ML INJ 2.56 MG IV (15:01)
--- NOTE | 2020-12-29 15:35 | PM.PN ---
Subjective Subjective: Interval history: Hospital course, labs appreciated. Overnight patient's oxygen requirement has gone up. Currently on 75% FiO2 saturating 96%. Today morning was pulling higher tidal volumes so increased sedation. Currently on Versed 5, fentanyl 100, Precedex 1.2, Levophed 2. T-max last 24 hours going up to 102.5 Fahrenheit. Documented urine output 2100 and last 24 hours. Medications: Reviewed: Yes Vitals/I&O/Wt Last Vital Signs Temp 99.5 F 12/29/20 12:30 Pulse 87 12/29/20 13:00 Resp 23 H 12/29/20 12:31 BP 103/64 12/29/20 13:00 Pulse Ox 96 12/29/20 12:45 12/29/20 12/29/20 12/29/20 06:59 14:59 22:59 Intake Total 967.284 / 1820.900 974.200 / 974.200 137.539 / 1111.739 Output Total 600 / 2150 425 / 425 Balance 367.284 / -329.100 549.200 / 549.200 137.539 / 686.739 Weight last 48 hrs Weight 85.366 kg Weight 87.362 kg Physical Exam Const: COMMON NORMALS: no acute distress GENERAL APPEARANCE: patient mechanically ventilated ORIENTATION/CONSCIOUSNESS: Yes awake OTHER: Sedated HENMT: COMMON NORMALS: normocephalic and oropharynx normal HEAD & SCALP: normocephalic Neck/C-Spine: COMMON NORMALS: no JVD Resp: COMMON NORMALS: normal respiratory effort, No retractions, No use of accessory muscles and clear to auscultation bilaterally EFFORT & INSPECTION: Yes tachypneic AUSCULTATION: clear to auscultation bilaterally Cardio: COMMON NORMALS: no JVD, regular rate, regular rhythm, S1 normal heart sound present, S2 normal heart sound present and No murmurs present (Cardio) RATE: regular rate RHYTHM: regular rhythm HEART SOUNDS: S1 normal heart sound present and S2 normal heart sound present GI: COMMON NORMALS: Normal to inspection, nondistended, normoactive bowel sounds present, Soft to palpation and No hepatosplenomegaly present PALPATION: Yes Soft to palpation and Yes No hepatosplenomegaly present OTHER: L superolateral of umbilicus soft tissue lump above 3 x 5 cm, present previously Extremity: COMMON NORMALS: no joint enlargement and no pedal edema Neuro: COMMON NORMALS: moves all extremities Psych: COMMON NORMALS: mental status grossly normal Skin: COMMON NORMALS: no rashes or lesions noted GENERAL SKIN EXAM: no rashes or lesions noted Urinary Catheter Management^: Sloan: Cath Placed During This Visit: yes Reason for Continuing Indwelling Catheter: Accurate Measurement of Urinary Output in Critically Ill Patients Urinary Catheter Date of Insertion: 12/22/20 Urinary Catheter Time of Insertion: 14:01 Data : 12/29/20 02:50 12/29/20 02:50 Micro: Microbiology 12/28/20 12:33 Blood Culture - Preliminary Blood NEGATIVE TO DATE 12/28/20 10:03 Blood Culture - Preliminary Blood A&P Assessment and plan (1) Acute respiratory distress syndrome: Status: Acute (2) Pneumonia due to COVID-19 virus: This morning with acute respiratory acidosis with slight trend toward chronic respiratory acidosis with compensation, pH 7.3, CO2 60. PO2 overall gradually improving. Overnight respiratory rates recorded in the twenties. Tidal volume appears appropriate for ideal body weight. Minute ventilation appears mostly 12-13. Likely inadequately paralyzed working/overbreathing the vent overnight. Chest x-ray with persistent pneumonia in the lower lobes. Spiking fever this morning 103. Treating fever. Hypercapnia and also hyperkalemia. With acidosis. Worsening pressor requirement, norepinephrine up to 6. Dropping down tube feeds rate temporarily, but if not improving will need to get back to previous goal to supply calories he needs secondary to tachypnea, fever, etc. Please reassess again. Possibly increase catabolism secondary to steroid. Attempt to taper Decadron. Assess CK. Triglycerides were elevated, although should not be causing pancreatitis, but will check lipase. Continue to avoid propofol. Acute abdominal series XR, although abdomen is soft. Though has not had a bowel movement it appears since being in the hospital. Add bowel regimen. Periumbilical hernia noted, but not incarcerated on ultrasound. Consider CT if abdomen starts appearing concerning. Does not appear to have evidence of metabolic acidosis at this time. We are trying to wean down sedation for now to reassess mental status, although he is rather tachypneic, currently up to 29 breaths/min, becoming further tachypneic will need to be resedated and left the ventilator to the work. If persistently tachypneic possibly additional session of paralysis and possibly proning. Alternatively if improving and blood pressure hold steady, may allow him to blow some of the CO2 off on his own. We will again repeat ABG. Monitor respiratory rate. Pressor requirement. Updated his sister and discussed events over the previous days. COVID-19 pneumonia, possibly contribution of aspiration pneumonia with inadvertent extubation continue to reassess for other potential sources. Septic shock with persistent leukocytosis, fever, hypotension. Continue broadened antibiotic course with cefepime, vancomycin. Continue Decadron. Anticoagulation for DVT. Received monoclonal antibody this morning at [facility] reportedly Completed remdesivir Hold baricitinib received 3 doses, 1 dose Actemra duoneb q6h, budesonide q12h CTA chest negative for PE Reintubated after inadvertent extubation on 12/25. Urine culture without growth so far. Sloan exchanged on 11/24. Status: Acute (3) Respiratory failure with hypoxia: Status: Acute (4) DVT (deep venous thrombosis): Therapeutic Lovenox. Status: Acute (5) JAY (acute kidney injury): Renal function improving. Creatinine normalized. BUN improving. Hyperkalemia resolved. Sloan noted with partial obstruction, exchanged on 12/24. Status: Acute (6) Hyperkalemia: Resolved. No further Sloan obstruction noted so far since exchange. Kidney ultrasound okay. Some fluctuation potassium recently after acute kidney injury. JAY has been gradually improving. We will recheck potassium later this afternoon. On Nepro for tube feeds, but will be held for additional proning today. Status: Acute (7) Transaminitis: Mild. Monitor. Status: Acute Additional A&P Information Type 2 diabetes mellitus, moderate dose sliding scale, increase Lantus 22 every 12 Periumbilical lump: Hernia without evidence of incarceration on ultrasound. Incidentally noted 1.7 x 1.5 x 2.8 cm ovoid hypoechoic lesion along superior margin of the left kidney, likely a splenule. Plan for the day: Blood culture came back positive for gram-positive cocci. Repeat blood cultures. If repeat blood cultures positive will have to exchange lines. Sloan changed on 12/24 Given patient spiking high-grade fever overnight we will repeat blood cultures, urinalysis, urine culture, sputum culture. Switch cefepime to imipenem. MRSA negative but for now continue with vancomycin. Add fluconazole. Check CTA. Check inflammatory markers including CRP, LDH. Check CPK, proBNP. Switch sedation from Versed to propofol. Wean off Levophed keeping mean arterial pressure over 65. Strict input output charting. Lasix 40 mg IV stat. Have hypernatremia on chemistry today. Increase free water flushes to 200 every 6 hourly. Repeat BMP in evening. Vitamin C, zinc. DuoNebs every 4 hour, continue with budesonide, dexamethasone 3 mg daily. Blood sugars have been elevated. Increase Lantus to 30 units twice daily. Continue with full dose Lovenox. Tube feedings increase goal rate to 45 cc/h Tried calling patient's cniovjlr-hi-oyp Ms. Mariscal over the phone. We discussed regarding further goals of care. She would want patient's son to make those decisions. States he would call us later regarding same. Awaiting call. Attestations Medical Necessity Statement*: Requires further hospitalization for management of ARDS secondary to COVID-19 pneumonia, ventilator dependent Critical Care Time: The high probability of a clinically significant, sudden or life threatening deterioration of the patient's [pulmonology, ID] system(s) required my full and direct attention, intervention and personal management. The critical care time is as shown. 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
[2020-12-29] MEDS: fluconazole 100 mg Tablet 200 MG PO (15:47)
[2020-12-29 16:05] LABS: Vancomycin Trough 12.4 ug/mL (10-15)
--- NOTE | 2020-12-29 16:07 | PC.RESP ---
RT Shift Note Frequent safety and respiratory rounds continue. Orders completed as indicated. Patient monitored pre and post treatments throughout shift. Patient [Did.] tolerate treatments appropriately. Condition [.DidNotChange]. Patient and/or retail representative educated on respiratory treatment and medications. Patient and/or retail representative [UNABLE TO UNDERSTAND]. Will continue to monitor patient progress.
[2020-12-29] MEDS: FUROsemide 10 mg/mL SDV 4mL 40 MG IVP (16:18)
--- NOTE | 2020-12-29 16:23 | PC.NURSE ---
Vanc administration delayed. Waiting on vanc trough results.
[2020-12-29 16:31] LABS: Glucose Point of Care 291 mg/dL (70-110)
[2020-12-29] MEDS: ascorbic acid 500 mg Tablet PO (17:12)
[2020-12-29] MEDS: magnesium hydroxide 30 mL UDC PO (17:12)
--- NOTE | 2020-12-29 18:07 | PC.NURSE ---
Shidt summary: Overall, uneventful shift. Patient rested in bed throughout the day. Repositioned every 2 hours. Artificial tears applied to eyes. Patient was brought to radiology for a CT of the chest. Versed stopped and propofol was started. No bowel movement today but patient did pass gas and has active bowel sounds with no distention of the stomach. Urine output for the shift was 1175. Family has been updated.
--- NOTE | 2020-12-29 20:36 | PC.NURSE ---
Temperature Patient temperature of 101.4F. Ice packs applied to groin area and under arms. Additionally, room temperature was decreased while patient remains to be covered only with sheet. Temperature to be obtained again.
[2020-12-29 20:44] LABS: Glucose Point of Care 225 mg/dL (70-110)
[2020-12-29 21:47] LABS: Glucose Point of Care 275 mg/dL (70-110)
--- NOTE | 2020-12-29 22:14 | PC.NURSE ---
Cough Patient intermittently has a strong cough. While coughing, patient's vent PIP increased causing vent to alarm for high pressure. Patient suctioned and RT alerted. Vital signs within normal range. Sedation titrated per APR.
[2020-12-30] VITALS (109 sets, daily range): BP systolic 78–137; BP diastolic 48–85; PULSE 57–105; RESP 21–28; TEMP 36.9–38.1; O2SAT 84–96; BMI 27.6
[2020-12-30] MEDS: propofol 1,000 MG/100 ML INJ 12.81 MG IV ×3 (01:14→17:54)
--- NOTE | 2020-12-30 02:30 | PC.NURSE ---
Cough Patient experienced coughing episode in which patient's vent high pressure alarm went off several times and patient's oxygen saturation dropped to 87. Patient's ET tube suctioned, bloody sputum resulting. Respiratory therapist called to bedside. Vent settings not changed. Coughing spontaneously subsided which corrected vent pressure and increased patient oxygen saturation to 90 at 0254. Oxygen saturation remains to be in the 90s, all other vitals stable.
[2020-12-30] MEDS: ipratropium-albuterol 3 mL Neb INHALATION ×6 (03:09→23:30)
--- NOTE | 2020-12-30 03:09 | PC.NURSE ---
Lovenox Patient noted to have hematuria and blood tinged sputum. Dr. Farrar notified of findings and of DVT found on 12/23/20. Last hemoglobin 15/ hematocrit 47.5. Orders received to hold morning dose of Lovenox. Lovenox not administered.
[2020-12-30] MEDS: vancomycin 1,500 MG/300 ML PIGGYBACK 200 MG IV ×2 (03:12→16:28)
[2020-12-30] MEDS: dexamethasone 4 mg/mL INJ 3 MG IVP (03:12)
[2020-12-30 03:16] LABS: ABG PCO2 49.5 mmHg (35-45); ABG PH Result 7.43 (7.35-7.45); Alveolar-Arterial Oxygen Gradi 40.3 mmHg (5-10); Arterial Blood Gas Hematocrit 41.1 % (42-52); Blood Gas Allen Test Pos; Blood Gas Sample Site Radial, right; Blood Gas Sample Type Arterial; Blood Gas Tidal Volume 0.45; Carboxyhemoglobin 0.9 %THgb (0.4-20.1); HCO3 ABG 32.7 mmol/L (22-26); HGB O2 Sat 92.3 % (95-100); Ionized Calcium Level - ABG 1.3 mmol/L (1.1-1.4); Methemoglobin 0.9 % (0.4-1.5); Oxygen Device VENT; Oxygen Saturation ABG 93.9; PO2 ABG 63.3 mmHg (80.0-100.0); Potassium Level - ABG 4.4 mmol/L (3.5-5.0); Total Hemoglobin 13.4 g/dL (14-18)
[2020-12-30] MEDS: dexmedetomidine 400 MCG in sodium chloride 0.9% (100 ml) 100 ML 21.18 MCG IV ×3 (03:43→21:33)
--- NOTE | 2020-12-30 04:20 | PC.NURSE ---
Bloody Sputum Amount of bloody sputum being suctioned out of ET tube increased. Dr. Farrar notified, no new orders received at this time. Total amount suctioned for this shift 50 ml.
[2020-12-30 05:07] LABS: Basophils # 0.1 10^3/uL (0.0-0.1); Basophils % 0.3 %; Eosinophils % 0.3 %; Hematocrit 41.4 % (42.0-52.0); Hemoglobin 12.8 g/dL (11.7-16.6); Lymphocytes # 0.7 10^3/uL (0.8-4.8); Lymphocytes % 4.1 %; Mean Corpuscular HGB Conc 30.9 g/dL (30.0-36.0); Mean Corpuscular Hemoglobin 29.9 pg (28.0-34.0); Mean Corpuscular Volume 96.7 fl (80-94); Mean Platelet Volume 10.7 fL (7.4-10.4); Monocytes # 0.8 10^3/uL (0.2-0.9); Neutrophils # 14.28 10^3/uL (1.8-7.7); Neutrophils % 89.7 %; Nucleated Red Blood Cells % 0.1 %; Platelet Count 175 10^3/cmm (130-400); Red Blood Count 4.28 10^6/uL (4.1-5.3); Red Cell Distribution Width 12.8 % (12.1-15.1); White Blood Count 15.9 10^3/uL (4.0-10.0)
[2020-12-30 05:17] LABS: D Dimer 1.04 ug/mIFEU (0-0.59)
[2020-12-30 05:25] LABS: Alanine Aminotransferase 27 U/L (0-41); Albumin Level 3.1 g/dL (3.5-5.2); Alkaline Phosphatase 46 IU/L (40-130); Anion Gap 10.4 (5-19); Aspartate Amino Transferase 11 U/L (0-40); Blood Urea Nitrogen 50 mg/dL (8-23); Carbon Dioxide 30 mmol/L (22-29); Chloride 109 mmol/L (98-107); Glomerular Filtration Rate 114.3 mL/min (90-130); Glucose 307 mg/dL (65-115); Osmolality Calculated 325 mOsm/kg (285-295); Potassium 4.4 mmol/L (3.5-5.1); Sodium 145 mmol/L (136-145); Total Bilirubin 0.6 mg/dL (0.15-1.2); Total Protein 5.1 g/dL (6.6-8.7)
[2020-12-30 05:27] LABS: C Reactive Protein 0.6 mg/L (0.0-4.9); Chol HDL Ratio 7.08 mg/dL (1.0-5.00); Cholesterol 177 mg/dL (0-200); HDL Cholesterol 25 mg/dL (60-100); Triglycerides 533 mg/dL (0-150); VLDL Cholestrol Calculation 107 mg/dL (0-30)
[2020-12-30 05:36] LABS: Estmated Average Glucose 194; Hemoglobin A1C 8.4 % (4.0-6.0)
[2020-12-30 06:19] LABS: LDL Cholesterol Direct 75 mg/dL (0-100)
--- NOTE | 2020-12-30 06:41 | PC.NURSE ---
Shift Note Frequent safety and comfort rounds continue. Orders and/or nursing care completed as indicated. Patient monitored for response to intervention and treatment(s). Education provided includes results of recent tests, activities/bathing, and infection prevention. Patient remains to be intubated/sedated and is unable to comprehend teaching. Will continue to monitor.
[2020-12-30] MEDS: budesonide 0.5 mg/2 mL Neb INHALATION ×2 (07:56→19:42)
[2020-12-30 08:18] LABS: Glucose Point of Care 349 mg/dL (70-110)
[2020-12-30] MEDS: zinc gluconate 50 mg Tablet PO (08:24)
[2020-12-30] MEDS: fluconazole 100 mg Tablet 200 MG PO (08:24)
[2020-12-30] MEDS: insulin lispro 100 unit/1 mL SUBCUT ×4 (08:24→20:43)
[2020-12-30] MEDS: polyethylene glycol 3350 Pkt 17 gm PO (08:24)
[2020-12-30] MEDS: pantoprazole DR 40 mg Tablet PO (08:24)
[2020-12-30] MEDS: magnesium hydroxide 30 mL UDC PO ×2 (08:24→17:53)
[2020-12-30] MEDS: ascorbic acid 500 mg Tablet PO ×2 (08:25→17:53)
[2020-12-30] MEDS: dexmedetomidine 400 MCG in sodium chloride 0.9% (100 ml) 100 ML 18.82 MCG IV (09:46)
[2020-12-30] MEDS: insulin glargine 100 units/1 mL 30 UNIT SUBCUT ×2 (09:46→22:22)
[2020-12-30] MEDS: acetaminophen 325 mg Tablet 650 MG PO (10:05)
[2020-12-30 10:51] LABS: Procalcitonin 0.12 ng/mL (0-0.5)
[2020-12-30] MEDS: bisacodyl 10 mg Supp PR (11:31)
[2020-12-30 13:09] LABS: Glucose Point of Care 238 mg/dL (70-110)
--- NOTE | 2020-12-30 14:42 | PM.PN ---
Subjective Subjective: Interval history: Overnight patient had bloody secretions through ET tube for which Lovenox was withheld. Arterial pressure has remained over 70 but patient remains on Levophed of 4 for septic shock. Currently on propofol of 40, Precedex of 0.8 and fentanyl of 25. ABG results appreciated with pH of 7.4, PCO2 of 49, PO2 of 63 on AC VC mode, FiO2 60%, tidal volume 450 with PEEP of 10. Documented urine output yesterday around 2.4 L. Patient has remained persistently febrile with T-max of 101 yesterday evening and 100.4 today morning. Medications: Reviewed: Yes Vitals/I&O/Wt Last Vital Signs Temp 100.3 F H 12/30/20 12:30 Pulse 70 12/30/20 13:15 Resp 28 H 12/30/20 13:51 BP 98/59 12/30/20 13:15 Pulse Ox 93 12/30/20 13:51 12/29/20 12/30/20 12/30/20 22:59 06:59 14:59 Intake Total 1094.334 / 2068.534 1556.351 / 3624.885 204 / 204 Output Total 750 / 1175 1225 / 2400 950 / 950 Balance 344.334 / 893.534 331.351 / 1224.885 -746 / -746 Weight last 48 hrs Weight 87.498 kg Weight 85.366 kg Physical Exam Const: COMMON NORMALS: no acute distress GENERAL APPEARANCE: patient mechanically ventilated ORIENTATION/CONSCIOUSNESS: Yes awake OTHER: Sedated HENMT: COMMON NORMALS: normocephalic and oropharynx normal HEAD & SCALP: normocephalic Neck/C-Spine: COMMON NORMALS: no JVD Resp: COMMON NORMALS: normal respiratory effort, No retractions, No use of accessory muscles and clear to auscultation bilaterally EFFORT & INSPECTION: Yes tachypneic AUSCULTATION: clear to auscultation bilaterally Cardio: COMMON NORMALS: no JVD, regular rate, regular rhythm, S1 normal heart sound present, S2 normal heart sound present and No murmurs present (Cardio) RATE: regular rate RHYTHM: regular rhythm HEART SOUNDS: S1 normal heart sound present and S2 normal heart sound present GI: COMMON NORMALS: Normal to inspection, nondistended, normoactive bowel sounds present, Soft to palpation and No hepatosplenomegaly present PALPATION: Yes Soft to palpation and Yes No hepatosplenomegaly present OTHER: L superolateral of umbilicus soft tissue lump above 3 x 5 cm, present previously Extremity: COMMON NORMALS: no joint enlargement and no pedal edema Neuro: COMMON NORMALS: moves all extremities Psych: COMMON NORMALS: mental status grossly normal Skin: COMMON NORMALS: no rashes or lesions noted GENERAL SKIN EXAM: no rashes or lesions noted Urinary Catheter Management^: Sloan: Cath Placed During This Visit: yes Reason for Continuing Indwelling Catheter: Accurate Measurement of Urinary Output in Critically Ill Patients Urinary Catheter Date of Insertion: 12/22/20 Urinary Catheter Time of Insertion: 14:01 Data : 12/30/20 04:35 12/30/20 04:35 Micro: Microbiology 12/28/20 10:03 Blood Culture - Preliminary Blood Staphylococcus aureus 12/29/20 15:50 Gram Stain - Final Sputum - Endotracheal Tube Aspirate Sputum Culture - Preliminary Staphylococcus aureus 12/29/20 10:21 Urine Culture - Preliminary Urine,Clean Catch 12/29/20 22:12 Blood Culture - Preliminary Blood SPECIMEN COLLECTED 12/29/20 22:06 Blood Culture - Preliminary Blood SPECIMEN COLLECTED 12/29/20 10:21 MRSA Culture - Final Nose 12/28/20 12:33 Blood Culture - Preliminary Blood NEGATIVE TO DATE A&P Assessment and plan (1) Septic shock: Status: Acute (2) Bacteremia due to Staphylococcus: Status: Acute (3) Staphylococcal pneumonia: Status: Acute (4) Acute respiratory distress syndrome: Status: Acute (5) Pneumonia due to COVID-19 virus: This morning with acute respiratory acidosis with slight trend toward chronic respiratory acidosis with compensation, pH 7.3, CO2 60. PO2 overall gradually improving. Overnight respiratory rates recorded in the twenties. Tidal volume appears appropriate for ideal body weight. Minute ventilation appears mostly 12-13. Likely inadequately paralyzed working/overbreathing the vent overnight. Chest x-ray with persistent pneumonia in the lower lobes. Spiking fever this morning 103. Treating fever. Hypercapnia and also hyperkalemia. With acidosis. Worsening pressor requirement, norepinephrine up to 6. Dropping down tube feeds rate temporarily, but if not improving will need to get back to previous goal to supply calories he needs secondary to tachypnea, fever, etc. Please reassess again. Possibly increase catabolism secondary to steroid. Attempt to taper Decadron. Assess CK. Triglycerides were elevated, although should not be causing pancreatitis, but will check lipase. Continue to avoid propofol. Acute abdominal series XR, although abdomen is soft. Though has not had a bowel movement it appears since being in the hospital. Add bowel regimen. Periumbilical hernia noted, but not incarcerated on ultrasound. Consider CT if abdomen starts appearing concerning. Does not appear to have evidence of metabolic acidosis at this time. We are trying to wean down sedation for now to reassess mental status, although he is rather tachypneic, currently up to 29 breaths/min, becoming further tachypneic will need to be resedated and left the ventilator to the work. If persistently tachypneic possibly additional session of paralysis and possibly proning. Alternatively if improving and blood pressure hold steady, may allow him to blow some of the CO2 off on his own. We will again repeat ABG. Monitor respiratory rate. Pressor requirement. Updated his sister and discussed events over the previous days. COVID-19 pneumonia, possibly contribution of aspiration pneumonia with inadvertent extubation continue to reassess for other potential sources. Septic shock with persistent leukocytosis, fever, hypotension. Continue broadened antibiotic course with cefepime, vancomycin. Continue Decadron. Anticoagulation for DVT. Received monoclonal antibody this morning at [facility] reportedly Completed remdesivir Hold baricitinib received 3 doses, 1 dose Actemra duoneb q6h, budesonide q12h CTA chest negative for PE Reintubated after inadvertent extubation on 12/25. Urine culture without growth so far. Sloan exchanged on 11/24. Status: Acute (6) Respiratory failure with hypoxia: Status: Acute (7) DVT (deep venous thrombosis): Therapeutic Lovenox. Status: Acute (8) JAY (acute kidney injury): Renal function improving. Creatinine normalized. BUN improving. Hyperkalemia resolved. Sloan noted with partial obstruction, exchanged on 12/24. Status: Acute (9) Hyperkalemia: Resolved. No further Sloan obstruction noted so far since exchange. Kidney ultrasound okay. Some fluctuation potassium recently after acute kidney injury. JAY has been gradually improving. We will recheck potassium later this afternoon. On Nepro for tube feeds, but will be held for additional proning today. Status: Acute (10) Transaminitis: Mild. Monitor. Status: Acute Additional A&P Information Type 2 diabetes mellitus, moderate dose sliding scale, increase Lantus 22 every 12 Periumbilical lump: Hernia without evidence of incarceration on ultrasound. Incidentally noted 1.7 x 1.5 x 2.8 cm ovoid hypoechoic lesion along superior margin of the left kidney, likely a splenule. Plan for the day: Septic shock/Staph bacteremia and Staphylococcus pneumonia: Remove central line. Will request for midline. Repeat blood cultures sent yesterday. We will continue to follow. Blood cultures from 12/28 2 out of 3 bottles positive for coccus, sputum culture positive for Staphylococcus urine culture positive for yeast. Continue with vancomycin, imipenem, fluconazole. Triglycerides elevated more than 500. We will try to wean down propofol and if possible transition over to Versed if triglycerides continue to remain elevated for next 48 hours. For now try to increase Precedex and fentanyl while weaning off propofol to maintain sedation. Continue to monitor inflammatory markers. For hemoptysis continue to hold off on Lovenox. Case discussed with Dr. Luong from pulmonology. Depending on goals of care discussion with family will consider bronchoscopy if patient continues to have hemoptysis. For septic shock try to wean Levophed giving mean arterial pressure over 65. Hold off on any Lasix today given septic shock and borderline blood pressures. Keep saturation over 90%. We will have further goals of care discussion with patient's son Mr. Logan today. Yesterday we discussed regarding further goals of care given patient being ventilator dependent for last 7 days, increasing oxygen supplementation, septic shock with requirement of Levophed, persistent febrile and blood culture positive for Staphylococcus. We discussed possible need of trach and PEG for protracted slow recovery going forward if possible versus comfort measures status. Mr. Logan is going to confer with his family members and get back to us regarding the goals. Attestations Medical Necessity Statement*: Requires further hospitalization for management of septic shock, Staphylococcus pneumonia with underlying COVID-19 pneumonia, ARDS, ventilator dependent Critical Care Time: The high probability of a clinically significant, sudden or life threatening deterioration of the patient's [pulmonology, cardiac, ID] system(s) required my full and direct attention, intervention and personal management. The critical care time is as shown. 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
--- NOTE | 2020-12-30 14:49 | PC.NURSE ---
Midline placed by Nurse Shay and Nurse Chino from laboratory [facility]. Central line was removed and pressure held for 15 minutes. Dressed site with tegaderm and gauze. Catheter tip sent to lab for culture.
--- NOTE | 2020-12-30 16:10 | XRR_ITS ---
PROCEDURE INFORMATION: Exam: XR Chest Exam date and time: 12/30/2020 4:10 PM Age: 60 years old Clinical indication: Other: Increased o2 requirements TECHNIQUE: Imaging protocol: XR of the chest. Views: 1 view. COMPARISON: CR (CHEST, ) 12/29/2020 5:33 AM FINDINGS: Tubes, catheters and devices: Endotracheal tube tip in place 3 cm above the jun. Enteric tube tip below the left diaphragm over the gastric bubble. Lungs: Bibasilar atelectasis versus infiltrate, similar to prior exam. Pleural spaces: Unremarkable. No pleural effusion. No pneumothorax. Heart/Mediastinum: Unremarkable. No cardiomegaly. Bones/joints: Unremarkable. XR/XR chest 1V portable [id number] IMPRESSION: 1. Endotracheal tube tip in place 3 cm above the jun. 2. Enteric tube tip below the left diaphragm over the gastric bubble. 3. Bibasilar atelectasis versus infiltrate, similar to prior exam. Radiation Dose CTDIVOL = (mGy): DLP = (mGy-cm)
--- NOTE | 2020-12-30 16:41 | PC.NURSE ---
Sudden change in patient condition noted. Patient is now tachycardic in the low 100's (previsouly in the 60's) Systolic pressure now 124 with not levophed when it was previosuly in the 90's on 4mcg of levophed. Respiratory rate in the low 30's, tidal volumes in the 700's. Saturation decreased form the mid 90's to the mid 80's. Nurse suctioned patient and got this blood streaked secretions which were present earlier, repositioned patient form left side lying to supine, checked tube and it remains 27 @ the lip. 100% FIO2 given to patient. Nurse alerted RT and Dr Garza. RT was able to perform more thorough and deeper suction. Removed thicker sputum. HR is now 85, pressure returned to previous 90's systolic, respiratory rate returned to the mid 20's, and tidal volumes returned to the 400-500's. However, patient is now requiring 80% FIO2 whereas before he required 60%. Chest Xray completed per Dr garza order.
--- NOTE | 2020-12-30 17:28 | PC.NURSE ---
DPOA: Rich rodrigues sechrest: [phone]
[2020-12-30 17:58] LABS: Glucose Point of Care 314 mg/dL (70-110)
--- NOTE | 2020-12-30 18:32 | PC.NURSE ---
Per Dr hassan, a bronchoscopy is planned for linda (12/31/2020). Nurse called son Desmond and got verbal consent over the phone. Another nurse witnessed. COnsent in physical chart.
--- NOTE | 2020-12-30 19:02 | PC.NURSE ---
Titrations Upon assessment of patient, Fentanyl running at 100 mcg/hr and propofol running at 35 mcg/kg/min while MAR displayed fentanyl at 50 mcg/hr and propofol at 25 mcg/kg/min. MAR updated to show actual administration rate.
--- NOTE | 2020-12-30 19:04 | PC.NURSE ---
Shift Summary: Most of today was uneventful, with the patient resting in bed throughout the day. Central line removed and tip sent for culture. Midline placed in right upper arm. Patient has tolerated tube feeding well with residuals around 10-20 mL while getting 45mL/hr tube feeds and 200mL flushes Q6. Around 1600, patient desaturated, became tachypnic, tachycardic, and work of breathing increased. Inline suction removed thick bloody sputum and the patient recovered, but now requires an FIO2 of 70% to have a saturation above 90%. Previously a 60% FIO2 was needed. Family has been updated and a bronchoscopy is scheduled for tomorrow. Consent is in the chart. Day shift 12/30/2020 urine output was 1400mL. Sloan catheter will be in place for 9 days on 12/31/2020. Patient still has not had a bowel movement despite recent increases to bowel regimen.
[2020-12-30 20:27] LABS: Glucose Point of Care 291 mg/dL (70-110)
--- NOTE | 2020-12-30 21:37 | PC.NURSE ---
Change Patient's oxygen saturation maintaining 85-87, HR in the 90s, BP systolic 137 on levophed 4 mcg/kg/min, with tidal volumes ranging from 500-700. Nurse performed in line suction on patient revealing no secretions. RT at bedside. RT performed additional suctioning, along with increasing FIO2 to 100%. Sedation titrated per APR. Patient's oxygen saturation now 94, HR 76.
[2020-12-30 22:28] LABS: Glucose Point of Care 304 mg/dL (70-110)
[2020-12-30] MEDS: propofol 1,000 MG/100 ML INJ 17.93 MG IV (23:20)
[2020-12-31] VITALS (74 sets, daily range): BP systolic 90–138; BP diastolic 47–67; PULSE 56–100; RESP 18–24; TEMP 36.7–39.2; O2SAT 89–100; BMI 27.8
[2020-12-31] MEDS: ipratropium-albuterol 3 mL Neb INHALATION ×4 (03:15→20:29)
[2020-12-31] MEDS: dexamethasone 4 mg/mL INJ 3 MG IVP (04:15)
[2020-12-31] MEDS: vancomycin 1,500 MG/300 ML PIGGYBACK 200 MG IV (04:16)
[2020-12-31] MEDS: dexmedetomidine 400 MCG in sodium chloride 0.9% (100 ml) 100 ML 21.18 MCG IV ×3 (04:16→15:36)
[2020-12-31] MEDS: propofol 1,000 MG/100 ML INJ 17.93 MG IV (04:55)
[2020-12-31 05:02] LABS: Basophils % 0.3 %; Eosinophils # 0.1 10^3/uL (0.0-0.8); Eosinophils % 0.9 %; Hematocrit 39.1 % (42.0-52.0); Hemoglobin 12.2 g/dL (11.7-16.6); Lymphocytes # 0.9 10^3/uL (0.8-4.8); Mean Corpuscular HGB Conc 31.2 g/dL (30.0-36.0); Mean Corpuscular Hemoglobin 30.2 pg (28.0-34.0); Mean Corpuscular Volume 96.8 fl (80-94); Mean Platelet Volume 11.2 fL (7.4-10.4); Monocytes # 0.6 10^3/uL (0.2-0.9); Monocytes % 5.9 %; Neutrophils # 9.24 10^3/uL (1.8-7.7); Neutrophils % 84.4 %; Nucleated Red Blood Cells % 0 %; Platelet Count 136 10^3/cmm (130-400); Red Blood Count 4.04 10^6/uL (4.1-5.3); Red Cell Distribution Width 12.6 % (12.1-15.1); White Blood Count 10.9 10^3/uL (4.0-10.0)
[2020-12-31 05:31] LABS: Triglycerides 847 mg/dL (0-150)
[2020-12-31 05:38] LABS: Procalcitonin 0.16 ng/mL (0-0.5)
--- NOTE | 2020-12-31 05:38 | PC.NURSE ---
Shift Note Frequent safety and comfort rounds continue. Orders and/or nursing care completed as indicated. Patient monitored for response to intervention and treatment(s). Education provided includes sedation medication. Patient needs further reinforcement. Sloan catheter drained 800 mls overnight. Tube feeding infusing in OG tube at a rate of 45 mls/hr with 200 ml free water flushes every 6 hours. Overall intake overnight totaled 717 including tube feeding and free water flush. Vent settings are as follows; FiO2-45%, VT-450, rate-20, PEEP-10. Patient continues to have bloody sputum from ET tube. Right upper arm midline infusing Precedex, Levophed, Fentanyl, and Propofol. Please see MAR for infusion rates. Oral care performed Q2 hrs. Right cheek on the face has a pressure injury that is open to air. Will continue to monitor.
[2020-12-31 05:49] LABS: Alanine Aminotransferase 19 U/L (0-41); Albumin Level 3.1 g/dL (3.5-5.2); Alkaline Phosphatase 51 IU/L (40-130); Blood Urea Nitrogen 40 mg/dL (8-23); Calcium 8.9 mg/dL (8.5-10.5); Carbon Dioxide 27 mmol/L (22-29); Chloride 107 mmol/L (98-107); Glomerular Filtration Rate 168.5 mL/min (90-130); Glucose 283 mg/dL (65-115); Osmolality Calculated 320 mOsm/kg (285-295); Sodium 145 mmol/L (136-145); Total Bilirubin 0.6 mg/dL (0.15-1.2); Total Protein 5.1 g/dL (6.6-8.7)
[2020-12-31 05:51] LABS: Anion Gap 15.4 (5-19); Potassium 4.4 mmol/L (3.5-5.1)
[2020-12-31 05:52] LABS: Aspartate Amino Transferase 11 U/L (0-40)
[2020-12-31 06:34] LABS: LDL Cholesterol Direct 33 mg/dL (0-100)
[2020-12-31 07:41] LABS: Glucose Point of Care 298 mg/dL (70-110)
[2020-12-31] MEDS: budesonide 0.5 mg/2 mL Neb INHALATION (08:23)
[2020-12-31] MEDS: propofol 1,000 MG/100 ML INJ 25.61 MG IV ×2 (08:33→11:42)
[2020-12-31] MEDS: fluconazole 100 mg Tablet 200 MG PO (08:46)
[2020-12-31] MEDS: magnesium hydroxide 30 mL UDC PO ×2 (08:46→17:07)
[2020-12-31] MEDS: ascorbic acid 500 mg Tablet PO (08:46)
[2020-12-31] MEDS: bisacodyl 10 mg Supp PR (08:46)
[2020-12-31] MEDS: zinc gluconate 50 mg Tablet PO (08:46)
[2020-12-31] MEDS: insulin lispro 100 unit/1 mL SUBCUT ×4 (08:47→20:49)
[2020-12-31] MEDS: pantoprazole DR 40 mg Tablet PO (08:48)
[2020-12-31] MEDS: insulin glargine 100 units/1 mL 30 UNIT SUBCUT ×2 (09:41→21:58)
--- NOTE | 2020-12-31 09:50 | PC.CHAP ---
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 visit [] Patient/Family/Request visit [] Outpatient visit [] Follow-up visit [] Physician referral [] Code/Alert [x] Routine visit [] Staff referral [] Actively dying [] Patient sleeping [] Family support [] [] Out of room [] Palliative care [] [] Receiving care in room [] Pre-surgical visit [] Trauma [] Long length of stay [x] ICU visit [x] Other: covid Relational/Emotional Strength [] Patient feels connected with others/family/visitors/staff [] Distress [] Loneliness/isolation [] Abandonment Spirituality of Patient [] Person of Elvia [] Attends Jewish of their Elvia [] Believes in Prayer [] Reads Bible or Tenriism materials [] There are Spiritual issues to be addressed 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 [x] Prayer [] Active listening [] Non-anxious presence [] Spiritual/emotional support [] Crisis/trauma care [] Spiritual counseling [] Bereavement support [] Provided bereavement packet [] Provided Bible/devotional materials [] Provided toy/stuffed animal, coloring book to patient or family member [] Provided Communion [] Anointing/[place] [] Salvation [x] Completed spiritual assessment [] Other: Impact on Illness or Injury [] Angry [] Fearful [] Anxious [] Often cries [] Exhaustion [] Unable to work [] Unable to attend shinto [] Unable to walk/stand [] Unable to read [] Unable to drive [] Unable to eat/drink [] Unable to sleep [] Unable to be with family [] Patient intubated [] Other: Summary Time spent with patient
[2020-12-31 12:06] LABS: Glucose Point of Care 285 mg/dL (70-110)
[2020-12-31] MEDS: lidocaine 1% INJ 20 mL XX (13:18)
[2020-12-31] MEDS: succinylcholine 20 mg/mL SDV 10mL 100 MG IVP (13:19)
--- NOTE | 2020-12-31 13:55 | XR_ITS ---
WS: [id number] Portable AP upright chest, 12/31/2020 Clinical Data: post bronchoscopy Comparison: Portable chest, prescribed yesterday. Findings: The endotracheal tube and gastroenteric tube remain in same position. There are patchy bila teral lower lobe pulmonary opacities which have increased slightly compared to yesterday. The heart i s normal. No nodules, masses or effusions are seen. There are monitor leads on the chest wall. XR/XR chest 1V portable [id number] Impression: 1. Endotracheal tube and nasogastric tube in good position. 2. Increase in bibasilar pulmonary opacities.
--- NOTE | 2020-12-31 14:04 | P.PN_ITS ---
Subjective Subjective: Interval history: The patient was seen and examined. He is intubated and sedated. Continues to have bloody secretion through the ET tube. His oxygen requirement has come down to 45%. He is on a small dose of pressor. Currently sedated with propofol fentanyl and Precedex. Blood culture and endotracheal aspirate culture is positive for MSSA sensitive to imipenem. Bronchoscopic evaluation revealed mild quantity of blood in bilateral airways. No active bleeding. The bronchoalveolar lavage was not bloody. Medications: Reviewed: Yes Vitals/I&O/Wt Last Vital Signs Temp 98.5 F 12/31/20 12:00 Pulse 56 L 12/31/20 12:00 Resp 22 H 12/31/20 12:34 BP 106/54 12/31/20 12:00 Pulse Ox 89 L 12/31/20 12:34 12/30/20 12/31/20 12/31/20 22:59 06:59 14:59 Intake Total 1852.600 / 2410.600 1487.187 / 3897.787 879.934 / 879.934 Output Total 450 / 1400 800 / 2200 850 / 850 Balance 1402.600 / 1010.600 687.187 / 1697.787 29.934 / 29.934 Weight last 48 hrs Weight 194 lb Weight 192 lb 14.4 oz Physical Exam Narrative: EXAM NARRATIVE: General: Patient is intubated and sedated Neck: No JVD Respiratory: Auscultation: Reduced breath sound bilaterally, crackles at lung bases Cardiovascular: Regular rate and rhythm, S1-S2 present, no murmur, no peripheral edema. Abdomen: Soft, nondistended, positive bowel sound Skin: No rash Neuro: Unable to assess Urinary Catheter Management^: Sloan: Cath Placed During This Visit: yes Reason for Continuing Indwelling Catheter: Accurate Measurement of Urinary Output in Critically Ill Patients Urinary Catheter Date of Insertion: 12/22/20 Urinary Catheter Time of Insertion: 14:01 Data : 12/31/20 04:44 12/31/20 04:44 Micro: Microbiology 12/29/20 15:50 Gram Stain - Final Sputum - Endotracheal Tube Aspirate Sputum Culture - Final Staphylococcus aureus 12/28/20 10:03 Blood Culture - Preliminary Blood Staphylococcus aureus 12/30/20 13:45 Catheter Tip Culture - Preliminary Central Line 11/01/21 10:21 Urine Culture - Preliminary Urine,Clean Catch Yeast species 12/29/20 22:12 Blood Culture - Preliminary Blood NEGATIVE TO DATE 12/29/20 22:06 Blood Culture - Preliminary Blood NEGATIVE TO DATE Attestation for Other Data: I personally reviewed and interpreted the following: Other data: I have reviewed the patient's laboratory microbiologic and radiologic data. The leukocytosis is improving. Improvement in BUN, creatinine stable. A&P Assessment and plan (1) Staphylococcal pneumonia: The patient is growing MSSA from blood and the lung. His leukocytosis has improved. Pressor requirement has come down. I am going to discontinue the dexamethasone. I will continue with the imipenem and discontinue the vancomycin. Status: Acute (2) Bacteremia due to Staphylococcus: The central line was removed and the patient has a midline catheter now. Status: Acute (3) Acute respiratory distress syndrome: Fortunately, his oxygen requirement has come down. Currently the patient is on volume control FiO2 of 45%. Chest x-ray revealed bibasilar infiltrate more on the left side. This is likely secondary to the MSSA pneumonia. We are hoping that the oxygen requirement would come down and the patient will be able to get extubated in the near future. The patient did have a mental status. For sedation, I am going to discontinue the propofol as the triglyceride level is more than 800. We will continue with fentanyl, Precedex and Versed push. Status: Acute (4) Pneumonia due to COVID-19 virus: The patient has completed 10-day course of dexamethasone. We will continue with imipenem for the time being. Bronchoscopy today revealed mild airway bleeding. No clot or significant active bleeding was noted. Status: Acute (5) DVT (deep venous thrombosis): The full dose anticoagulation was discontinued because of active bleeding. At this point, I am resuming subcu heparin for DVT prophylactic dose. Once the bleeding stops, I will consider starting the patient on heparin drip. Status: Acute (6) Septic shock: This is likely secondary to MSSA bacteremia. The pressor requirement is coming down. 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
[2020-12-31] MEDS: enoxaparin 40 mg/0.4 mL Syringe SUBCUT (14:27)
--- NOTE | 2020-12-31 15:06 | PM.ACPR ---
Procedure/Consent Time out: Time Out Performed: Yes Consent: Consent for Procedure: Consent obtained from other (indicate) (Son) Procedure Narrative: Name of the procedure: Bronchoscopy with inspection of the airway, possible airway clearance. Indication: Acute hypoxic respiratory failure in the setting of severe COVID-19. Medication: The patient is on intravenous fentanyl, propofol and Precedex drip. Description of the procedure: Consent was obtained for the bronchoscopy procedure. The patient was intubated for acute hypoxic respiratory failure. 1% lidocaine 5 mL was introduced through the ET tube. The bronchoscope was as far advanced through the ET tube to lower trachea was visualized. Mild bleeding without any active bleeding was noted in the lower part of the trachea and jun. In a systematic manner bilateral airways were then examined. The bronchoscope was introduced in the right mainstem bronchus. The right upper lobe, middle lobe and lower lobe bronchi were examined up to the third subsegmental level. No active bleeding was noted however small quantity of blood was noted throughout the airways. No mucous plug was identified. The bronchoscope was introduced into the left mainstem bronchus. The left upper lobe, lingula and lower lobe bronchi were examined up to the third subsegmental level.no endobronchial lesion, mucous plug was identified but the patient had diffuse small quantity of bleeding. A bronchoalveolar lavage was performed from the medial segment of the right middle lobe. 60 cc of fluid was administered, fluid return was 30 mL. The fluid was cloudy. No active bleeding was noted. Specimen was sent for Gram stain and culture. Complications: No immediate complication was noted. Postprocedure chest x-ray revealed no pneumothorax. Acute Procedures Epistaxis Control: Time out performed: Yes
[2020-12-31] MEDS: midazolam 1 mg/mL INJ 2 mL 2 MG IVP ×7 (15:37→22:58)
[2020-12-31] MEDS: acetaminophen 325 mg Tablet 650 MG PO (16:21)
[2020-12-31 17:03] LABS: Glucose Point of Care 300 mg/dL (70-110)
[2020-12-31] MEDS: neomycin-poly-bacitracin oint 28 gm 1 APPLIC TOPICAL (17:07)
--- NOTE | 2020-12-31 18:14 | PM.PN ---
Subjective Subjective: Interval history: Remained on vent, on sedation. Tmax 100.6 IV abx Bronch today Medications: Reviewed: Yes Vitals/I&O/Wt Last Vital Signs Temp 100.6 F H 12/31/20 16:21 Pulse 70 12/31/20 18:00 Resp 18 12/31/20 18:00 BP 124/63 12/31/20 18:00 Pulse Ox 92 12/31/20 18:00 12/31/20 12/31/20 12/31/20 06:59 14:59 22:59 Intake Total 1487.187 / 3897.787 954.975 / 954.975 897.647 / 1852.622 Output Total 800 / 2200 850 / 850 450 / 1300 Balance 687.187 / 1697.787 104.975 / 104.975 447.647 / 552.622 Weight last 48 hrs Weight 87.997 kg Weight 87.498 kg Physical Exam Const: COMMON NORMALS: no acute distress GENERAL APPEARANCE: patient mechanically ventilated ORIENTATION/CONSCIOUSNESS: Yes awake OTHER: Sedated HENMT: COMMON NORMALS: normocephalic and oropharynx normal HEAD & SCALP: normocephalic Neck/C-Spine: COMMON NORMALS: no JVD Resp: COMMON NORMALS: normal respiratory effort, No retractions, No use of accessory muscles and clear to auscultation bilaterally EFFORT & INSPECTION: Yes tachypneic AUSCULTATION: clear to auscultation bilaterally Cardio: COMMON NORMALS: no JVD, regular rate, regular rhythm, S1 normal heart sound present, S2 normal heart sound present and No murmurs present (Cardio) RATE: regular rate RHYTHM: regular rhythm HEART SOUNDS: S1 normal heart sound present and S2 normal heart sound present GI: COMMON NORMALS: Normal to inspection, nondistended, normoactive bowel sounds present, Soft to palpation and No hepatosplenomegaly present PALPATION: Yes Soft to palpation and Yes No hepatosplenomegaly present OTHER: L superolateral of umbilicus soft tissue lump above 3 x 5 cm, present previously Extremity: COMMON NORMALS: no joint enlargement and no pedal edema Neuro: COMMON NORMALS: moves all extremities Psych: COMMON NORMALS: mental status grossly normal Skin: COMMON NORMALS: no rashes or lesions noted GENERAL SKIN EXAM: no rashes or lesions noted Urinary Catheter Management^: Sloan: Cath Placed During This Visit: yes Reason for Continuing Indwelling Catheter: Accurate Measurement of Urinary Output in Critically Ill Patients Urinary Catheter Date of Insertion: 12/22/20 Urinary Catheter Time of Insertion: 14:01 Data : 12/31/20 04:44 12/31/20 04:44 Micro: Microbiology 12/31/20 13:29 Gram Stain - Final Lung Right Middle Lobe 12/29/20 15:50 Gram Stain - Final Sputum - Endotracheal Tube Aspirate Sputum Culture - Final Staphylococcus aureus 12/28/20 10:03 Blood Culture - Preliminary Blood Staphylococcus aureus 12/30/20 13:45 Catheter Tip Culture - Preliminary Central Line 12/29/20 10:21 Urine Culture - Preliminary Urine,Clean Catch Yeast species 12/29/20 22:12 Blood Culture - Preliminary Blood NEGATIVE TO DATE 12/29/20 22:06 Blood Culture - Preliminary Blood NEGATIVE TO DATE A&P Assessment and plan (1) Septic shock: Status: Acute (2) Bacteremia due to Staphylococcus: Status: Acute (3) Staphylococcal pneumonia: Status: Acute (4) Acute respiratory distress syndrome: Status: Acute (5) Pneumonia due to COVID-19 virus: Monitor respiratory rate. Pressor requirement. Updated his sister and discussed events over the previous days. COVID-19 pneumonia, possibly contribution of aspiration pneumonia with inadvertent extubation continue to reassess for other potential sources. Septic shock with persistent leukocytosis, fever, hypotension. Continue broadened antibiotic course with cefepime, vancomycin. Continue Decadron. Anticoagulation for DVT. Received monoclonal antibody this morning at [facility] reportedly Completed remdesivir Hold baricitinib received 3 doses, 1 dose Actemra duoneb q6h, budesonide q12h CTA chest negative for PE Reintubated after inadvertent extubation on 12/25. Urine culture without growth so far. Sloan exchanged on 11/24. Status: Acute (6) Respiratory failure with hypoxia: Continue Vent Pulmonary on board FIo2 weaned to 45%, PEEP 8 Bronch today Wean vent trial in am Continue current management Neb Pulmicort Decadron Status: Acute (7) DVT (deep venous thrombosis): Therapeutic Lovenox changed to qday Monitor for bleeding. Status: Acute (8) JAY (acute kidney injury): Renal function improving. Creatinine normalized. BUN improving. Sloan noted with partial obstruction, exchanged on 10/27. Status: Acute (9) Hyperkalemia: Stable BMP in am Status: Acute (10) Transaminitis: Mild. Monitor. Status: Acute Additional A&P Information Type 2 diabetes mellitus, moderate dose sliding scale, Lantus Periumbilical lump: Hernia without evidence of incarceration on ultrasound. Incidentally noted 1.7 x 1.5 x 2.8 cm ovoid hypoechoic lesion along superior margin of the left kidney, likely a splenule. Plan for the day: Septic shock/Staph bacteremia and Staphylococcus pneumonia: Remove central line. Will request for midline. Repeat blood cultures sent yesterday. We will continue to follow. Blood cultures from 12/28 2 out of 3 bottles positive for coccus, sputum culture positive for Staphylococcus urine culture positive for yeast. Continue with vancomycin, imipenem, fluconazole. Triglycerides elevated more than 500. We will try to wean down propofol and if possible transition over to Versed if triglycerides continue to remain elevated for next 48 hours. For now try to increase Precedex and fentanyl while weaning off propofol to maintain sedation. Continue to monitor inflammatory markers. For hemoptysis continue to hold off on Lovenox. Case discussed with Dr. Luong from pulmonology. Depending on goals of care discussion with family will consider bronchoscopy if patient continues to have hemoptysis. For septic shock try to wean Levophed giving mean arterial pressure over 65. Hold off on any Lasix today given septic shock and borderline blood pressures. Keep saturation over 90%. We will have further goals of care discussion with patient's son Mr. Logan today. Yesterday we discussed regarding further goals of care given patient being ventilator dependent for last 7 days, increasing oxygen supplementation, septic shock with requirement of Levophed, persistent febrile and blood culture positive for Staphylococcus. We discussed possible need of trach and PEG for protracted slow recovery going forward if possible versus comfort measures status. Mr. Logan is going to confer with his family members and get back to us regarding the goals. Attestations Medical Necessity Statement*: Will require further hospitalization for management of covid-19 resp failure, on vent Time Spent in Patient Care: Greater than 35 minutes (>than 50% of time spent in counselling and/or direct pt care on unit). Critical Care Time: Critical Care Time (min): 35 Coding Level of Care Code Acute Motion Study Engineer for [facility] Diagnoses Septic shock A41.9; R65.21 Bacteremia due to Staphylococcus R78.81; B95.8 Staphylococcal pneumonia J15.20 Acute respiratory distress syndrome J80 Pneumonia due to COVID-19 virus U07.1; J12.82 Respiratory failure with hypoxia J96.91 DVT (deep venous thrombosis) I82.409 JAY (acute kidney injury) N17.9 Hyperkalemia E87.5 Transaminitis R74.01
[2020-12-31 19:35] LABS: Glucose Point of Care 267 mg/dL (70-110)
[2020-12-31] MEDS: dexmedetomidine 400 MCG in sodium chloride 0.9% (100 ml) 100 ML 14.12 MCG IV (23:28)
[2021-01-01] VITALS (68 sets, daily range): BP systolic 88–147; BP diastolic 48–92; PULSE 53–94; RESP 14–21; TEMP 36.8–38.3; O2SAT 88–97
[2021-01-01] MEDS: midazolam 1 mg/mL INJ 2 mL 2 MG IVP ×9 (00:21→22:21)
[2021-01-01] MEDS: ipratropium-albuterol 3 mL Neb INHALATION ×5 (04:04→19:53)
[2021-01-01 04:13] LABS: Basophils # 0.1 10^3/uL (0.0-0.1); Basophils % 0.5 %; Eosinophils # 0.2 10^3/uL (0.0-0.8); Hematocrit 34.6 % (42.0-52.0); Hemoglobin 10.9 g/dL (11.7-16.6); Lymphocytes # 0.8 10^3/uL (0.8-4.8); Lymphocytes % 7.6 %; Mean Corpuscular HGB Conc 31.5 g/dL (30.0-36.0); Mean Corpuscular Hemoglobin 30.1 pg (28.0-34.0); Mean Corpuscular Volume 95.6 fl (80-94); Mean Platelet Volume 12.1 fL (7.4-10.4); Monocytes # 0.6 10^3/uL (0.2-0.9); Monocytes % 6.2 %; Neutrophils # 8.39 10^3/uL (1.8-7.7); Neutrophils % 83.2 %; Nucleated Red Blood Cells % 0 %; Platelet Count 101 10^3/cmm (130-400); Red Blood Count 3.62 10^6/uL (4.1-5.3); Red Cell Distribution Width 12.6 % (12.1-15.1); White Blood Count 10.1 10^3/uL (4.0-10.0)
[2021-01-01 04:39] LABS: D Dimer 1.38 ug/mIFEU (0-0.59)
[2021-01-01 04:44] LABS: Alanine Aminotransferase 20 U/L (0-41); Alkaline Phosphatase 67 IU/L (40-130); Blood Urea Nitrogen 30 mg/dL (8-23); Calcium 8.7 mg/dL (8.5-10.5); Carbon Dioxide 33 mmol/L (22-29); Globulin 1.8 g/dL (1.3-4.6); Glomerular Filtration Rate 303.8 mL/min (90-130); Glucose 217 mg/dL (65-115); Magnesium 2.1 mg/dL (1.7-2.3); Total Bilirubin 0.7 mg/dL (0.15-1.2); Total Protein 4.8 g/dL (6.6-8.7); Triglycerides 637 mg/dL (0-150)
[2021-01-01 04:47] LABS: Aspartate Amino Transferase 16 U/L (0-40); Potassium 4.6 mmol/L (3.5-5.1)
[2021-01-01 04:55] LABS: Procalcitonin 0.15 ng/mL (0-0.5)
[2021-01-01 05:06] LABS: C Reactive Protein 0.3 mg/L (0.0-4.9); Triglycerides 632 mg/dL (0-150)
--- NOTE | 2021-01-01 05:14 | PC.NURSE ---
Shift Note Frequent safety and comfort rounds continue. Pt repositioned q 2 hours. Pts FiO2 decreased as tolerated. Orders and nursing care completed as indicated. Patient monitored for response to intervention and treatment. Education provided includes pain management. Patient needs reinforcement.
[2021-01-01 05:33] LABS: ABG PCO2 52.9 mmHg (35-45); ABG PH Result 7.43 (7.35-7.45); Arterial Blood Gas Hematocrit 33.7 % (42-52); Base Excess ABG 9.3 mmol/L (-2.0-2.0); Blood Gas Allen Test Pos; Blood Gas Sample Site Radial, right; Blood Gas Sample Type Arterial; Blood Gas Tidal Volume 0.45; HCO3 ABG 35.1 mmol/L (22-26); Oxygen Device VENT; PO2 ABG 69.1 mmHg (80.0-100.0)
[2021-01-01 05:52] LABS: LDL Cholesterol Direct 23 mg/dL (0-100)
[2021-01-01 05:53] LABS: Anion Gap 9.6 (5-19); Osmolality Calculated 313 mOsm/kg (285-295)
[2021-01-01 05:55] LABS: Sodium 145 mmol/L (136-145)
[2021-01-01 05:56] LABS: Chloride 107 mmol/L (98-107)
[2021-01-01] MEDS: dexmedetomidine 400 MCG in sodium chloride 0.9% (100 ml) 100 ML IV (06:30)
--- NOTE | 2021-01-01 08:07 | XR_ITS ---
WS: [id number] Portable AP upright chest, 01/01/2021 Clinical Data: pne Comparison: Portable chest, 12/31/2020 Findings: The endotracheal tube and nasogastric tube are in good position. The bilateral pulmonary op acities remain the same. The heart is normal. Monitor leads are on the chest wall. XR/XR chest 1V portable [id number] Impression: 1. No change in endotracheal tube and nasogastric tube. 2. No change in bilateral pulmonary opacities.
[2021-01-01] MEDS: insulin lispro 100 unit/1 mL SUBCUT ×3 (08:18→21:21)
--- NOTE | 2021-01-01 08:39 | USCV_ITS ---
Jeff Chahal Age: 60 Gender: M : 1960 Exam Date: 01/01/2021 09:09 Ordering Phys: Tracie Luong MD Technologist: Exam Location: [facility] [place] Indication: hx of dvt in lt pop PROCEDURES: Venous duplex imaging was performed in only the left lower extremity. The following venous structures were evaluated: common femoral vein, profunda vein, proximal portion of the greater saphenous vein, superficial femoral vein, and the popliteal vein. In addition, the posterior tibial and peroneal trunk were evaluated. FINDINGS: Normal 2-D Doppler and augmentation and compressibility throughout the lower extremity venous structures. Additional imaging through the proximal calf veins also reveals no thrombus. Limited evaluation of the greater saphenous vein is patent with no thrombus.. CONCLUSIONS No evidence of left lower extremity DVT. Raudel Albarado MD (Electronically Signed) Final Date: 01 January 2021 10:44 S
[2021-01-01] MEDS: fluconazole 100 mg Tablet 200 MG PO (09:21)
[2021-01-01] MEDS: pantoprazole DR 40 mg Tablet PO (09:21)
[2021-01-01] MEDS: magnesium hydroxide 30 mL UDC PO ×2 (09:21→17:32)
[2021-01-01] MEDS: zinc gluconate 50 mg Tablet PO (09:21)
[2021-01-01] MEDS: polyethylene glycol 3350 Pkt 17 gm PO (09:21)
[2021-01-01] MEDS: neomycin-poly-bacitracin oint 28 gm 1 APPLIC TOPICAL ×2 (09:23→17:32)
[2021-01-01] MEDS: insulin glargine 100 units/1 mL 30 UNIT SUBCUT ×2 (09:28→21:22)
--- NOTE | 2021-01-01 09:30 | PC.NURSE ---
Medication Administration Patient OG tube placement checked by chest x-ray and auscultation of the stomach. Feeding stopped, residual amount of 3mL aspirated before administration of medication. 60mL of water instilled into the tube followed by 290mL of medications then 180mL of water. Patient tolerated well.
[2021-01-01 10:15] LABS: ABG PCO2 40.1 mmHg (35-45); ABG PH Result 7.54 (7.35-7.45); Alveolar-Arterial Oxygen Gradi 29.4 mmHg (5-10); Arterial Blood Gas Hematocrit 33.7 % (42-52); Base Excess ABG 10.4 mmol/L (-2.0-2.0); Blood Gas Allen Test Pos; Blood Gas Operator Identificat CAK; Blood Gas Sample Site Brachial, left; Blood Gas Sample Type Arterial; Blood Gas Tidal Volume 0.45; HCO3 ABG 33.9 mmol/L (22-26); HGB O2 Sat 88.4 % (95-100); Ionized Calcium Level - ABG 1.3 mmol/L (1.1-1.4); Oxygen Device VENT; Oxygen Saturation ABG 90.2; PO2 ABG 48.8 mmHg (80.0-100.0); Potassium Level - ABG 3.8 mmol/L (3.5-5.0)
--- NOTE | 2021-01-01 12:22 | PC.NURSE ---
Feeding Discussed tube feeding with Vice President Of News. She mentioned that the charting showed that we were giving 3/4 supplement strength and that is not accurate. Patient has been receiving full strength.
--- NOTE | 2021-01-01 12:45 | PC.NURSE ---
Precedex rate increased to 1.0 mcg and Fentanyl increased to [address] Luong. Will continue to monitor patient's response to treatment.
[2021-01-01] MEDS: enoxaparin 40 mg/0.4 mL Syringe SUBCUT (13:52)
--- NOTE | 2021-01-01 16:01 | PM.PN ---
Subjective Subjective: Interval history: Patient was seen and examined. His oxygen requirement was approximately 45% before starting his breathing trial. However patient desaturated during the breathing trial. Currently the patient is back on 70% FiO2. The patient however was awake and able to follow commands. He was coughing. I believe with coughing the functional residual capacity went down which contributed to the desaturation. Chest x-ray today revealed bilateral infiltrate which has not changed significantly. His white count has been stable. Mild low-grade fever. The bronchoalveolar lavage Gram stain revealed no microorganisms. Very small quantity of WBC. Medications: Reviewed: Yes Vitals/I&O/Wt Last Vital Signs Temp 100.9 F H 01/01/21 12:00 Pulse 71 01/01/21 14:00 Resp 14 01/01/21 11:47 BP 128/72 01/01/21 14:00 Pulse Ox 93 01/01/21 11:47 01/01/21 01/01/21 01/01/21 06:59 14:59 22:59 Intake Total 1263.929 / 3314.219 201.125 / 201.125 Output Total 800 / 2100 190 / 190 Balance 463.929 / 1214.219 11.125 / 11.125 Weight last 48 hrs Weight 195 lb Weight 194 lb Physical Exam Narrative: EXAM NARRATIVE: General: Patient is intubated and sedated. Following simple command Neck: No JVD Respiratory: Auscultation: Reduced breath sound bilaterally, crackles at lung bases Cardiovascular: Regular rate and rhythm, S1-S2 present, no murmur, no peripheral edema. Abdomen: Soft, nontender, nondistended, positive bowel sound Skin: No rash Neuro: Unable to assess Urinary Catheter Management^: Sloan: Cath Placed During This Visit: yes Reason for Continuing Indwelling Catheter: Accurate Measurement of Urinary Output in Critically Ill Patients Urinary Catheter Date of Insertion: 12/22/20 Urinary Catheter Time of Insertion: 14:01 Data : 01/01/21 03:59 01/01/21 03:59 Micro: Microbiology 12/28/20 10:03 Blood Culture - Final Blood Staphylococcus aureus 12/31/20 13:29 Gram Stain - Final Lung Right Middle Lobe Bronchial Washings Culture - Preliminary 12/30/20 13:45 Catheter Tip Culture - Final Central Line 12/29/20 15:50 Gram Stain - Final Sputum - Endotracheal Tube Aspirate Sputum Culture - Final Staphylococcus aureus Attestation for Other Data: I personally reviewed and interpreted the following: Other data: I have reviewed the patient's laboratory, [place] and radiologic data. Please see the HPI for detail. A&P Assessment and plan (1) Staphylococcal pneumonia: The patient is growing MSSA from blood and the lung. His leukocytosis has improved. The catheter tip culture was negative. We will continue with imipenem for the time being. Status: Acute (2) Bacteremia due to Staphylococcus: The central line was removed and the patient has a midline catheter now. Status: Acute (3) Acute respiratory distress syndrome: During the breathing trial today, when the patient was more awake, he was coughing. I believe the loss of functional residual capacity is contributing to the patient's hypoxia. I am hoping to extubate the patient to high flow tomorrow. Status: Acute (4) Pneumonia due to COVID-19 virus: The patient has completed 10-day course of dexamethasone. We will continue with imipenem for the time being. No microorganism grew from the bronchoscopy yet. Status: Acute (5) DVT (deep venous thrombosis): The left lower extremity DVT revealed resolution of the left popliteal vein DVT. For now, we will continue with the prophylactic dose Lovenox. Status: Acute (6) Septic shock: This is likely secondary to MSSA bacteremia. The Levophed is off at this point. Status: Acute Attestations Medical Necessity Statement*: Will defer to the primary team Coding Level of Care Code Acute Loss Prevention Consultant for [facility] Diagnoses Staphylococcal pneumonia J15.20 Bacteremia due to Staphylococcus R78.81; B95.8 Acute respiratory distress syndrome J80 Pneumonia due to COVID-19 virus U07.1; J12.82 DVT (deep venous thrombosis) I82.409 Septic shock A41.9; R65.21 Time Spent (min) 33
--- NOTE | 2021-01-01 16:19 | PM.PN ---
Subjective Subjective: Interval history: Remained on vent, fio2 45%, sedation vacation, on MMV, noted fever. d/w pulmonary Medications: Reviewed: Yes Vitals/I&O/Wt Last Vital Signs Temp 99.8 F H 01/01/21 20:00 Pulse 67 01/01/21 22:00 Resp 18 01/01/21 19:53 BP 113/69 01/01/21 18:00 Pulse Ox 97 01/01/21 19:53 01/01/21 01/01/21 01/02/21 14:59 22:59 06:59 Intake Total 201.125 / 710.470 5501 / 1234.125 Output Total 190 / 190 830 / 1020 Balance 11.125 / 11.125 203 / 214.125 Weight last 48 hrs Weight 88.451 kg Weight 87.997 kg Physical Exam Const: GENERAL APPEARANCE: patient mechanically ventilated ORIENTATION/CONSCIOUSNESS: Yes awake OTHER: Sedated HENMT: COMMON NORMALS: normocephalic and oropharynx normal HEAD & SCALP: normocephalic Neck/C-Spine: COMMON NORMALS: no JVD Resp: COMMON NORMALS: normal respiratory effort, No retractions, No use of accessory muscles and clear to auscultation bilaterally EFFORT & INSPECTION: Yes tachypneic AUSCULTATION: clear to auscultation bilaterally Cardio: COMMON NORMALS: no JVD, regular rate, regular rhythm, S1 normal heart sound present, S2 normal heart sound present and No murmurs present (Cardio) RATE: regular rate RHYTHM: regular rhythm HEART SOUNDS: S1 normal heart sound present and S2 normal heart sound present GI: COMMON NORMALS: Normal to inspection, nondistended, normoactive bowel sounds present, Soft to palpation and No hepatosplenomegaly present PALPATION: Yes Soft to palpation and Yes No hepatosplenomegaly present OTHER: L superolateral of umbilicus soft tissue lump above 3 x 5 cm, present previously Extremity: COMMON NORMALS: no joint enlargement and no pedal edema Neuro: COMMON NORMALS: moves all extremities Psych: COMMON NORMALS: mental status grossly normal Skin: COMMON NORMALS: no rashes or lesions noted GENERAL SKIN EXAM: no rashes or lesions noted Urinary Catheter Management^: Sloan: Cath Placed During This Visit: yes Reason for Continuing Indwelling Catheter: Accurate Measurement of Urinary Output in Critically Ill Patients Urinary Catheter Date of Insertion: 12/22/20 Urinary Catheter Time of Insertion: 14:01 Data : 01/01/21 03:59 01/01/21 03:59 Micro: Microbiology 12/28/20 10:03 Blood Culture - Final Blood Staphylococcus aureus 12/31/20 13:29 Gram Stain - Final Lung Right Middle Lobe Bronchial Washings Culture - Preliminary 12/30/20 13:45 Catheter Tip Culture - Final Central Line A&P Assessment and plan (1) Septic shock: Status: Acute (2) Bacteremia due to Staphylococcus: Status: Acute (3) Staphylococcal pneumonia: Status: Acute (4) Acute respiratory distress syndrome: Status: Acute (5) Pneumonia due to COVID-19 virus: Monitor respiratory rate. Pressor requirement. Updated his sister and discussed events over the previous days. COVID-19 pneumonia, possibly contribution of aspiration pneumonia with inadvertent extubation continue to reassess for other potential sources. Septic shock with persistent leukocytosis, fever, hypotension. Continue broadened antibiotic course with cefepime, vancomycin. Continue Decadron. Anticoagulation for DVT. Received monoclonal antibody this morning at [facility] reportedly Completed remdesivir Hold baricitinib received 3 doses, 1 dose Actemra duoneb q6h, budesonide q12h CTA chest negative for PE Reintubated after inadvertent extubation on 12/25. Urine culture without growth so far. Sloan exchanged on 11/24. Status: Acute (6) Respiratory failure with hypoxia: Continue Vent Pulmonary on board FIo2 weaned to 45%, PEEP 8 Bronch today Wean vent trial in am Continue current management Neb Pulmicort Decadron Status: Acute (7) DVT (deep venous thrombosis): Lovenox Monitor for bleeding. h/h in am Status: Acute (8) JAY (acute kidney injury): Renal function improving. Creatinine normalized. BUN improving. Sloan noted with partial obstruction, exchanged on 12/24. Status: Acute (9) Hyperkalemia: BMP in am Status: Acute (10) Transaminitis: Mild. Monitor. CMP in am Status: Acute Additional A&P Information Type 2 diabetes mellitus, moderate dose sliding scale, Lantus Periumbilical lump: Hernia without evidence of incarceration on ultrasound. Incidentally noted 1.7 x 1.5 x 2.8 cm ovoid hypoechoic lesion along superior margin of the left kidney, likely a splenule. Plan for the day: D/w pulmonary Did not tolerate wean Resumed on sedation Full vent support ABG in am Continue current meds Attestations Medical Necessity Statement*: Further hospitalization for management of sepis, vent, iv abx. Time Spent in Patient Care: Greater than 35 minutes Critical Care Time: Critical Care Time (min): 40 Coding Level of Care Code Acute Promotions Executive Producer for [facility] [facility] Diagnoses Septic shock A41.9; R65.21 Bacteremia due to Staphylococcus R78.81; B95.8 Staphylococcal pneumonia J15.20 Acute respiratory distress syndrome J80 Pneumonia due to COVID-19 virus U07.1; J12.82 Respiratory failure with hypoxia J96.91 DVT (deep venous thrombosis) I82.409 JAY (acute kidney injury) N17.9 Hyperkalemia E87.5 Transaminitis R74.01
--- NOTE | 2021-01-01 18:00 | PC.NURSE ---
Medication Administration Patient OG tube placement checked by chest x-ray and auscultation of the stomach. Feeding stopped, residual amount of 15mL aspirated before administration of medication. 60mL of water instilled into the tube followed by 60mL of medications then 60mL of water. Patient tolerated well.
[2021-01-01 20:23] LABS: Glucose Point of Care 212 mg/dL (70-110)
[2021-01-01 20:23] LABS: Glucose Point of Care 235 mg/dL (70-110)
[2021-01-01 20:23] LABS: Glucose Point of Care 100 mg/dL (70-110)
[2021-01-01 21:33] LABS: Glucose Point of Care 213 mg/dL (70-110)
[2021-01-02] VITALS (88 sets, daily range): BP systolic 82–147; BP diastolic 45–79; PULSE 58–104; RESP 10–22; TEMP 36.9–37.5; O2SAT 88–98
[2021-01-02] MEDS: ipratropium-albuterol 3 mL Neb INHALATION ×7 (00:19→23:32)
[2021-01-02] MEDS: midazolam 1 mg/mL INJ 2 mL 2 MG IVP ×2 (00:55→03:09)
[2021-01-02 04:39] LABS: ABG PCO2 45.4 mmHg (35-45); ABG PH Result 7.52 (7.35-7.45); Arterial Blood Gas Hematocrit 32.1 % (42-52); Base Excess ABG 12.9 mmol/L (-2.0-2.0); Blood Gas Allen Test Pos; Blood Gas Sample Site Radial, right; Blood Gas Sample Type Arterial; HCO3 ABG 37.2 mmol/L (22-26); Oxygen Device VENT; PO2 ABG 69.2 mmHg (80.0-100.0)
[2021-01-02 05:07] LABS: Basophils % 0.3 %; Eosinophils # 0.1 10^3/uL (0.0-0.8); Eosinophils % 2.1 %; Hematocrit 31.2 % (42.0-52.0); Hemoglobin 10.2 g/dL (11.7-16.6); Lymphocytes # 0.6 10^3/uL (0.8-4.8); Lymphocytes % 9.4 %; Mean Corpuscular HGB Conc 32.7 g/dL (30.0-36.0); Mean Corpuscular Hemoglobin 30.4 pg (28.0-34.0); Mean Corpuscular Volume 92.9 fl (80-94); Mean Platelet Volume 13.1 fL (7.4-10.4); Monocytes # 0.3 10^3/uL (0.2-0.9); Monocytes % 5.3 %; Neutrophils # 5.15 10^3/uL (1.8-7.7); Neutrophils % 82.4 %; Nucleated Red Blood Cells % 0 %; Platelet Count 99 10^3/cmm (130-400); Red Blood Count 3.36 10^6/uL (4.1-5.3); Red Cell Distribution Width 12.8 % (12.1-15.1); White Blood Count 6.3 10^3/uL (4.0-10.0)
[2021-01-02 05:15] LABS: Triglycerides 550 mg/dL (0-150)
[2021-01-02 05:16] LABS: Alanine Aminotransferase 27 U/L (0-41); Albumin Level 2.8 g/dL (3.5-5.2); Alkaline Phosphatase 38 IU/L (40-130); Aspartate Amino Transferase 21 U/L (0-40); Blood Urea Nitrogen 23 mg/dL (8-23); Calcium 8.5 mg/dL (8.5-10.5); Carbon Dioxide 32 mmol/L (22-29); Chloride 103 mmol/L (98-107); Globulin 1.8 g/dL (1.3-4.6); Glomerular Filtration Rate 303.8 mL/min (90-130); Glucose 181 mg/dL (65-115); Magnesium 1.9 mg/dL (1.7-2.3); Osmolality Calculated 304 mOsm/kg (285-295); Sodium 143 mmol/L (136-145); Total Bilirubin 0.6 mg/dL (0.15-1.2); Total Protein 4.6 g/dL (6.6-8.7)
[2021-01-02 05:21] LABS: Procalcitonin 0.16 ng/mL (0-0.5)
[2021-01-02 05:22] LABS: Anion Gap 11.7 (5-19); Potassium 3.7 mmol/L (3.5-5.1)
[2021-01-02 05:40] LABS: LDL Cholesterol Direct 18 mg/dL (0-100)
--- NOTE | 2021-01-02 06:57 | NUR.SHIFT ---
Shift Summary: Patient tolerating tube feeds at this time, highest residual was 10ml. Patient following commands, nodding to yes/no questions. Administered PRN versed to maintain vent management. Patient remains of fentanyl and versed gtt. Decreased FiO2 to 60% by respiratory- O2 sats>90%. Small bloody secretions obtained through inline. VSS, no signs or symptoms of distress at this time noted.
[2021-01-02 07:22] LABS: Glucose Point of Care 266 mg/dL (70-110)
[2021-01-02] MEDS: neomycin-poly-bacitracin oint 28 gm 1 APPLIC TOPICAL ×2 (08:08→17:44)
[2021-01-02] MEDS: polyethylene glycol 3350 Pkt 17 gm PO (08:08)
[2021-01-02] MEDS: magnesium hydroxide 30 mL UDC PO (08:09)
[2021-01-02] MEDS: fluconazole 100 mg Tablet 200 MG PO (08:09)
[2021-01-02] MEDS: insulin lispro 100 unit/1 mL SUBCUT ×2 (08:10→11:47)
[2021-01-02] MEDS: bisacodyl 10 mg Supp PR (08:10)
--- NOTE | 2021-01-02 08:30 | USCV_ITS ---
Jeff Chahal Age: 60 Gender: M : 1960 Exam Date: 01/02/2021 09:33 Ordering Phys: David Jones MD Technologist: [place] [facility] [place]: ? VEG ON VALVES BP: / HR: Rhythm: Sinus Technical Quality: Very technically difficult study MEASUREMENTS (Male / Female) Normal Values FINDINGS Left Ventricle Right Ventricle Right Atrium Left Atrium Mitral Valve Aortic Valve Tricuspid Valve Pulmonic Valve Pericardium Aorta CONCLUSIONS Very limited quality echocardiogram because of poor ultrasonic windows. Grossly LV systolic function is normal. Only mitral valve is visualized with limited images. No vegetation is seen on it however given the quality of echocardiogram cannot completely rule it out. Rest of the valves are not visualized. Devaughn Owens MD (Electronically Signed) Final Date: 03 January 2021 19:05 S
[2021-01-02] MEDS: pantoprazole DR 40 mg Tablet PO (09:15)
--- NOTE | 2021-01-02 09:57 | PC.NURSE ---
Shift report taken, morning rounding completed, assessment found bruising on right upper arm at IV site as well as bruising on patients left lower abdomen. Moderate oral secretions. Oral care provided. OG tube placement verified via auscultation and medications administered. Patient nods head to questions and attempted to wiggle toes. At this time appears too weak to squeeze nurses fingers, but nodded when asked if he could.
--- NOTE | 2021-01-02 10:05 | PC.CHAP ---
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 teaseler visit [] Patient/Family/Request visit [] Outpatient visit [] Follow-up visit [] Physician referral [] Code/Alert [x] Routine visit [] Staff referral [] Actively dying [] Patient sleeping [] Family support [] [] Out of room [] Palliative care [] [x] Receiving care in room [] Pre-surgical visit [] Trauma [] Long length of stay [x] ICU visit [x] Other: covid Relational/Emotional Strength [] Patient feels connected with others/family/visitors/staff [] Distress [] Loneliness/isolation [] Abandonment Spirituality of Patient [] Person of Elvia [] Attends Zoroastrian of their Elvia [] Believes in Prayer [] Reads Bible or Methodist materials [] There are Spiritual issues to be addressed Asp Developer Interventions [x] Prayer [] Active listening [] Non-anxious presence [] Spiritual/emotional support [] Crisis/trauma care [] Spiritual counseling [] Bereavement support [] Provided bereavement packet [] Provided Bible/devotional materials [] Provided toy/stuffed animal, coloring book to patient or family member [] Provided Communion [] Anointing/Mobile [] Salvation [x] Completed spiritual assessment [] Other: Impact on Illness or Injury [] Angry [] Fearful [] Anxious [] Often cries [] Exhaustion [] Unable to work [] Unable to attend adventist [] Unable to walk/stand [] Unable to read [] Unable to drive [] Unable to eat/drink [] Unable to sleep [] Unable to be with family [] Patient intubated [] Other: Summary Time spent with patient
[2021-01-02] MEDS: insulin glargine 100 units/1 mL 30 UNIT SUBCUT (10:16)
[2021-01-02 11:22] LABS: Glucose Point of Care 214 mg/dL (70-110)
--- NOTE | 2021-01-02 11:43 | PC.NURSE ---
DR. Jones ordered fentanyl to be stopped pending possible extubation today. Order promptly followed at 11:44.
--- NOTE | 2021-01-02 12:00 | PM.PN ---
Subjective Subjective: Interval history: Patient was seen and examined this morning, was on CPAP/pressure support, tolerated well, was extubated, to [facility]. Currently requiring 70% FiO2. Noted T-max in the last 24 hours: 100.9 Medications: Reviewed: Yes Vitals/I&O/Wt Last Vital Signs Temp 98.7 F 01/02/21 07:30 Pulse 90 01/02/21 11:31 Resp 10 L 01/02/21 11:34 BP 107/67 01/02/21 09:30 Pulse Ox 95 01/02/21 11:34 01/01/21 01/02/21 01/02/21 22:59 06:59 14:59 Intake Total 1033 / 4472.689 1900 / 2634.125 185 / 185 Output Total 830 / 1020 750 / 1770 Balance 203 / 214.125 650 / 864.125 185 / 185 Weight last 48 hrs Weight 89.499 kg Weight 88.451 kg Physical Exam HENMT: COMMON NORMALS: normocephalic and atraumatic HEAD & SCALP: normocephalic and atraumatic Resp: COMMON NORMALS: clear to auscultation bilaterally EFFORT & INSPECTION: Yes symmetric chest movement AUSCULTATION: clear to auscultation bilaterally Cardio: COMMON NORMALS: regular rate, regular rhythm, S1 normal heart sound present, S2 normal heart sound present, No gallops present (Cardio), No murmurs present (Cardio), No rub (Cardio) and Peripheral pulses 2+ throughout RATE: regular rate RHYTHM: regular rhythm HEART SOUNDS: S1 normal heart sound present and S2 normal heart sound present PERIPHERAL PULSES: Peripheral pulses 2+ throughout GI: COMMON NORMALS: Normal to inspection, nondistended, normoactive bowel sounds present, Soft to palpation, non-tender, No hepatosplenomegaly present and no masses AUSCULTATION: Yes normoactive bowel sounds PALPATION: Yes Soft to palpation and Yes No hepatosplenomegaly present RECTAL EXAM: Yes deferred Extremity: COMMON NORMALS: no clubbing, cyanosis or edema and no pedal edema Urinary Catheter Management^: Sloan: Cath Placed During This Visit: yes Reason for Continuing Indwelling Catheter: Accurate Measurement of Urinary Output in Critically Ill Patients Urinary Catheter Date of Insertion: 12/22/20 Urinary Catheter Time of Insertion: 14:01 Data : 01/02/21 04:16 01/02/21 04:16 Micro: Microbiology 12/28/20 10:03 Blood Culture - Final Blood Staphylococcus aureus 12/31/20 13:29 Gram Stain - Final Lung Right Middle Lobe Bronchial Washings Culture - Preliminary 12/30/20 13:45 Catheter Tip Culture - Final Central Line A&P Assessment and plan (1) Septic shock: Status: Acute (2) Bacteremia due to Staphylococcus: Status: Acute (3) Staphylococcal pneumonia: Status: Acute (4) Acute respiratory distress syndrome: Status: Acute (5) Pneumonia due to COVID-19 virus: COVID-19 pneumonia, possibly contribution of aspiration pneumonia with inadvertent extubation continue to reassess for other potential sources. Septic shock with persistent leukocytosis, fever, hypotension. Continue broadened antibiotic course with imipenem Continue Decadron. Anticoagulation for DVT. Received monoclonal antibody this morning at [facility] reportedly Completed remdesivir Hold baricitinib received 3 doses, 1 dose Actemra duoneb q6h, budesonide q12h CTA chest negative for PE Reintubated after inadvertent extubation on 12/25. Urine culture without growth so far. Sloan exchanged on 11/24. Status: Acute (6) Respiratory failure with hypoxia: Continue HHFONC Pulmonary on board S/p Bronchoscopy Neb Pulmicort Decadron Status: Acute (7) DVT (deep venous thrombosis): Lovenox Monitor for bleeding. h/h in am Status: Acute (8) JAY (acute kidney injury): Renal function improving. Creatinine normalized. BUN improving. Sloan noted with partial obstruction, exchanged on 12/24. Status: Acute (9) Hyperkalemia: BMP in am Status: Acute (10) Transaminitis: Mild. Monitor. CMP in am Status: Acute Additional A&P Information Type 2 diabetes mellitus, moderate dose sliding scale, Lantus Periumbilical lump: Hernia without evidence of incarceration on ultrasound. Incidentally noted 1.7 x 1.5 x 2.8 cm ovoid hypoechoic lesion along superior margin of the left kidney, likely a splenule. Plan for the day: D/w pulmonary Did not tolerate wean Resumed on sedation Full vent support ABG in am Continue current meds Attestations Medical Necessity Statement*: Patient is to be in hospital for management of pneumonia. 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
--- NOTE | 2021-01-02 13:57 | PC.NURSE ---
Patient extubated to F at 1345. Current Oxygenation saturation is 97 percent.
[2021-01-02] MEDS: enoxaparin 40 mg/0.4 mL Syringe SUBCUT (14:45)
[2021-01-02 17:43] LABS: Glucose Point of Care 107 mg/dL (70-110)
--- NOTE | 2021-01-02 18:18 | PM.PN ---
Subjective Subjective: Interval history: The patient was seen and examined. He was successfully extubated this afternoon. His mental status is good. He is awake alert and following all commands. Currently he is on high flow nasal cannula. He is currently on 70% FiO2. His blood sugar this evening has dropped 200 from 200. This is likely due to discontinuation of the dexamethasone yesterday. Medications: Reviewed: Yes Vitals/I&O/Wt Last Vital Signs Temp 98.7 F 01/02/21 07:30 Pulse 75 01/02/21 17:00 Resp 17 01/02/21 17:00 BP 88/50 01/02/21 17:00 Pulse Ox 94 01/02/21 16:45 01/02/21 01/02/21 01/02/21 06:59 14:59 22:59 Intake Total 1400 / 2634.125 185 / 185 405.714 / 590.714 Output Total 750 / 1770 650 / 650 Balance 650 / 864.125 185 / 185 -244.286 / -59.286 Weight last 48 hrs Weight 197 lb 5 oz Weight 195 lb Physical Exam Narrative: EXAM NARRATIVE: General: The patient is awake and alert, appears tired Neck: No JVD Respiratory: Auscultation: Reduced breath sound bilaterally, crackles at lung bases Cardiovascular: Regular rate and rhythm, S1-S2 present, no murmur, no peripheral edema. Abdomen: Soft, nontender, nondistended, positive bowel sound Skin: No rash Neuro: Moving all extremities, no focal neurologic deficit. Urinary Catheter Management^: Sloan: Cath Placed During This Visit: yes Reason for Continuing Indwelling Catheter: Accurate Measurement of Urinary Output in Critically Ill Patients Urinary Catheter Date of Insertion: 12/22/20 Urinary Catheter Time of Insertion: 14:01 Data : 01/02/21 04:16 01/02/21 04:16 Micro: Microbiology 12/29/20 10:21 Urine Culture - Final Urine,Clean Catch Lola glabrata 12/31/20 13:29 Gram Stain - Final Lung Right Middle Lobe Bronchial Washings Culture - Preliminary 12/28/20 12:33 Blood Culture - Final Blood NO GROWTH AFTER 5 DAYS Attestation for Other Data: I personally reviewed and interpreted the following: Other data: I have reviewed his laboratory, microbiologic and radiologic data. A&P Assessment and plan (1) Staphylococcal pneumonia: The patient is growing MSSA from blood and the lung. His leukocytosis has improved. The catheter tip culture was negative. I am going to do a total of 2 weeks of anti-MSSA coverage starting from December 29. Status: Acute (2) Bacteremia due to Staphylococcus: The central line was removed and the patient has a midline catheter now. Status: Acute (3) Acute respiratory distress syndrome: The patient was extubated this afternoon. Currently is on 70% FiO2. The patient needs aggressive physical therapy. You will need to get out of bed tomorrow and work with the physical therapy team. Status: Acute (4) Pneumonia due to COVID-19 virus: The patient has completed 10-day course of dexamethasone. We will continue with imipenem for the time being. No microorganism grew from the bronchoscopy. Status: Acute (5) DVT (deep venous thrombosis): The left lower extremity DVT revealed resolution of the left popliteal vein DVT. For now, we will continue with the prophylactic dose Lovenox. Once the patient is stable, we will start him on a novel oral anticoagulant. He will need a total of 3 months therapy. Status: Acute (6) Septic shock: Resolved. 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
--- NOTE | 2021-01-02 18:44 | PC.NURSE ---
Shift Note Frequent safety and comfort rounds continue. Orders and/or nursing care completed as indicated. Patient monitored for response to intervention and treatment(s). Education provided includes oxygen safety, diet plan, and current plan of care. Patient verbalizes understanding but appears to be slightly confused after extubation. Patient reported overall pain of 7 on pain scale, relieved by 25mg bolus of fentanyl. Patient has denied any pain currently. He is currently on HHF Fio2 70, 40L. oxygen has remained in the 90's this shift. Currently no IV medications.
[2021-01-03] VITALS (90 sets, daily range): BP systolic 127–162; BP diastolic 66–101; PULSE 74–112; RESP 11–31; TEMP 36.5–37.1; O2SAT 89–97
[2021-01-03 00:36] LABS: Glucose Point of Care 86 mg/dL (70-110)
[2021-01-03 01:16] LABS: Glucose Point of Care 82 mg/dL (70-110)
[2021-01-03] MEDS: ipratropium-albuterol 3 mL Neb INHALATION ×7 (03:52→23:10)
--- NOTE | 2021-01-03 07:17 | PC.NURSE ---
Shift Note Frequent safety and comfort rounds continue. Pt repositioned q 2 hours. Orders and nursing care completed as indicated. Patient monitored for response to intervention and treatment. Education provided includes oxygen safety. Patient needs reinforcement.
[2021-01-03 07:35] LABS: Glucose Point of Care 121 mg/dL (70-110)
--- NOTE | 2021-01-03 08:07 | PC.NURSE ---
Morning assessment: Report Received, assessment revealed trace edema of left foot. Lung sounds diminished throughout. Facial ulcer draining. Bowel sounds are hyperactive throughout with report of liquid stool overnight and a large liquid stool this AM. Patient denies pain at this time and appears to be resting comfortably.
[2021-01-03] MEDS: pantoprazole DR 40 mg Tablet PO (08:40)
[2021-01-03] MEDS: fluconazole 100 mg Tablet 200 MG PO (08:40)
[2021-01-03] MEDS: neomycin-poly-bacitracin oint 28 gm 1 APPLIC TOPICAL ×2 (08:48→17:47)
[2021-01-03 09:07] LABS: Basophils % 0.6 %; Eosinophils # 0.1 10^3/uL (0.0-0.8); Eosinophils % 1.2 %; Hematocrit 32.2 % (42.0-52.0); Hemoglobin 10.7 g/dL (11.7-16.6); Lymphocytes # 0.6 10^3/uL (0.8-4.8); Lymphocytes % 8.7 %; Mean Corpuscular HGB Conc 33.2 g/dL (30.0-36.0); Mean Corpuscular Hemoglobin 30.1 pg (28.0-34.0); Mean Corpuscular Volume 90.7 fl (80-94); Mean Platelet Volume 11.7 fL (7.4-10.4); Monocytes # 0.5 10^3/uL (0.2-0.9); Monocytes % 6.8 %; Neutrophils # 5.91 10^3/uL (1.8-7.7); Neutrophils % 81.5 %; Nucleated Red Blood Cells % 0 %; Platelet Count 154 10^3/cmm (130-400); Red Blood Count 3.55 10^6/uL (4.1-5.3); Red Cell Distribution Width 12.8 % (12.1-15.1); White Blood Count 7.3 10^3/uL (4.0-10.0)
[2021-01-03 09:38] LABS: Blood Urea Nitrogen 19 mg/dL (8-23); Calcium 8.3 mg/dL (8.5-10.5); Carbon Dioxide 29 mmol/L (22-29); Chloride 104 mmol/L (98-107); Glomerular Filtration Rate 303.8 mL/min (90-130); Glucose 128 mg/dL (65-115); Osmolality Calculated 296 mOsm/kg (285-295); Sodium 141 mmol/L (136-145)
[2021-01-03 09:49] LABS: Anion Gap 11.3 (5-19); Potassium 3.3 mmol/L (3.5-5.1)
[2021-01-03 11:18] LABS: Glucose Point of Care 128 mg/dL (70-110)
[2021-01-03] MEDS: lidocaine 1% 5 ML in potassium chloride premix 100 ML 25 ML IV (12:06)
--- NOTE | 2021-01-03 14:16 | PC.NURSE ---
Family updated Pt's family has been updated. His daughter in law Loida was called and his brother Rex was able to facetime.
--- NOTE | 2021-01-03 14:41 | PM.PN ---
Subjective Subjective: Interval history: Patient was seen and examined, status post extubation, currently he is on heated high flow oxygen through nasal cannula 60% FiO2 at flow 40 L/min. No temperature spike. Medications: Reviewed: Yes Vitals/I&O/Wt Last Vital Signs Temp 98.7 F 01/03/21 10:15 Pulse 99 01/03/21 11:22 Resp 18 01/03/21 11:22 BP 145/101 01/03/21 11:00 Pulse Ox 91 01/03/21 11:22 01/02/21 01/03/21 01/03/21 22:59 06:59 14:59 Intake Total 505.714 / 690.714 100 / 790.714 100 / 100 Output Total 650 / 650 600 / 1250 450 / 450 Balance -144.286 / 40.714 -500 / -459.286 -350 / -350 Weight last 48 hrs Weight 89.494 kg Weight 89.499 kg Physical Exam HENMT: COMMON NORMALS: normocephalic and atraumatic HEAD & SCALP: normocephalic and atraumatic Resp: COMMON NORMALS: clear to auscultation bilaterally EFFORT & INSPECTION: Yes symmetric chest movement AUSCULTATION: clear to auscultation bilaterally Cardio: COMMON NORMALS: regular rate, regular rhythm, S1 normal heart sound present, S2 normal heart sound present, No gallops present (Cardio), No murmurs present (Cardio), No rub (Cardio) and Peripheral pulses 2+ throughout RATE: regular rate RHYTHM: regular rhythm HEART SOUNDS: S1 normal heart sound present and S2 normal heart sound present PERIPHERAL PULSES: Peripheral pulses 2+ throughout GI: COMMON NORMALS: Normal to inspection, nondistended, normoactive bowel sounds present, Soft to palpation, non-tender, No hepatosplenomegaly present and no masses AUSCULTATION: Yes normoactive bowel sounds PALPATION: Yes Soft to palpation and Yes No hepatosplenomegaly present RECTAL EXAM: Yes deferred Extremity: COMMON NORMALS: no clubbing, cyanosis or edema and no pedal edema Urinary Catheter Management^: Sloan: Cath Placed During This Visit: yes Reason for Continuing Indwelling Catheter: Accurate Measurement of Urinary Output in Critically Ill Patients Urinary Catheter Date of Insertion: 12/22/20 Urinary Catheter Time of Insertion: 14:01 Data : 01/03/21 09:00 01/03/21 09:00 Micro: Microbiology 12/31/20 13:29 Gram Stain - Final Lung Right Middle Lobe Bronchial Washings Culture - Final 12/29/20 10:21 Urine Culture - Final Urine,Clean Catch Lola glabrata 12/28/20 12:33 Blood Culture - Final Blood NO GROWTH AFTER 5 DAYS A&P Assessment and plan (1) Septic shock: Status: Acute (2) Bacteremia due to Staphylococcus: Status: Acute (3) Staphylococcal pneumonia: Status: Acute (4) Acute respiratory distress syndrome: Status: Acute (5) Pneumonia due to COVID-19 virus: COVID-19 pneumonia, possibly contribution of aspiration pneumonia with inadvertent extubation continue to reassess for other potential sources. Septic shock with persistent leukocytosis, fever, hypotension. CTA chest negative for PE Urine culture without growth so far. Sloan exchanged on 11/24. Blood Culture :MSSA Repeat Blood culture : Negative Urine culture : Lola Glabrata Sputum Culture : MSSA S/P Bronchoscopy : Patient was on imipenem. Has been switched to ceftriaxone, for MSSA coverage. Fluconazole Received monoclonal antibody this morning at [facility] reportedly Completed Decadron. Completed remdesivir S/P 1 Dose Actemra Hold baricitinib received 3 doses duoneb q6h, budesonide q12h Anticoagulation for Ac DVT.On Eliquis 5 mg po q12 h daily for 3 months. Reintubated after inadvertent extubation on 12/25. Status: Acute (6) Respiratory failure with hypoxia: Continue [facility]HFONC Pulmonary on board S/p Bronchoscopy Neb Pulmicort Status: Acute (7) DVT (deep venous thrombosis): Lovenox Monitor for bleeding. h/h in am Status: Acute (8) JAY (acute kidney injury): Renal function improving. Creatinine normalized. BUN improving. Sloan noted with partial obstruction, exchanged on 12/24. Status: Acute (9) Hyperkalemia: BMP in am Status: Acute (10) Transaminitis: Mild. Monitor. CMP in am Status: Acute Additional A&P Information Type 2 diabetes mellitus, moderate dose sliding scale, Lantus Periumbilical lump: Hernia without evidence of incarceration on ultrasound. Incidentally noted 1.7 x 1.5 x 2.8 cm ovoid hypoechoic lesion along superior margin of the left kidney, likely a splenule. 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
--- NOTE | 2021-01-03 15:39 | P.PN_ITS ---
Subjective Subjective: Interval history: The patient was seen and examined. He was resting in bed. Participated in physical therapy today. His oxygen saturation is in the mid 90s. The patient appears to be extremely weak. He is able to move all extremities but does have significant amount of weakness. Medications: Reviewed: Yes Vitals/I&O/Wt Last Vital Signs Temp 98.7 F 01/03/21 10:15 Pulse 92 01/03/21 15:19 Resp 24 H 01/03/21 15:00 BP 141/76 01/03/21 15:00 Pulse Ox 94 01/03/21 14:45 01/03/21 01/03/21 01/03/21 06:59 14:59 22:59 Intake Total 100 / 790.714 100 / 100 Output Total 600 / 1250 450 / 450 Balance -500 / -459.286 -350 / -350 Weight last 48 hrs Weight 197 lb 4.8 oz Weight 197 lb 5 oz Physical Exam Narrative: EXAM NARRATIVE: General: The patient is awake and alert, appears tired, able to answer questions appropriately Neck: No JVD Respiratory: Auscultation: Reduced breath sound bilaterally, crackles at lung bases Cardiovascular: Regular rate and rhythm, S1-S2 present, no murmur, no peripheral edema. Abdomen: Soft, nontender, nondistended, positive bowel sound Skin: No rash Neuro: Moving all extremities, no focal neurologic deficit. Urinary Catheter Management^: Sloan: Cath Placed During This Visit: yes Reason for Continuing Indwelling Catheter: Accurate Measurement of Urinary Output in Critically Ill Patients Urinary Catheter Date of Insertion: 12/22/20 Urinary Catheter Time of Insertion: 14:01 Data : 01/03/21 09:00 01/03/21 09:00 Micro: Microbiology 12/31/20 13:29 Gram Stain - Final Lung Right Middle Lobe Bronchial Washings Culture - Final 12/29/20 10:21 Urine Culture - Final Urine,Clean Catch Lola glabrata 12/28/20 12:33 Blood Culture - Final Blood NO GROWTH AFTER 5 DAYS Attestation for Other Data: I personally reviewed and interpreted the following: Other data: I have reviewed the patient's laboratory, [place] and radiologic data. A&P Assessment and plan (1) Staphylococcal pneumonia: The patient is growing MSSA from blood and the lung. His leukocytosis has improved. I am going to do a total of 2 weeks of anti-MSSA coverage starting from December 29. Going to discontinue the imipenem and start the patient on ceftriaxone which will be once a day dose and we can continue for 8 more days. Status: Acute (2) Bacteremia due to Staphylococcus: The central line was removed and the patient has a midline catheter now. Repeat blood cultures and catheter tip cultures have been negative. Status: Acute (3) Acute respiratory distress syndrome: The patient is doing very well. He is on high flow nasal cannula. The neck step is aggressive physical therapy. The patient will be a good candidate for long-term acute care. We will start working on that. Status: Acute (4) Pneumonia due to COVID-19 virus: The patient has completed 10-day course of dexamethasone. No new bacterial growth on bronchoscopy. We will continue with ceftriaxone at this time. Status: Acute (5) DVT (deep venous thrombosis): Starting the patient on apixaban today. He will need a total of 3 months of anticoagulation therapy. 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
[2021-01-03 17:14] LABS: Glucose Point of Care 170 mg/dL (70-110)
[2021-01-03] MEDS: insulin lispro 100 unit/1 mL SUBCUT (17:50)
--- NOTE | 2021-01-03 18:14 | PC.NURSE ---
Shift Note Frequent safety and comfort rounds continue. Orders and/or nursing care completed as indicated. Patient monitored for response to intervention and treatment(s). Education provided includes benefits of physical therapy, medication education at the time of administration, oxygen safety, current treatment plan and goals, diet [place] and goals, and transfer options. Patient verbalizes understanding, however reinforcement is suggested as patient frequently demonstrates confusion. Family updated on condition and current plan of care, verbalizes understanding. Patient was able to swallow three tablets in the morning with thickened to nectar water. Diet changed to liquid diet with thickener added, see speech evaluation notes. Patient denies pain and appears to be resting comfortably at this time.
[2021-01-03] MEDS: cefTRIAXone 2,000 MG in sodium chloride 0.9% (plus) 50 ML 100 MG IV (19:33)
[2021-01-03 20:17] LABS: Glucose Point of Care 110 mg/dL (70-110)
[2021-01-03] MEDS: apixaban 5 mg Tablet PO (21:19)
[2021-01-03] MEDS: acetaminophen 325 mg Tablet 650 MG PO (23:51)
[2021-01-04] VITALS (83 sets, daily range): BP systolic 123–157; BP diastolic 66–106; PULSE 68–121; RESP 18–34; TEMP 36.7; O2SAT 86–96
[2021-01-04] MEDS: ipratropium-albuterol 3 mL Neb INHALATION ×6 (03:14→23:35)
[2021-01-04 03:45] LABS: Basophils % 0.5 %; Eosinophils # 0.2 10^3/uL (0.0-0.8); Eosinophils % 2.8 %; Hematocrit 34.7 % (42.0-52.0); Hemoglobin 11.3 g/dL (11.7-16.6); Lymphocytes # 0.6 10^3/uL (0.8-4.8); Lymphocytes % 7.7 %; Mean Corpuscular HGB Conc 32.6 g/dL (30.0-36.0); Mean Corpuscular Hemoglobin 30.5 pg (28.0-34.0); Mean Corpuscular Volume 93.5 fl (80-94); Mean Platelet Volume 11.7 fL (7.4-10.4); Monocytes # 0.6 10^3/uL (0.2-0.9); Monocytes % 7.2 %; Neutrophils # 6.67 10^3/uL (1.8-7.7); Neutrophils % 79.6 %; Nucleated Red Blood Cells % 0.2 %; Platelet Count 199 10^3/cmm (130-400); Red Blood Count 3.71 10^6/uL (4.1-5.3); Red Cell Distribution Width 13.4 % (12.1-15.1); White Blood Count 8.4 10^3/uL (4.0-10.0)
[2021-01-04 04:06] LABS: Blood Urea Nitrogen 21 mg/dL (8-23); Calcium 8.3 mg/dL (8.5-10.5); Carbon Dioxide 25 mmol/L (22-29); Chloride 105 mmol/L (98-107); Glomerular Filtration Rate 303.8 mL/min (90-130); Glucose 153 mg/dL (65-115); Osmolality Calculated 300 mOsm/kg (285-295); Sodium 142 mmol/L (136-145)
[2021-01-04 04:08] LABS: Anion Gap 15.3 (5-19); Potassium 3.3 mmol/L (3.5-5.1)
--- NOTE | 2021-01-04 04:41 | PC.NURSE ---
Shift Note Frequent safety and comfort rounds continue. Pt was turned q 2 hours. Ice chips given at request and tolerated well. Orders and nursing care completed as indicated. Pt complained of sharp shooting pain through his left leg. On assessment pts left foot was very warm compared to right. Pedal and posterior tibial pulses were strong while the popliteal pulse was weak. Dr. Patel was notified and he stated that eliquis was sufficient enough for DVTs. Gave tylenol for pain. Patient monitored for response to intervention and treatment. Education provided includes pain management. Patient verbalized understanding but needs reinforcement.
[2021-01-04 07:38] LABS: Glucose Point of Care 168 mg/dL (70-110)
[2021-01-04] MEDS: insulin lispro 100 unit/1 mL SUBCUT ×3 (07:40→21:41)
[2021-01-04] MEDS: fluconazole 100 mg Tablet 200 MG PO (08:41)
[2021-01-04] MEDS: polyethylene glycol 3350 Pkt 17 gm PO (08:41)
[2021-01-04] MEDS: pantoprazole DR 40 mg Tablet PO (08:41)
[2021-01-04] MEDS: magnesium hydroxide 30 mL UDC PO (08:41)
[2021-01-04] MEDS: bisacodyl 10 mg Supp PR (08:41)
[2021-01-04] MEDS: apixaban 5 mg Tablet PO ×2 (08:44→21:26)
[2021-01-04] MEDS: neomycin-poly-bacitracin oint 28 gm 1 APPLIC TOPICAL ×2 (10:18→18:13)
--- NOTE | 2021-01-04 15:41 | PC.NURSE ---
giving small amts of soft food cold as tolerated better with mouth ulcers noted at this time up while eating remains very weak needs assist with eating and all care large loose bm noted and dr aware to hold all laxitives
--- NOTE | 2021-01-04 16:54 | PM.PN ---
Subjective Subjective: Interval history: Patient was seen and examined this morning, overall he continues to do better, currently on heated high flow oxygen 50% FiO2 40 L per/min Medications: Reviewed: Yes Vitals/I&O/Wt Last Vital Signs Temp 98.1 F 01/04/21 06:00 Pulse 76 01/04/21 15:30 Resp 28 H 01/04/21 15:30 BP 151/87 01/04/21 15:30 Pulse Ox 94 01/04/21 15:30 01/04/21 01/04/21 01/04/21 06:59 14:59 22:59 Intake Total 450 / 450 Output Total Balance 450 / 450 Weight last 48 hrs Weight 89.358 kg Weight 89.494 kg Physical Exam Const: COMMON NORMALS: patient oriented x3 HENMT: COMMON NORMALS: normocephalic and atraumatic HEAD & SCALP: normocephalic and atraumatic Resp: COMMON NORMALS: clear to auscultation bilaterally AUSCULTATION: clear to auscultation bilaterally OTHER: Minimal occasional expiratory wheezing Cardio: COMMON NORMALS: regular rate, regular rhythm, S1 normal heart sound present, S2 normal heart sound present, No gallops present (Cardio), No murmurs present (Cardio), No rub (Cardio) and Peripheral pulses 2+ throughout RATE: regular rate RHYTHM: regular rhythm HEART SOUNDS: S1 normal heart sound present and S2 normal heart sound present PERIPHERAL PULSES: Peripheral pulses 2+ throughout GI: COMMON NORMALS: Normal to inspection, nondistended, normoactive bowel sounds present, Soft to palpation, non-tender, No hepatosplenomegaly present and no masses AUSCULTATION: Yes normoactive bowel sounds PALPATION: Yes Soft to palpation and Yes No hepatosplenomegaly present RECTAL EXAM: Yes deferred Extremity: COMMON NORMALS: no clubbing, cyanosis or edema and no pedal edema Neuro: COMMON NORMALS: patient oriented x3 Urinary Catheter Management^: Sloan: Cath Placed During This Visit: yes Reason for Continuing Indwelling Catheter: Accurate Measurement of Urinary Output in Critically Ill Patients Urinary Catheter Date of Insertion: 12/22/20 Urinary Catheter Time of Insertion: 14:01 Data : 01/04/21 03:20 01/04/21 03:20 Micro: Microbiology 12/29/20 22:12 Blood Culture - Final Blood NO GROWTH AFTER 5 DAYS 12/29/20 22:06 Blood Culture - Final Blood NO GROWTH AFTER 5 DAYS A&P Assessment and plan (1) Septic shock: Status: Acute (2) Bacteremia due to Staphylococcus: Status: Acute (3) Staphylococcal pneumonia: Status: Acute (4) Acute respiratory distress syndrome: Status: Acute (5) Pneumonia due to COVID-19 virus: COVID-19 pneumonia, possibly contribution of aspiration pneumonia with inadvertent extubation continue to reassess for other potential sources. Septic shock with persistent leukocytosis, fever, hypotension. CTA chest negative for PE Urine culture without growth so far. Sloan exchanged on 11/24. Blood Culture :MSSA Repeat Blood culture : Negative Urine culture : Lola Glabrata Sputum Culture : MSSA S/P Bronchoscopy : Patient was on imipenem. Has been switched to ceftriaxone, for MSSA coverage. Fluconazole Received monoclonal antibody this morning at [facility] reportedly Completed Decadron. Completed remdesivir S/P 1 Dose Actemra Hold baricitinib received 3 doses duoneb q6h, budesonide q12h Anticoagulation for Ac DVT.On Eliquis 5 mg po q12 h daily for 3 months. Reintubated after inadvertent extubation on 12/25. Status: Acute (6) Respiratory failure with hypoxia: Continue [facility]HFONC Pulmonary on board S/p Bronchoscopy Neb Pulmicort Status: Acute (7) DVT (deep venous thrombosis): Lovenox Monitor for bleeding. h/h in am Status: Acute (8) JAY (acute kidney injury): Renal function improving. Creatinine normalized. BUN improving. Sloan noted with partial obstruction, exchanged on 12/24. Status: Acute (9) Hyperkalemia: BMP in am Status: Acute (10) Transaminitis: Mild. Monitor. CMP in am Status: Acute Additional A&P Information Type 2 diabetes mellitus, moderate dose sliding scale, Lantus Periumbilical lump: Hernia without evidence of incarceration on ultrasound. Incidentally noted 1.7 x 1.5 x 2.8 cm ovoid hypoechoic lesion along superior margin of the left kidney, likely a splenule. Plan for the day: D/w pulmonary Did not tolerate wean Resumed on sedation Full vent support ABG in am Continue current meds Attestations Medical Necessity Statement*: Patient is still in hospital for management of pneumonia. 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
[2021-01-04 17:40] LABS: Glucose Point of Care 200 mg/dL (70-110)
--- NOTE | 2021-01-04 19:19 | NUR.SHIFT ---
Shift Note Frequent safety and comfort rounds continue. Orders and/or nursing care completed as indicated. Patient monitored for response to intervention and treatment(s). Education provided includes[]. Patient and/or authorization representative [ResponseToTeaching]. Will continue to monitor. assisted with eating cold foods today tolerated much better with sores in mouth and lips more alert at this time asking questions
[2021-01-04] MEDS: cefTRIAXone 2,000 MG in sodium chloride 0.9% (plus) 50 ML 100 MG IV (19:46)
[2021-01-04 20:01] LABS: Glucose Point of Care 191 mg/dL (70-110)
[2021-01-04] MEDS: trazodone 50 mg Tablet PO (21:26)
[2021-01-04] MEDS: artificial tears Op Soln 15 mL Btl 1 DROP EYE-BOTH (21:26)
[2021-01-05] VITALS (74 sets, daily range): BP systolic 114–168; BP diastolic 66–108; PULSE 69–120; RESP 16–225; TEMP 37.3; O2SAT 86–98
[2021-01-05] MEDS: ipratropium-albuterol 3 mL Neb INHALATION ×6 (03:10→23:21)
[2021-01-05 05:21] LABS: Basophils # 0.1 10^3/uL (0.0-0.1); Basophils % 0.8 %; Eosinophils # 0.4 10^3/uL (0.0-0.8); Eosinophils % 5.1 %; Hematocrit 39.6 % (42.0-52.0); Hemoglobin 12.9 g/dL (11.7-16.6); Lymphocytes # 0.8 10^3/uL (0.8-4.8); Lymphocytes % 11.4 %; Mean Corpuscular HGB Conc 32.6 g/dL (30.0-36.0); Mean Corpuscular Hemoglobin 30.6 pg (28.0-34.0); Mean Corpuscular Volume 94.1 fl (80-94); Mean Platelet Volume 10.6 fL (7.4-10.4); Monocytes # 0.4 10^3/uL (0.2-0.9); Monocytes % 5.8 %; Neutrophils # 5.29 10^3/uL (1.8-7.7); Nucleated Red Blood Cells # 0.1 /100WBC; Nucleated Red Blood Cells % 1.1 %; Platelet Count 258 10^3/cmm (130-400); Red Blood Count 4.21 10^6/uL (4.1-5.3); Red Cell Distribution Width 14.3 % (12.1-15.1); White Blood Count 7.4 10^3/uL (4.0-10.0)
--- NOTE | 2021-01-05 06:19 | PC.NURSE ---
Shift Note Frequent safety and comfort rounds continue. Patient repositioned q 2 hours. Confused throughout most of the shift until about 0600. Dr. Patel notified pt has not been sleeping and trazadone was ordered. Orders and nursing care completed as indicated. Patient monitored for response to intervention and treatment. Pt still did not sleep. Educated on the importance of inceptive spirometer use. Patient needs reinforcement.
[2021-01-05 06:24] LABS: Anion Gap 15.1 (5-19); Blood Urea Nitrogen 15 mg/dL (8-23); Calcium 8.6 mg/dL (8.5-10.5); Carbon Dioxide 25 mmol/L (22-29); Chloride 107 mmol/L (98-107); Glucose 153 mg/dL (65-115); Osmolality Calculated 302 mOsm/kg (285-295); Potassium 3.1 mmol/L (3.5-5.1); Sodium 144 mmol/L (136-145)
[2021-01-05 07:40] LABS: Glucose Point of Care 163 mg/dL (70-110)
[2021-01-05 07:53] LABS: Neutrophils % 76.9 %; Slide Review Slide Review Perform
[2021-01-05] MEDS: polyethylene glycol 3350 Pkt 17 gm PO (07:59)
[2021-01-05] MEDS: apixaban 5 mg Tablet PO ×2 (08:00→20:26)
[2021-01-05] MEDS: insulin lispro 100 unit/1 mL SUBCUT ×3 (08:00→17:23)
[2021-01-05] MEDS: pantoprazole DR 40 mg Tablet PO (08:00)
[2021-01-05] MEDS: fluconazole 100 mg Tablet 200 MG PO (08:00)
[2021-01-05] MEDS: neomycin-poly-bacitracin oint 28 gm 1 APPLIC TOPICAL ×2 (08:03→17:25)
[2021-01-05] MEDS: lidocaine 1% 5 ML in potassium chloride premix 100 ML 25 ML IV (09:22)
--- NOTE | 2021-01-05 09:49 | PC.CHAP ---
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 story reader visit [] Patient/Family/Request visit [] Outpatient visit [] Follow-up visit [] Physician referral [] Code/Alert [x] Routine visit [] Staff referral [] Actively dying [] Patient sleeping [] Family support [] [] Out of room [] Palliative care [] [] Receiving care in room [] Pre-surgical visit [] Trauma [] Long length of stay [x] ICU visit [x] Other:covid patient.. first time story reader entered.. patient setting up in bed.. being fed Relational/Emotional Strength [] Patient feels connected with others/family/visitors/staff [] Distress [] Loneliness/isolation [] Abandonment Spirituality of Patient [] Person of Elvia [] Attends Taoism of their Elvia [] Believes in Prayer [] Reads Bible or Scientology materials [] There are Spiritual issues to be addressed Pigment Pusher Interventions [x] Prayer [x] Active listening [x] Non-anxious presence [x] Spiritual/emotional support [] Crisis/trauma care [] Spiritual counseling [] Bereavement support [] Provided bereavement packet [] Provided Bible/devotional materials [] Provided toy/stuffed animal, coloring book to patient or family member [] Provided Communion [] Anointing/[place] [] Salvation [x] Completed spiritual assessment [] Other: Impact on Illness or Injury [] Angry [] Fearful [] Anxious [] Often cries [] Exhaustion [] Unable to work [] Unable to attend baptist [] Unable to walk/stand [] Unable to read [] Unable to drive [] Unable to eat/drink [] Unable to sleep [] Unable to be with family [] Patient intubated [] Other: Summary brief conversation.. very weak Time spent with patient 5 min
[2021-01-05 11:37] LABS: Glucose Point of Care 151 mg/dL (70-110)
--- NOTE | 2021-01-05 12:53 | PM.PN ---
Subjective Subjective: Interval history: Patient was seen and examined this morning, Currently is extremely weak, due to critical illness myopathy, he has some element of ICU delirium also, supplemental oxygen requirement actuating anywhere from 50 to 60% FiO2 on heated high flow oxygen through nasal cannula. Continues to be afebrile, p.o. intake is slowly increasing Medications: Reviewed: Yes Vitals/I&O/Wt Last Vital Signs Temp 98.1 F 01/04/21 06:00 Pulse 89 01/05/21 11:15 Resp 27 H 01/05/21 11:15 BP 151/90 01/05/21 11:15 Pulse Ox 93 01/05/21 11:15 01/04/21 01/05/21 01/05/21 22:59 06:59 14:59 Intake Total 450 / 900 150 / 1050 120 / 120 Output Total 450 / 450 475 / 925 Balance 0 / 450 -325 / 125 120 / 120 Weight last 48 hrs Weight 85.729 kg Weight 89.358 kg Physical Exam Const: COMMON NORMALS: patient oriented x3 HENMT: COMMON NORMALS: normocephalic and atraumatic HEAD & SCALP: normocephalic and atraumatic Resp: EFFORT & INSPECTION: Yes symmetric chest movement OTHER: Minimal occasional expiratory wheezing Cardio: COMMON NORMALS: regular rate, regular rhythm, S1 normal heart sound present, S2 normal heart sound present, No gallops present (Cardio), No murmurs present (Cardio), No rub (Cardio) and Peripheral pulses 2+ throughout RATE: regular rate RHYTHM: regular rhythm HEART SOUNDS: S1 normal heart sound present and S2 normal heart sound present PERIPHERAL PULSES: Peripheral pulses 2+ throughout GI: COMMON NORMALS: Normal to inspection, nondistended, normoactive bowel sounds present, Soft to palpation, non-tender, No hepatosplenomegaly present and no masses AUSCULTATION: Yes normoactive bowel sounds PALPATION: Yes Soft to palpation and Yes No hepatosplenomegaly present RECTAL EXAM: Yes deferred Extremity: COMMON NORMALS: no clubbing, cyanosis or edema and no pedal edema Neuro: COMMON NORMALS: patient oriented x3 Urinary Catheter Management^: Sloan: Cath Placed During This Visit: yes Reason for Continuing Indwelling Catheter: Accurate Measurement of Urinary Output in Critically Ill Patients Urinary Catheter Date of Insertion: 12/22/20 Urinary Catheter Time of Insertion: 14:01 Data : 01/05/21 05:06 01/05/21 05:06 A&P Assessment and plan (1) Septic shock: Status: Acute (2) Bacteremia due to Staphylococcus: Status: Acute (3) Staphylococcal pneumonia: Status: Acute (4) Acute respiratory distress syndrome: Status: Acute (5) Pneumonia due to COVID-19 virus: COVID-19 pneumonia, possibly contribution of aspiration pneumonia with inadvertent extubation continue to reassess for other potential sources. Septic shock with persistent leukocytosis, fever, hypotension. CTA chest negative for PE Urine culture without growth so far. Sloan exchanged on 11/24. Blood Culture :MSSA Repeat Blood culture : Negative Urine culture : Lola Glabrata Sputum Culture : MSSA S/P Bronchoscopy : Patient was on imipenem.Has been switched to ceftriaxone on01/03, for MSSA coverage. 2 weeks of IV ceftriaxone antibiotic. Fluconazole Received monoclonal antibody this morning at [facility] reportedly Completed Decadron. Completed remdesivir S/P 1 Dose Actemra Hold baricitinib received 3 doses duoneb q6h, budesonide q12h Anticoagulation for Ac DVT.On Eliquis 5 mg po q12 h daily for 3 months. Reintubated after inadvertent extubation on 12/25. Status: Acute (6) Respiratory failure with hypoxia: Continue [facility]C Pulmonary on board S/p Bronchoscopy Neb Pulmicort Status: Acute (7) DVT (deep venous thrombosis): On Eliquis Monitor for bleeding. h/h in am Status: Acute (8) JAY (acute kidney injury): Renal function improving. Creatinine normalized. BUN improving. Sloan noted with partial obstruction, exchanged on 12/24. Status: Acute (9) Hyperkalemia: BMP in am Status: Acute (10) Transaminitis: Mild. Monitor. CMP in am Status: Acute Additional A&P Information Type 2 diabetes mellitus, moderate dose sliding scale, Lantus Periumbilical lump: Hernia without evidence of incarceration on ultrasound. Incidentally noted 1.7 x 1.5 x 2.8 cm ovoid hypoechoic lesion along superior margin of the left kidney, likely a splenule. Disposition: Patient will need extensive rehabilitation. He is currently still requiring heated high flow oxygen. [facility] Attestations Medical Necessity Statement*: Patient needs to be in hospital for management of pneumonia. Coding Level of Care Code Acute Accountant Clerk for [facility] Fwd Exam Detailed Diagnoses Septic shock A41.9; R65.21 Bacteremia due to Staphylococcus R78.81; B95.8 Staphylococcal pneumonia J15.20 Acute respiratory distress syndrome J80 Pneumonia due to COVID-19 virus U07.1; J12.82 Respiratory failure with hypoxia J96.91 DVT (deep venous thrombosis) I82.409 JAY (acute kidney injury) N17.9 Hyperkalemia E87.5 Transaminitis R74.01
[2021-01-05 17:17] LABS: Glucose Point of Care 187 mg/dL (70-110)
--- NOTE | 2021-01-05 17:56 | PC.NURSE ---
Shift Note Frequent safety and comfort rounds continue. Orders and nursing care completed as indicated. Pt remains on HHF 50L at 60%. Pt refused meals today, reported he was not hungry. PT work with Mr. Chahal today. Pt got up to BSC with total assist and had bowel movement. Pt placed bad and bed and turn frequently due to high risk of developing pressure sores. OT got pt up to side of bed, pt could only remain sitting up for three minutes before laying back down in bed. Family called and updated on patient's status. Brother said he would visit today but never showed up. Potassium replacement given, see mar, due to low potassium level, see labs. Patient monitored for response to intervention and treatments.Pt had 500mL out in urine this shift. Education provided includes frequent position changes due to high risk of pressure injury, and new medications. Patient needs reinforcement with teaching and possibly an additional family member present, as pt has bit of confusion. Will continue to monitor.
[2021-01-05] MEDS: cefTRIAXone 2,000 MG in sodium chloride 0.9% (plus) 50 ML 100 MG IV (20:02)
[2021-01-05 20:09] LABS: Glucose Point of Care 138 mg/dL (70-110)
[2021-01-06] VITALS (34 sets, daily range): BP systolic 124–158; BP diastolic 74–106; PULSE 77–118; RESP 16–33; TEMP 36.6–37.1; O2SAT 87–98
[2021-01-06] MEDS: ipratropium-albuterol 3 mL Neb INHALATION ×5 (03:48→20:26)
[2021-01-06 04:54] LABS: Hematocrit 42.1 % (42.0-52.0); Hemoglobin 13.1 g/dL (11.7-16.6); Mean Corpuscular HGB Conc 31.1 g/dL (30.0-36.0); Mean Corpuscular Hemoglobin 30.6 pg (28.0-34.0); Mean Corpuscular Volume 98.4 fl (80-94); Mean Platelet Volume 10.4 fL (7.4-10.4); Platelet Count 281 10^3/cmm (130-400); Red Blood Count 4.28 10^6/uL (4.1-5.3); Red Cell Distribution Width 15.1 % (12.1-15.1)
[2021-01-06 05:17] LABS: Blood Urea Nitrogen 17 mg/dL (8-23); Calcium 8.6 mg/dL (8.5-10.5); Carbon Dioxide 21 mmol/L (22-29); Chloride 108 mmol/L (98-107); Glomerular Filtration Rate 168.5 mL/min (90-130); Glucose 192 mg/dL (65-115); Osmolality Calculated 303 mOsm/kg (285-295); Sodium 143 mmol/L (136-145)
[2021-01-06 05:21] LABS: Anion Gap 17.8 (5-19); Potassium 3.8 mmol/L (3.5-5.1)
[2021-01-06 06:06] LABS: Slide Review Slide Review Perform
[2021-01-06 06:09] LABS: Absolute Eosinophils 0.3 10^3/cmm (0.0-0.7); Absolute Segmented Neutrophil 7.4 10/cmm (1.6-7.1); Band Neutrophils Absolute 1.2 10^3/cmm (0.0-1.2); Eosinophils 3 %; Lymphocytes 7 %; Lymphocytes Absolute 0.8 10^3/cmm (1.2-3.4); Monocytes Absolute 0.1 10^3/cmm (0.1-0.6); Segmented Neutrophils 74 %; Total Cells Counted 100 (0-100)
[2021-01-06 06:10] LABS: Absolute Neutrophil 8.6 10^3/cmm (1.4-6.5); Platelet Estimate Normal (Normal)
[2021-01-06] MEDS: artificial tears Op Soln 15 mL Btl 1 DROP EYE-BOTH ×3 (06:47→21:12)
[2021-01-06 08:00] LABS: Glucose Point of Care 171 mg/dL (70-110)
[2021-01-06] MEDS: apixaban 5 mg Tablet PO ×2 (08:28→20:02)
[2021-01-06] MEDS: pantoprazole DR 40 mg Tablet PO (08:28)
[2021-01-06] MEDS: polyethylene glycol 3350 Pkt 17 gm PO (08:28)
[2021-01-06] MEDS: insulin lispro 100 unit/1 mL SUBCUT ×4 (08:29→20:03)
[2021-01-06] MEDS: neomycin-poly-bacitracin oint 28 gm 1 APPLIC TOPICAL ×2 (08:29→18:10)
--- NOTE | 2021-01-06 10:29 | P.PN_ITS ---
Subjective Subjective: Interval history: Patient was seen and examined this morning,no acute events overnight, continue to be on [facility]. Medications: Reviewed: Yes Vitals/I&O/Wt Last Vital Signs Temp 98.0 F 01/06/21 06:00 Pulse 89 01/06/21 09:00 Resp 27 H 01/06/21 09:00 BP 145/86 01/06/21 09:00 Pulse Ox 95 01/06/21 09:00 01/05/21 01/06/21 01/06/21 22:59 06:59 14:59 Intake Total 270 / 495 600 / 600 Output Total 500 / 500 450 / 950 Balance -230 / -5 -450 / -455 600 / 600 Weight last 48 hrs Weight 84.958 kg Weight 85.729 kg Physical Exam Const: COMMON NORMALS: patient oriented x3 HENMT: COMMON NORMALS: normocephalic and atraumatic HEAD & SCALP: normocephalic and atraumatic Resp: EFFORT & INSPECTION: Yes symmetric chest movement OTHER: Minimal occasional expiratory wheezing Cardio: COMMON NORMALS: regular rate, regular rhythm, S1 normal heart sound present, S2 normal heart sound present, No gallops present (Cardio), No murmurs present (Cardio), No rub (Cardio) and Peripheral pulses 2+ throughout RATE: regular rate RHYTHM: regular rhythm HEART SOUNDS: S1 normal heart sound present and S2 normal heart sound present PERIPHERAL PULSES: Peripheral pulses 2+ throughout GI: COMMON NORMALS: Normal to inspection, nondistended, normoactive bowel s ounds present, Soft to palpation, non-tender, No hepatosplenomegaly present and no masses AUSCULTATION: Yes normoactive bowel sounds PALPATION: Yes Soft to palpation and Yes No hepatosplenomegaly present RECTAL EXAM: Yes deferred Extremity: COMMON NORMALS: no clubbing, cyanosis or edema and no pedal edema Neuro: COMMON NORMALS: patient oriented x3 Urinary Catheter Management^: Sloan: Cath Placed During This Visit: yes Reason for Continuing Indwelling Catheter: Accurate Measurement of Urinary Output in Critically Ill Patients Urinary Catheter Date of Insertion: 12/22/20 Urinary Catheter Time of Insertion: 14:01 Data : 01/06/21 04:25 01/06/21 04:25 A&P Assessment and plan (1) Septic shock: Status: Acute (2) Bacteremia due to Staphylococcus: Status: Acute (3) Staphylococcal pneumonia: Status: Acute (4) Acute respiratory distress syndrome: Status: Acute (5) Pneumonia due to COVID-19 virus: COVID-19 pneumonia, possibly contribution of aspiration pneumonia with inadvertent extubation continue to reassess for other potential sources. Septic shock with persistent leukocytosis, fever, hypotension. CTA chest negative for PE Urine culture without growth so far. Sloan exchanged on 11/24. Blood Culture :MSSA Repeat Blood culture : Negative Urine culture : Lola Glabrata Sputum Culture : MSSA S/P Bronchoscopy : Patient was on imipenem.Has been switched to ceftriaxone on01/03, for MSSA coverage. 2 weeks of IV ceftriaxone antibiotic. Fluconazole Received monoclonal antibody this morning at [facility] reportedly Completed Decadron. Completed remdesivir S/P 1 Dose Actemra Hold baricitinib received 3 doses duoneb q6h, budesonide q12h Anticoagulation for Ac DVT.On Eliquis 5 mg po q12 h daily for 3 months. Reintubated after inadvertent extubation on 12/25. Status: Acute (6) Respiratory failure with hypoxia: Continue [facility] Pulmonary on board S/p Bronchoscopy Neb Pulmicort Status: Acute (7) DVT (deep venous thrombosis): On Eliquis Monitor for bleeding. h/h in am Status: Acute (8) JAY (acute kidney injury): Renal function improving. Creatinine normalized. BUN improving. Sloan noted with partial obstruction, exchanged on 12/24. Status: Acute (9) Hyperkalemia: BMP in am Status: Acute (10) Transaminitis: Mild. Monitor. CMP in am Status: Acute Additional A&P Information Type 2 diabetes mellitus, moderate dose sliding scale, Lantus Periumbilical lump: Hernia without evidence of incarceration on ultrasound. Incidentally noted 1.7 x 1.5 x 2.8 cm ovoid hypoechoic lesion along superior margin of the left kidney, likely a splenule. Disposition: Patient will need extensive rehabilitation. He is currently still requiring heated high flow oxygen. Current plan is to transfer the [facility]. Attestations Medical Necessity Statement*: Patient needs to be in hospital for the management of PNA awaiting placement to [facility] Coding Level of Care Code Acute Commercial Subcontractor for [facility] Fw Diagnoses Septic shock A41.9; R65.21 Bacteremia due to Staphylococcus R78.81; B95.8 Staphylococcal pneumonia J15.20 Acute respiratory distress syndrome J80 Pneumonia due to COVID-19 virus U07.1; J12.82 Respiratory failure with hypoxia J96.91 DVT (deep venous thrombosis) I82.409 JAY (acute kidney injury) N17.9 Hyperkalemia E87.5 Transaminitis R74.01
--- NOTE | 2021-01-06 12:23 | PC.NURSE ---
1100:refused finger stick. leave me alone
--- NOTE | 2021-01-06 12:24 | PC.NURSE ---
nursing students able to get blood sugar w/o pt refusing.
[2021-01-06 12:45] LABS: Glucose Point of Care 166 mg/dL (70-110)
--- NOTE | 2021-01-06 13:23 | PC.NURSE ---
agreed to get out of bed, but wants to go outside. o.t. here.
--- NOTE | 2021-01-06 14:13 | PC.NURSE ---
remains up in chair.
[2021-01-06 17:25] LABS: Glucose Point of Care 166 mg/dL (70-110)
--- NOTE | 2021-01-06 18:32 | PC.NURSE ---
noon insulin missed
--- NOTE | 2021-01-06 18:36 | PC.NURSE ---
back to bed with max assist. cem. up well. took 1/2 milkshake.
--- NOTE | 2021-01-06 18:48 | PC.NURSE ---
ptl bath done, note lare bruised area to left lower abd with small firm area to lateral area of bruise. doesnt c/o pain in that area. dressing hanged to right picc site with large bruise to right ac area with game developer eccomosis within large bruise
[2021-01-06] MEDS: cefTRIAXone 2,000 MG in sodium chloride 0.9% (plus) 50 ML 100 MG IV (19:54)
[2021-01-06 20:01] LABS: Glucose Point of Care 158 mg/dL (70-110)
[2021-01-06] MEDS: lanolin oint 7 gm 1 APPLIC TOPICAL (21:12)
[2021-01-06] MEDS: trazodone 50 mg Tablet PO (21:12)
[2021-01-07] VITALS (31 sets, daily range): BP systolic 103–144; BP diastolic 62–94; PULSE 69–112; RESP 16–34; TEMP 36.3–37.2; O2SAT 89–96
[2021-01-07] MEDS: ipratropium-albuterol 3 mL Neb INHALATION ×5 (03:27→20:19)
[2021-01-07 07:32] LABS: Glucose Point of Care 158 mg/dL (70-110)
[2021-01-07] MEDS: apixaban 5 mg Tablet PO ×2 (09:23→20:12)
[2021-01-07] MEDS: neomycin-poly-bacitracin oint 28 gm 1 APPLIC TOPICAL ×2 (09:23→17:18)
[2021-01-07] MEDS: artificial tears Op Soln 15 mL Btl 1 DROP EYE-BOTH ×2 (09:23→17:19)
[2021-01-07] MEDS: polyethylene glycol 3350 Pkt 17 gm PO (09:23)
[2021-01-07] MEDS: insulin lispro 100 unit/1 mL SUBCUT ×3 (09:24→20:12)
--- NOTE | 2021-01-07 10:34 | PC.CHAP ---
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 certified registered locksmith visit [] Patient/Family/Request visit [] Outpatient visit [] Follow-up visit [] Physician referral [] Code/Alert [x] Routine visit [] Staff referral [] Actively dying [] Patient sleeping [] Family support [] [] Out of room [] Palliative care [] [x] Receiving care in room [] Pre-surgical visit [] Trauma [] Long length of stay [x] ICU visit [x] Other: physical therapy Relational/Emotional Strength [] Patient feels connected with others/family/visitors/staff [] Distress [] Loneliness/isolation [] Abandonment Spirituality of Patient [] Person of Elvia [] Attends Presybeterian of their Elvia [] Believes in Prayer [] Reads Bible or Episcopal materials [] There are Spiritual issues to be addressed Lens Mold Setter Interventions [x] Prayer [] Active listening [] Non-anxious presence [] Spiritual/emotional support [] Crisis/trauma care [] Spiritual counseling [] Bereavement support [] Provided bereavement packet [] Provided Bible/devotional materials [] Provided toy/stuffed animal, coloring book to patient or family member [] Provided Communion [] Anointing/[place] [] Salvation [x] Completed spiritual assessment [] Other: Impact on Illness or Injury [] Angry [] Fearful [] Anxious [] Often cries [] Exhaustion [] Unable to work [] Unable to attend restorationist [] Unable to walk/stand [] Unable to read [] Unable to drive [] Unable to eat/drink [] Unable to sleep [] Unable to be with family [] Patient intubated [] Other: Summary Time spent with patient
[2021-01-07 12:44] LABS: Glucose Point of Care 167 mg/dL (70-110)
--- NOTE | 2021-01-07 15:44 | PC.NURSE ---
1530-o.t. here to assist pt. back to bed. very little wt. bearing.
--- NOTE | 2021-01-07 16:30 | PC.NURSE ---
range of motion exercises to 4 limbs. cem. well right cheek wound improving. cleaned with n.s and triple antibiotic applied.
--- NOTE | 2021-01-07 17:00 | P.PN_ITS ---
Subjective Subjective: Interval history: Patient was seen and examined this morning, continue to do better, has been transitioned to HFNC: Currently requiring 7 Ls oxygen through nasal cannula. He was given lab break today, vitals have been stable, did well with physical therapy. Medications: Reviewed: Yes Vitals/I&O/Wt Last Vital Signs Temp 98.1 F 01/07/21 13:00 Pulse 78 01/07/21 16:04 Resp 16 01/07/21 16:01 BP 133/89 01/07/21 15:00 Pulse Ox 95 01/07/21 16:01 01/07/21 01/07/21 01/07/21 06:59 14:59 22:59 Intake Total 500 / 1580 480 / 480 Output Total 275 / 1125 Balance 225 / 455 480 / 480 Weight last 48 hrs Weight 86.455 kg Weight 84.958 kg Physical Exam Narrative: EXAM NARRATIVE: Alert awake and oriented Const: COMMON NORMALS: patient oriented x3 HENMT: COMMON NORMALS: normocephalic and atraumatic HEAD & SCALP: normocephalic and atraumatic Resp: COMMON NORMALS: clear to auscultation bilaterally AUSCULTATION: clear to auscultation bilaterally OTHER: Minimal occasional expiratory wheezing Cardio: COMMON NORMALS: regular rate, regular rhythm, S1 normal heart sound present, S2 normal heart sound present, No gallops present (Cardio), No murmurs present (Cardio), No rub (Cardio) and Peripheral pulses 2+ throughout RATE: regular rate RHYTHM: regular rhythm HEART SOUNDS: S1 normal heart sound present and S2 normal heart sound present PERIPHERAL PULSES: Peripheral pulses 2+ throughout GI: COMMON NORMALS: Normal to inspection, nondistended, normoactive bowel sounds present, Soft to palpation, non-tender, No hepatosplenomegaly present and no masses AUSCULTATION: Yes normoactive bowel sounds PALPATION: Yes Soft to palpation and Yes No hepatosplenomegaly present RECTAL EXAM: Yes deferred Extremity: COMMON NORMALS: no clubbing, cyanosis or edema and no pedal edema Neuro: COMMON NORMALS: patient oriented x3 Urinary Catheter Management^: Sloan: Cath Placed During This Visit: yes Reason for Continuing Indwelling Catheter: Accurate Measurement of Urinary Output in Critically Ill Patients Urinary Catheter Date of Insertion: 12/22/20 Urinary Catheter Time of Insertion: 14:01 Data : 01/06/21 04:25 01/06/21 04:25 A&P Assessment and plan (1) Septic shock: Status: Acute (2) Bacteremia due to Staphylococcus: Status: Acute (3) Staphylococcal pneumonia: Status: Acute (4) Acute respiratory distress syndrome: Status: Acute (5) Pneumonia due to COVID-19 virus: COVID-19 pneumonia, possibly contribution of aspiration pneumonia with inadvertent extubation continue to reassess for other potential sources. Septic shock with persistent leukocytosis, fever, hypotension. CTA chest negative for PE Urine culture without growth so far. Sloan exchanged on 11/24. Blood Culture :MSSA Repeat Blood culture : Negative Urine culture : Lola Glabrata Sputum Culture : MSSA S/P Bronchoscopy : Patient was on imipenem.Has been switched to ceftriaxone on01/03, for MSSA coverage. 2 weeks of IV ceftriaxone antibiotic. Fluconazole Received monoclonal antibody this morning at [facility] reportedly Completed Decadron. Completed remdesivir S/P 1 Dose Actemra Hold baricitinib received 3 doses duoneb q6h, budesonide q12h Anticoagulation for Ac DVT.On Eliquis 5 mg po q12 h daily for 3 months. Reintubated after inadvertent extubation on 12/25. Status: Acute (6) Respiratory failure with hypoxia: Continue [facility]HFONC Pulmonary on board S/p Bronchoscopy Neb Pulmicort Status: Acute (7) DVT (deep venous thrombosis): On Eliquis Monitor for bleeding. h/h in am Status: Acute (8) JAY (acute kidney injury): Renal function improving. Creatinine normalized. BUN improving. Sloan noted with partial obstruction, exchanged on 12/24. Status: Acute (9) Hyperkalemia: BMP in am Status: Acute (10) Transaminitis: Mild. Monitor. CMP in am Status: Acute Additional A&P Information Type 2 diabetes mellitus, moderate dose sliding scale, Lantus Periumbilical lump: Hernia without evidence of incarceration on ultrasound. Incidentally noted 1.7 x 1.5 x 2.8 cm ovoid hypoechoic lesion along superior margin of the left kidney, likely a splenule. Disposition: Patient will need extensive rehabilitation. Patient is not qualified for LTACH given his significant improvement. Current plan is to send him to intermediate facility. For continued rehabilitation. Attestations Medical Necessity Statement*: In hospital for management of Above-defined problems Coding Level of Care Code Acute Home Health Attendant for Chg Fwd Diagnoses Septic shock A41.9; R65.21 Bacteremia due to Staphylococcus R78.81; B95.8 Staphylococcal pneumonia J15.20 Acute respiratory distress syndrome J80 Pneumonia due to COVID-19 virus U07.1; J12.82 Respiratory failure with hypoxia J96.91 DVT (deep venous thrombosis) I82.409 JAY (acute kidney injury) N17.9 Hyperkalemia E87.5 Transaminitis R74.01
[2021-01-07 18:12] LABS: Glucose Point of Care 137 mg/dL (70-110)
[2021-01-07] MEDS: cefTRIAXone 2,000 MG in sodium chloride 0.9% (plus) 50 ML 100 MG IV (19:32)
[2021-01-07 20:08] LABS: Glucose Point of Care 170 mg/dL (70-110)
[2021-01-07] MEDS: trazodone 50 mg Tablet PO (23:40)
[2021-01-08] VITALS (30 sets, daily range): BP systolic 110–175; BP diastolic 71–99; PULSE 76–119; RESP 16–29; TEMP 36.6–36.9; O2SAT 83–96
[2021-01-08] MEDS: ipratropium-albuterol 3 mL Neb INHALATION ×5 (03:51→20:53)
[2021-01-08] MEDS: neomycin-poly-bacitracin oint 28 gm 1 APPLIC TOPICAL ×2 (08:35→17:38)
[2021-01-08] MEDS: apixaban 5 mg Tablet PO ×2 (08:35→20:23)
[2021-01-08 08:49] LABS: Glucose Point of Care 130 mg/dL (70-110)
--- NOTE | 2021-01-08 10:13 | PC.CHAP ---
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 ict support and test engineers visit [] Patient/Family/Request visit [] Outpatient visit [] Follow-up visit [] Physician referral [] Code/Alert [x] Routine visit [] Staff referral [] Actively dying [] Patient sleeping [] Family support [] [] Out of room [] Palliative care [] [x] Receiving care in room [] Pre-surgical visit [] Trauma [] Long length of stay [x] ICU visit x] Other: patient setting up in chair... Relational/Emotional Strength [] Patient feels connected with others/family/visitors/staff [] Distress [] Loneliness/isolation [] Abandonment Spirituality of Patient [] Person of Elvia [] Attends Hoahaoism of their Elvia [] Believes in Prayer [] Reads Bible or Mormon materials [] There are Spiritual issues to be addressed Merchandise Marker Interventions [x] Prayer [] Active listening [] Non-anxious presence [] Spiritual/emotional support [] Crisis/trauma care [] Spiritual counseling [] Bereavement support [] Provided bereavement packet [] Provided Bible/devotional materials [] Provided toy/stuffed animal, coloring book to patient or family member [] Provided Communion [] Anointing/[place] [] Salvation [x] Completed spiritual assessment [] Other: Impact on Illness or Injury [] Angry [] Fearful [] Anxious [] Often cries [] Exhaustion [] Unable to work [] Unable to attend congregational [] Unable to walk/stand [] Unable to read [] Unable to drive [] Unable to eat/drink [] Unable to sleep [] Unable to be with family [] Patient intubated [] Other: Summary Time spent with patient
[2021-01-08] MEDS: insulin lispro 100 unit/1 mL SUBCUT ×2 (11:30→21:01)
[2021-01-08 11:40] LABS: Glucose Point of Care 230 mg/dL (70-110)
--- NOTE | 2021-01-08 13:20 | P.PN_ITS ---
Subjective Subjective: Interval history: Patient was seen and examined this morning, continues to require 8 L oxygen through high flow, Does have desaturation with activity. Continues to be weak. Medications: Reviewed: Yes Vitals/I&O/Wt Last Vital Signs Temp 97.8 F 01/08/21 08:00 Pulse 104 H 01/08/21 12:23 Resp 27 H 01/08/21 12:23 BP 123/83 01/08/21 12:23 Pulse Ox 93 01/08/21 11:45 01/07/21 01/08/21 01/08/21 22:59 06:59 14:59 Intake Total 290 / 770 Output Total 275 / 275 Balance 290 / 770 -275 / 495 Weight last 48 hrs Weight 82.809 kg Weight 86.455 kg Physical Exam Narrative: EXAM NARRATIVE: Alert awake and oriented Const: COMMON NORMALS: patient oriented x3 HENMT: COMMON NORMALS: normocephalic and atraumatic HEAD & SCALP: normocephalic and atraumatic Resp: COMMON NORMALS: clear to auscultation bilaterally EFFORT & INSPECTION: Yes symmetric chest movement AUSCULTATION: clear to auscultation bilaterally OTHER: Minimal occasional expiratory wheezing Cardio: COMMON NORMALS: regular rate, regular rhythm, S1 normal heart sound present, S2 normal heart sound present, No gallops present (Cardio), No murmurs present (Cardio), No rub (Cardio) and Peripheral pulses 2+ throughout RATE: regular rate RHYTHM: regular rhythm HEART SOUNDS: S1 normal heart sound present and S2 normal heart sound present PERIPHERAL PULSES: Peripheral pulses 2+ throughout GI: COMMON NORMALS: Normal to inspection, nondistended, normoactive bowel sounds present, Soft to palpation, non-tender, No hepatosplenomegaly present and no masses AUSCULTATION: Yes normoactive bowel sounds PALPATION: Yes Soft to palpation and Yes No hepatosplenomegaly present RECTAL EXAM: Yes deferred Extremity: COMMON NORMALS: no clubbing, cyanosis or edema and no pedal edema Neuro: COMMON NORMALS: patient oriented x3 Urinary Catheter Management^: Sloan: Cath Placed During This Visit: yes Reason for Continuing Indwelling Catheter: Accurate Measurement of Urinary Output in Critically Ill Patients Urinary Catheter Date of Insertion: 12/22/20 Urinary Catheter Time of Insertion: 14:01 Data : 01/06/21 04:25 01/06/21 04:25 A&P Assessment and plan (1) Septic shock: Status: Acute (2) Bacteremia due to Staphylococcus: Status: Acute (3) Staphylococcal pneumonia: Status: Acute (4) Acute respiratory distress syndrome: Status: Acute (5) Pneumonia due to COVID-19 virus: COVID-19 pneumonia, possibly contribution of aspiration pneumonia with inadvertent extubation continue to reassess for other potential sources. Septic shock with persistent leukocytosis, fever, hypotension. CTA chest negative for PE Urine culture without growth so far. Sloan exchanged on 11/24. Blood Culture :MSSA Repeat Blood culture : Negative Urine culture : Lola Glabrata Sputum Culture : MSSA S/P Bronchoscopy : Patient was on imipenem.Has been switched to ceftriaxone on01/03, for MSSA [place]. 2 weeks of IV ceftriaxone antibiotic. Fluconazole Received monoclonal antibody this morning at [facility] reportedly Completed Decadron. Completed remdesivir S/P 1 Dose Actemra Hold baricitinib received 3 doses duoneb q6h, budesonide q12h Anticoagulation for Ac DVT.On Eliquis 5 mg po q12 h daily for 3 months. Reintubated after inadvertent extubation on 12/25. Status: Acute (6) Respiratory failure with hypoxia: Continue [facility]ONC Pulmonary on board S/p Bronchoscopy Neb Pulmicort Status: Acute (7) DVT (deep venous thrombosis): On Eliquis Monitor for bleeding. h/h in am Status: Acute (8) JAY (acute kidney injury): Renal function improving. Creatinine normalized. BUN improving. Sloan noted with partial obstruction, exchanged on 12/24. Status: Acute (9) Hyperkalemia: BMP in am Status: Acute (10) Transaminitis: Mild. Monitor. CMP in am Status: Acute Additional A&P Information Type 2 diabetes mellitus, moderate dose sliding scale, Lantus Periumbilical lump: Hernia without evidence of incarceration on ultrasound. Incidentally noted 1.7 x 1.5 x 2.8 cm ovoid hypoechoic lesion along superior margin of the left kidney, likely a splenule. Disposition: Patient will need extensive rehabilitation. Patient is not qualified for LTACH given his significant improvement.[facility] For continued [facility]. Attestations Medical Necessity Statement*: Patient needs to be in hospital for management of well-defined problem. Coding Level of Care Code Acute Commercial Development Manager for Chg Fwd Exam Detailed Diagnoses Septic shock A41.9; R65.21 Bacteremia due to Staphylococcus R78.81; B95.8 Staphylococcal pneumonia J15.20 Acute respiratory distress syndrome J80 Pneumonia due to COVID-19 virus U07.1; J12.82 Respiratory failure with hypoxia J96.91 DVT (deep venous thrombosis) I82.409 JAY (acute kidney injury) N17.9 Hyperkalemia E87.5 Transaminitis R74.01
[2021-01-08 16:49] LABS: Glucose Point of Care 133 mg/dL (70-110)
[2021-01-08] MEDS: cefTRIAXone 2,000 MG in sodium chloride 0.9% (plus) 50 ML 100 MG IV (20:22)
[2021-01-08 20:35] LABS: Glucose Point of Care 223 mg/dL (70-110)
[2021-01-08] MEDS: FUROsemide 10 mg/mL SDV 2mL 20 MG IVP (21:11)
[2021-01-09] VITALS (28 sets, daily range): BP systolic 117–149; BP diastolic 71–84; PULSE 62–115; RESP 17–27; TEMP 36.6–37.1; O2SAT 82–98
[2021-01-09] MEDS: ipratropium-albuterol 3 mL Neb INHALATION ×7 (01:03→23:21)
--- NOTE | 2021-01-09 05:39 | PC.NURSE ---
No acute events overnight, VSS stable. Patient on 8L NC, no signs of distress at this time. Frequent turns and oral care provided.
[2021-01-09 06:31] LABS: Basophils # 0.1 10^3/uL (0.0-0.1); Basophils % 0.8 %; Eosinophils # 0.5 10^3/uL (0.0-0.8); Eosinophils % 6.4 %; Hematocrit 39.2 % (42.0-52.0); Hemoglobin 12.9 g/dL (11.7-16.6); Lymphocytes # 0.7 10^3/uL (0.8-4.8); Lymphocytes % 9.3 %; Mean Corpuscular HGB Conc 32.9 g/dL (30.0-36.0); Mean Corpuscular Hemoglobin 31.3 pg (28.0-34.0); Mean Corpuscular Volume 95.1 fl (80-94); Mean Platelet Volume 9.7 fL (7.4-10.4); Monocytes # 0.4 10^3/uL (0.2-0.9); Neutrophils % 76.1 %; Nucleated Red Blood Cells % 0 %; Platelet Count 308 10^3/cmm (130-400); Red Blood Count 4.12 10^6/uL (4.1-5.3); Red Cell Distribution Width 15.7 % (12.1-15.1); White Blood Count 7.4 10^3/uL (4.0-10.0)
[2021-01-09 06:49] LABS: Blood Urea Nitrogen 10 mg/dL (8-23); Calcium 8.6 mg/dL (8.5-10.5); Carbon Dioxide 25 mmol/L (22-29); Chloride 102 mmol/L (98-107); Glucose 156 mg/dL (65-115); Osmolality Calculated 288 mOsm/kg (285-295); Sodium 138 mmol/L (136-145)
[2021-01-09 06:54] LABS: Anion Gap 14.3 (5-19); Potassium 3.3 mmol/L (3.5-5.1)
[2021-01-09 07:50] LABS: Glucose Point of Care 166 mg/dL (70-110)
[2021-01-09] MEDS: neomycin-poly-bacitracin oint 28 gm 1 APPLIC TOPICAL ×2 (08:28→17:52)
[2021-01-09] MEDS: apixaban 5 mg Tablet PO ×2 (08:37→21:34)
[2021-01-09] MEDS: insulin lispro 100 unit/1 mL SUBCUT ×4 (08:38→21:34)
[2021-01-09 11:52] LABS: Glucose Point of Care 160 mg/dL (70-110)
--- NOTE | 2021-01-09 14:57 | PC.NURSE ---
Pt up to chair most of the day. Report called to Rosalinda RN, Norma. Pt transferred to med surg via bed, belongings set at bedside. Nurse notified of patient's arrival. Pt noted to be A&O at time of transfer.
[2021-01-09 17:34] LABS: Glucose Point of Care 159 mg/dL (70-110)
[2021-01-09] MEDS: potassium chloride ER 20 mEq Tablet 40 MEQ PO (17:47)
[2021-01-09 18:16] LABS: Glucose Point of Care 166 mg/dL (70-110)
--- NOTE | 2021-01-09 19:23 | PM.PN ---
Subjective Subjective: Interval history: Patient was seen and examined this morning, continues to be on high flow oxygen HFONC. Good urine output with Lasix 20 mg IV one-time dose yesterday. Medications: Reviewed: Yes Vitals/I&O/Wt Last Vital Signs Temp 98.2 F 01/09/21 15:46 Pulse 90 01/09/21 16:46 Resp 20 H 01/09/21 16:46 BP 122/79 01/09/21 15:46 Pulse Ox 94 01/09/21 16:46 01/09/21 01/09/21 01/09/21 06:59 14:59 22:59 Intake Total 50 / 150 180 / 180 Output Total 1425 / 1425 450 / 450 Balance -1375 / -1275 180 / 180 -450 / -270 Weight last 48 hrs Weight 81.25 kg Weight 82.809 kg Physical Exam Narrative: EXAM NARRATIVE: Alert awake and oriented Const: COMMON NORMALS: patient oriented x3 HENMT: COMMON NORMALS: normocephalic and atraumatic HEAD & SCALP: normocephalic and atraumatic Resp: COMMON NORMALS: clear to auscultation bilaterally EFFORT & INSPECTION: Yes symmetric chest movement AUSCULTATION: clear to auscultation bilaterally OTHER: Minimal occasional expiratory wheezing Cardio: COMMON NORMALS: regular rate, regular rhythm, S1 normal heart sound present, S2 normal heart sound present, No gallops present (Cardio), No murmurs present (Cardio), No rub (Cardio) and Peripheral pulses 2+ throughout RATE: regular rate RHYTHM: regular rhythm HEART SOUNDS: S1 normal heart sound present and S2 normal heart sound present PERIPHERAL PULSES: Peripheral pulses 2+ throughout GI: COMMON NORMALS: Normal to inspection, nondistended, normoactive bowel sounds present, Soft to palpation, non-tender, No hepatosplenomegaly present and no masses AUSCULTATION: Yes normoactive bowel sounds PALPATION: Yes Soft to palpation and Yes No hepatosplenomegaly present RECTAL EXAM: Yes deferred Extremity: COMMON NORMALS: no clubbing, cyanosis or edema and no pedal edema Neuro: COMMON NORMALS: patient oriented x3 Urinary Catheter Management^: Sloan: Cath Placed During This Visit: yes Reason for Continuing Indwelling Catheter: Other Urinary Catheter Date of Insertion: 12/22/20 Urinary Catheter Time of Insertion: 14:01 Data : 01/09/21 06:20 01/09/21 06:20 A&P Assessment and plan (1) Septic shock: Status: Acute (2) Bacteremia due to Staphylococcus: Status: Acute (3) Staphylococcal pneumonia: Status: Acute (4) Acute respiratory distress syndrome: Status: Acute (5) Pneumonia due to COVID-19 virus: COVID-19 pneumonia, possibly contribution of aspiration pneumonia with inadvertent extubation continue to reassess for other potential sources. Septic shock with persistent leukocytosis, fever, hypotension. CTA chest negative for PE Urine culture without growth so far. Sloan exchanged on 11/24. Blood Culture :MSSA Repeat Blood culture : Negative Urine culture : Lola Glabrata Sputum Culture : MSSA S/P Bronchoscopy : Patient was on imipenem.Has been switched to ceftriaxone on01/03, for MSSA coverage. 2 weeks of IV ceftriaxone antibiotic. Fluconazole Received monoclonal antibody this morning at [facility] reportedly Completed Decadron. Completed remdesivir S/P 1 Dose Actemra Hold baricitinib received 3 doses duoneb q6h, budesonide q12h Anticoagulation for Ac DVT.On Eliquis 5 mg po q12 h daily for 3 months. Reintubated after inadvertent extubation on 12/25. Status: Acute (6) Respiratory failure with hypoxia: Continue [facility] Pulmonary on board S/p Bronchoscopy Neb Pulmicort Status: Acute (7) DVT (deep venous thrombosis): On Eliquis Monitor for bleeding. h/h in am Status: Acute (8) JAY (acute kidney injury): Renal function improving. Creatinine normalized. BUN improving. Sloan noted with partial obstruction, exchanged on 12/24. Status: Acute (9) Hyperkalemia: BMP in am Status: Acute (10) Transaminitis: Mild. Monitor. CMP in am Status: Acute Additional A&P Information Type 2 diabetes mellitus, moderate dose sliding scale, Lantus Periumbilical lump: Hernia without evidence of incarceration on ultrasound. Incidentally noted 1.7 x 1.5 x 2.8 cm ovoid hypoechoic lesion along superior margin of the left kidney, likely a splenule. Disposition: Patient will need extensive rehabilitation.Patient is not qualified for LTACH given his significant improvement.PEER TO PEER has been done and was denied. Current plan is to send him to intermediate if possible. For continued rehabilitation. Attestations Medical Necessity Statement*: Patient is in the hospital for management of PNA. Continued need for high flow oxygen. Coding Level of Care Code Acute Drawing Frame Tender for Chg Fwd Diagnoses Septic shock A41.9; R65.21 Bacteremia due to Staphylococcus R78.81; B95.8 Staphylococcal pneumonia J15.20 Acute respiratory distress syndrome J80 Pneumonia due to COVID-19 virus U07.1; J12.82 Respiratory failure with hypoxia J96.91 DVT (deep venous thrombosis) I82.409 JAY (acute kidney injury) N17.9 Hyperkalemia E87.5 Transaminitis R74.01
[2021-01-09] MEDS: cefTRIAXone 2,000 MG in sodium chloride 0.9% (plus) 50 ML 100 MG IV (19:55)
[2021-01-09 21:22] LABS: Glucose Point of Care 157 mg/dL (70-110)
[2021-01-10] VITALS (17 sets, daily range): BP systolic 119–132; BP diastolic 69–80; PULSE 77–98; RESP 17–20; TEMP 36.4–37.2; O2SAT 94–98
[2021-01-10] MEDS: ipratropium-albuterol 3 mL Neb INHALATION ×6 (03:07→23:31)
[2021-01-10 06:13] LABS: Basophils % 0.6 %; Eosinophils # 0.5 10^3/uL (0.0-0.8); Eosinophils % 7.7 %; Hematocrit 39.5 % (42.0-52.0); Hemoglobin 12.7 g/dL (11.7-16.6); Lymphocytes # 0.8 10^3/uL (0.8-4.8); Lymphocytes % 11.1 %; Mean Corpuscular HGB Conc 32.2 g/dL (30.0-36.0); Mean Corpuscular Hemoglobin 31.1 pg (28.0-34.0); Mean Corpuscular Volume 96.6 fl (80-94); Mean Platelet Volume 9.6 fL (7.4-10.4); Monocytes # 0.5 10^3/uL (0.2-0.9); Monocytes % 6.6 %; Neutrophils # 4.95 10^3/uL (1.8-7.7); Neutrophils % 73.1 %; Nucleated Red Blood Cells % 0 %; Platelet Count 311 10^3/cmm (130-400); Red Blood Count 4.09 10^6/uL (4.1-5.3); Red Cell Distribution Width 15.5 % (12.1-15.1); White Blood Count 6.8 10^3/uL (4.0-10.0)
[2021-01-10 06:33] LABS: Glucose Point of Care 180 mg/dL (70-110)
[2021-01-10 06:33] LABS: Anion Gap 13.5 (5-19); Blood Urea Nitrogen 9 mg/dL (8-23); Calcium 8.4 mg/dL (8.5-10.5); Carbon Dioxide 24 mmol/L (22-29); Chloride 104 mmol/L (98-107); Glucose 172 mg/dL (65-115); Osmolality Calculated 289 mOsm/kg (285-295); Potassium 3.5 mmol/L (3.5-5.1); Sodium 138 mmol/L (136-145)
[2021-01-10] MEDS: insulin lispro 100 unit/1 mL SUBCUT ×2 (09:03→13:30)
[2021-01-10] MEDS: apixaban 5 mg Tablet PO ×2 (09:04→20:10)
[2021-01-10 12:00] LABS: Glucose Point of Care 177 mg/dL (70-110)
[2021-01-10] MEDS: neomycin-poly-bacitracin oint 28 gm 1 APPLIC TOPICAL ×2 (13:33→18:14)
--- NOTE | 2021-01-10 16:54 | PM.PN ---
Subjective Subjective: Interval history: Patient was seen and examined this morning, continues to be on high flow oxygen HFONC. Patient is slowly improving , has remained A. fib, other vitals and labs have been reviewed. Medications: Reviewed: Yes Vitals/I&O/Wt Last Vital Signs Temp 97.7 F 01/10/21 16:00 Pulse 90 01/10/21 16:00 Resp 17 01/10/21 16:00 BP 132/80 01/10/21 16:00 Pulse Ox 96 01/10/21 16:00 01/10/21 01/10/21 01/10/21 06:59 14:59 22:59 Intake Total 360 / 790 240 / 240 Balance 360 / 340 240 / 240 Weight last 48 hrs Weight 81.465 kg Weight 81.25 kg Physical Exam Narrative: EXAM NARRATIVE: Alert awake and oriented Const: COMMON NORMALS: patient oriented x3 HENMT: COMMON NORMALS: normocephalic and atraumatic HEAD & SCALP: normocephalic and atraumatic Resp: COMMON NORMALS: clear to auscultation bilaterally EFFORT & INSPECTION: Yes symmetric chest movement AUSCULTATION: clear to auscultation bilaterally Cardio: COMMON NORMALS: regular rate, regular rhythm, S1 normal heart sound present, S2 normal heart sound present, No gallops present (Cardio), No murmurs present (Cardio), No rub (Cardio) and Peripheral pulses 2+ throughout RATE: regular rate RHYTHM: regular rhythm HEART SOUNDS: S1 normal heart sound present and S2 normal heart sound present PERIPHERAL PULSES: Peripheral pulses 2+ throughout GI: COMMON NORMALS: Normal to inspection, nondistended, normoactive bowel sounds present, Soft to palpation, non-tender, No hepatosplenomegaly present and no masses AUSCULTATION: Yes normoactive bowel sounds PALPATION: Yes Soft to palpation and Yes No hepatosplenomegaly present RECTAL EXAM: Yes deferred Extremity: COMMON NORMALS: no clubbing, cyanosis or edema and no pedal edema Neuro: COMMON NORMALS: patient oriented x3 Urinary Catheter Management^: Sloan: Cath Placed During This Visit: yes Reason for Continuing Indwelling Catheter: Accurate Measurement of Urinary Output in Critically Ill Patients Urinary Catheter Date of Insertion: 12/22/20 Urinary Catheter Time of Insertion: 14:01 Data : 01/10/21 05:50 11/13/21 05:50 A&P Assessment and plan (1) Septic shock: Status: Acute (2) Bacteremia due to Staphylococcus: Status: Acute (3) Staphylococcal pneumonia: Status: Acute (4) Acute respiratory distress syndrome: Status: Acute (5) Pneumonia due to COVID-19 virus: COVID-19 pneumonia, possibly contribution of aspiration pneumonia with inadvertent extubation continue to reassess for other potential sources. Septic shock with persistent leukocytosis, fever, hypotension. CTA chest negative for PE Urine culture without growth so far. Sloan exchanged on 11/24. Blood Culture :MSSA Repeat Blood culture : Negative Urine culture : Lola Glabrata Sputum Culture : MSSA S/P Bronchoscopy : Patient was on imipenem.Has been switched to ceftriaxone on01/03, for MSSA coverage. 2 weeks of IV ceftriaxone antibiotic. Fluconazole Received monoclonal antibody this morning at [facility] reportedly Completed Decadron. Completed remdesivir S/P 1 Dose Actemra Hold baricitinib received 3 doses duoneb q6h, budesonide q12h Anticoagulation for Ac DVT.On Eliquis 5 mg po q12 h daily for 3 months. Reintubated after inadvertent extubation on 12/25. Status: Acute (6) Respiratory failure with hypoxia: Continue [facility] Pulmonary on board S/p Bronchoscopy Neb Pulmicort Status: Acute (7) DVT (deep venous thrombosis): On Eliquis Monitor for bleeding. h/h in am Status: Acute (8) JAY (acute kidney injury): Renal function improving. Creatinine normalized. BUN improving. Sloan noted with partial obstruction, exchanged on 12/24. Status: Acute (9) Hyperkalemia: BMP in am Status: Acute (10) Transaminitis: Mild. Monitor. CMP in am Status: Acute Additional A&P Information Type 2 diabetes mellitus, moderate dose sliding scale, Lantus Periumbilical lump: Hernia without evidence of incarceration on ultrasound. Incidentally noted 1.7 x 1.5 x 2.8 cm ovoid hypoechoic lesion along superior margin of the left kidney, likely a splenule. Disposition: Patient will need extensive rehabilitation.Patient is not qualified for LTACH given his significant improvement.PEER TO PEER has been done and was denied. Current plan [facility] For continued rehabilitation. Attestations Medical Necessity Statement*: Patient needs to be in hospital for management of pneumonia, Coding Level of Care Code Acute Ultrasound Technologist Sonographer for Chg Fwd Exam Detailed Diagnoses Septic shock A41.9; R65.21 Bacteremia due to Staphylococcus R78.81; B95.8 Staphylococcal pneumonia J15.20 Acute respiratory distress syndrome J80 Pneumonia due to COVID-19 virus U07.1; J12.82 Respiratory failure with hypoxia J96.91 DVT (deep venous thrombosis) I82.409 JAY (acute kidney injury) N17.9 Hyperkalemia E87.5 Transaminitis R74.01
[2021-01-10 17:26] LABS: Glucose Point of Care 271 mg/dL (70-110)
[2021-01-10] MEDS: FUROsemide 40 mg Tablet PO (20:10)
[2021-01-10 20:27] LABS: Glucose Point of Care 242 mg/dL (70-110)
[2021-01-11] VITALS (15 sets, daily range): BP systolic 116–130; BP diastolic 70–83; PULSE 65–108; RESP 16–18; TEMP 36.3–36.9; O2SAT 91–98
--- NOTE | 2021-01-11 00:33 | PC.NURSE ---
i reported low temp 97.4
[2021-01-11] MEDS: ipratropium-albuterol 3 mL Neb INHALATION ×6 (03:16→23:42)
[2021-01-11 05:43] LABS: Basophils % 0.6 %; Eosinophils # 0.4 10^3/uL (0.0-0.8); Eosinophils % 5.8 %; Hematocrit 36.6 % (42.0-52.0); Hemoglobin 12.2 g/dL (11.7-16.6); Lymphocytes # 0.8 10^3/uL (0.8-4.8); Lymphocytes % 12.6 %; Mean Corpuscular HGB Conc 33.3 g/dL (30.0-36.0); Mean Corpuscular Hemoglobin 31.7 pg (28.0-34.0); Mean Corpuscular Volume 95.1 fl (80-94); Mean Platelet Volume 10.2 fL (7.4-10.4); Monocytes # 0.5 10^3/uL (0.2-0.9); Monocytes % 7.5 %; Neutrophils # 4.87 10^3/uL (1.8-7.7); Neutrophils % 72.8 %; Nucleated Red Blood Cells % 0 %; Platelet Count 298 10^3/cmm (130-400); Red Blood Count 3.85 10^6/uL (4.1-5.3); Red Cell Distribution Width 15.4 % (12.1-15.1); White Blood Count 6.7 10^3/uL (4.0-10.0)
[2021-01-11 06:14] LABS: Anion Gap 15.4 (5-19); Blood Urea Nitrogen 7 mg/dL (8-23); Calcium 8.1 mg/dL (8.5-10.5); Carbon Dioxide 25 mmol/L (22-29); Chloride 102 mmol/L (98-107); Glomerular Filtration Rate 303.8 mL/min (90-130); Glucose 148 mg/dL (65-115); Osmolality Calculated 289 mOsm/kg (285-295); Potassium 3.4 mmol/L (3.5-5.1); Sodium 139 mmol/L (136-145)
[2021-01-11 06:46] LABS: Glucose Point of Care 186 mg/dL (70-110)
--- NOTE | 2021-01-11 07:29 | PC.NURSE ---
AM NOTE PER THIS NURSE UPDATED PT FOR PLAN FOR DAY - PT STATES I'M VERY TIRED - I DONT KNOW HOW LONG I CAN KEEP DOING THIS - CONTINOUS PULSE OX IN PLACE WITH 02 AT93% AND HEART RATE AT 84
[2021-01-11] MEDS: apixaban 5 mg Tablet PO ×2 (08:17→21:22)
[2021-01-11] MEDS: neomycin-poly-bacitracin oint 28 gm 1 APPLIC TOPICAL ×2 (08:19→16:48)
--- NOTE | 2021-01-11 10:39 | PM.PN ---
Subjective Subjective: Interval history: Patient was seen and examined this morning, continues to be on high flow oxygen HFONC. Good urine output with lasix 40 mg po yesterday. working with P/T. Vitals and labs have been reviewed Medications: Reviewed: Yes Vitals/I&O/Wt Last Vital Signs Temp 98.4 F 01/11/21 07:10 Pulse 81 01/11/21 08:49 Resp 18 01/11/21 08:45 BP 116/75 01/11/21 07:10 Pulse Ox 93 01/11/21 08:45 01/10/21 01/11/21 01/11/21 22:59 06:59 14:59 Intake Total 240 / 480 100 / 580 Output Total 1550 / 1550 Balance 240 / 480 100 / 580 -1550 / -1550 Weight last 48 hrs Weight 81.465 kg Physical Exam Narrative: EXAM NARRATIVE: Alert awake and oriented Const: COMMON NORMALS: patient oriented x3 HENMT: COMMON NORMALS: normocephalic and atraumatic HEAD & SCALP: normocephalic and atraumatic Resp: COMMON NORMALS: clear to auscultation bilaterally EFFORT & INSPECTION: Yes symmetric chest movement AUSCULTATION: clear to auscultation bilaterally OTHER: Minimal occasional expiratory wheezing Cardio: COMMON NORMALS: regular rate, regular rhythm, S1 normal heart sound present, S2 normal heart sound present, No gallops present (Cardio), No murmurs present (Cardio), No rub (Cardio) and Peripheral pulses 2+ throughout RATE: regular rate RHYTHM: regular rhythm HEART SOUNDS: S1 normal heart sound present and S2 normal heart sound present PERIPHERAL PULSES: Peripheral pulses 2+ throughout GI: COMMON NORMALS: Normal to inspection, nondistended, normoactive bowel sounds present, Soft to palpation, non-tender, No hepatosplenomegaly present and no masses AUSCULTATION: Yes normoactive bowel sounds PALPATION: Yes Soft to palpation and Yes No hepatosplenomegaly present RECTAL EXAM: Yes deferred Extremity: COMMON NORMALS: no clubbing, cyanosis or edema and no pedal edema Neuro: COMMON NORMALS: patient oriented x3 Urinary Catheter Management^: Sloan: Cath Placed During This Visit: yes Reason for Continuing Indwelling Catheter: Accurate Measurement of Urinary Output in Critically Ill Patients Urinary Catheter Date of Insertion: 12/22/20 Urinary Catheter Time of Insertion: 14:01 Data : 01/11/21 04:24 01/11/21 04:24 A&P Assessment and plan (1) Septic shock: Status: Acute (2) Bacteremia due to Staphylococcus: Status: Acute (3) Staphylococcal pneumonia: Status: Acute (4) Acute respiratory distress syndrome: Status: Acute (5) Pneumonia due to COVID-19 virus: COVID-19 pneumonia, possibly contribution of aspiration pneumonia with inadvertent extubation continue to reassess for other potential sources. Septic shock with persistent leukocytosis, fever, hypotension. CTA chest negative for PE Urine culture without growth so far. Sloan exchanged on 11/24. Blood Culture :MSSA Repeat Blood culture : Negative Urine culture : Lola Glabrata Sputum Culture : MSSA S/P Bronchoscopy : Patient was on imipenem.Has been switched to ceftriaxone on01/03, for MSSA coverage. 2 weeks of IV ceftriaxone antibiotic. Fluconazole Received monoclonal antibody this morning at [facility] reportedly Completed Decadron. Completed remdesivir S/P 1 Dose Actemra Hold baricitinib received 3 doses duoneb q6h, budesonide q12h Anticoagulation for Ac DVT.On Eliquis 5 mg po q12 h daily for 3 months. Reintubated after inadvertent extubation on 12/25. Status: Acute (6) Respiratory failure with hypoxia: Continue HHFONC Pulmonary on board S/p Bronchoscopy Neb Pulmicort Status: Acute (7) DVT (deep venous thrombosis): On Eliquis Monitor for bleeding. h/h in am Status: Acute (8) JAY (acute kidney injury): Renal function improving. Creatinine normalized. BUN improving. Sloan noted with partial obstruction, exchanged on 12/24. Status: Acute (9) Hyperkalemia: BMP in am Status: Acute (10) Transaminitis: Mild. Monitor. CMP in am Status: Acute Additional A&P Information Type 2 diabetes mellitus, moderate dose sliding scale, Lantus Periumbilical lump: Hernia without evidence of incarceration on ultrasound. Incidentally noted 1.7 x 1.5 x 2.8 cm ovoid hypoechoic lesion along superior margin of the left kidney, likely a splenule. Disposition: Patient will need extensive rehabilitation.Patient is not qualified for LTACH given his significant improvement.PEER TO PEER has been done and was denied. Current plan [facility] For continued rehabilitation. Attestations Medical Necessity Statement*: Patient is to be in the hospital for management of pneumonia. 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
--- NOTE | 2021-01-11 11:41 | PC.NURSE ---
PT UP WITH PT - 02 HAS REMAINED ON 3LNC WITH SATS VARYING FROM 91-94%PER THIS NURSE UNTIL AFTER TRANSFER TO CHAIR -SATS DOWN TO 84% - O2 SLOWLY TITRATED TO 6LNC - RT NOTIFIED - AUREA RT AT SIDE - 02 AT 6L - SATS UP TO 90% - WILL CONTINUE TO MONITOR
[2021-01-11 11:42] LABS: Glucose Point of Care 197 mg/dL (70-110)
[2021-01-11] MEDS: LORazepam 2 mg Tablet PO (12:16)
--- NOTE | 2021-01-11 13:07 | PC.NURSE ---
ROUNDING PT REMAINS UP IN CHAIR - WITH OXYGEN CURRENTLY AT 92% - DR JOSE NOTIFIED PREVIOUSLY OF PTS INCREASE IN ANXIETY - NEW ORDERS REC'D
[2021-01-11 17:43] LABS: Glucose Point of Care 349 mg/dL (70-110)
[2021-01-11] MEDS: potassium chloride ER 20 mEq Tablet PO (19:33)
[2021-01-11 20:40] LABS: Glucose Point of Care 168 mg/dL (70-110)
[2021-01-12] VITALS (14 sets, daily range): BP systolic 107–123; BP diastolic 72–82; PULSE 83–111; RESP 16–22; TEMP 36.3–36.6; O2SAT 90–98
[2021-01-12] MEDS: ipratropium-albuterol 3 mL Neb INHALATION ×5 (03:19→20:09)
[2021-01-12 06:26] LABS: Basophils # 0.1 10^3/uL (0.0-0.1); Eosinophils # 0.2 10^3/uL (0.0-0.8); Eosinophils % 3.8 %; Hematocrit 40.4 % (42.0-52.0); Hemoglobin 13.2 g/dL (11.7-16.6); Lymphocytes # 0.8 10^3/uL (0.8-4.8); Lymphocytes % 13.6 %; Mean Corpuscular HGB Conc 32.7 g/dL (30.0-36.0); Mean Corpuscular Hemoglobin 30.8 pg (28.0-34.0); Mean Corpuscular Volume 94.2 fl (80-94); Mean Platelet Volume 9.8 fL (7.4-10.4); Monocytes # 0.6 10^3/uL (0.2-0.9); Monocytes % 9.5 %; Neutrophils % 71.6 %; Nucleated Red Blood Cells % 0 %; Platelet Count 356 10^3/cmm (130-400); Red Blood Count 4.29 10^6/uL (4.1-5.3); Red Cell Distribution Width 15.5 % (12.1-15.1)
[2021-01-12 06:42] LABS: Glucose Point of Care 345 mg/dL (70-110)
[2021-01-12 06:43] LABS: Blood Urea Nitrogen 8 mg/dL (8-23); Calcium 8.6 mg/dL (8.5-10.5); Carbon Dioxide 24 mmol/L (22-29); Chloride 98 mmol/L (98-107); Glucose 163 mg/dL (65-115); Osmolality Calculated 280 mOsm/kg (285-295); Sodium 134 mmol/L (136-145)
[2021-01-12 06:50] LABS: Anion Gap 15.7 (5-19); Potassium 3.7 mmol/L (3.5-5.1)
[2021-01-12] MEDS: apixaban 5 mg Tablet PO ×2 (08:46→21:59)
[2021-01-12] MEDS: neomycin-poly-bacitracin oint 28 gm 1 APPLIC TOPICAL ×2 (08:48→17:45)
[2021-01-12 11:45] LABS: Glucose Point of Care 290 mg/dL (70-110)
[2021-01-12 17:46] LABS: Glucose Point of Care 206 mg/dL (70-110)
[2021-01-12 21:30] LABS: Glucose Point of Care 259 mg/dL (70-110)
--- NOTE | 2021-01-12 22:06 | PM.PN ---
Subjective Subjective: Interval history: Patient was seen this morning, he was on 6 L, is onto room air, he tells me that he just feels weak, fatigued, tired, has a mild cough, no chest pain, Vitals/I&O/Wt Last Vital Signs Temp 97.9 F 01/12/21 20:41 Pulse 99 01/12/21 20:41 Resp 20 H 01/12/21 20:41 BP 110/75 01/12/21 20:41 Pulse Ox 93 01/12/21 20:41 01/12/21 01/12/21 01/12/21 06:59 14:59 22:59 Intake Total 340 / 900 240 / 240 120 / 360 Output Total 860 / 3210 1000 / 1000 Balance -520 / -2310 -760 / -760 120 / -640 Physical Exam Const: COMMON NORMALS: no acute distress and patient oriented x3 GENERAL APPEARANCE: frail appearing Resp: COMMON NORMALS: normal respiratory effort, No retractions, No use of accessory muscles and clear to auscultation bilaterally AUSCULTATION: clear to auscultation bilaterally Cardio: COMMON NORMALS: regular rate, regular rhythm, S1 normal heart sound present and S2 normal heart sound present RATE: regular rate RHYTHM: regular rhythm HEART SOUNDS: S1 normal heart sound present and S2 normal heart sound present GI: COMMON NORMALS: Normal to inspection, nondistended, normoactive bowel sounds present, Soft to palpation and non-tender PALPATION: Yes Soft to palpation Extremity: COMMON NORMALS: no pedal edema Neuro: COMMON NORMALS: patient oriented x3 Psych: COMMON NORMALS: mental status grossly normal Urinary Catheter Management^: Slaon: Cath Placed During This Visit: yes Reason for Continuing Indwelling Catheter: Not indwelling catheter Urinary Catheter Date of Insertion: 12/22/20 Urinary Catheter Time of Insertion: 14:01 Data : 01/12/21 05:39 01/12/21 05:39 A&P Assessment and plan (1) Septic shock: Status: Acute (2) Bacteremia due to Staphylococcus: Status: Acute (3) Staphylococcal pneumonia: Status: Acute (4) Acute respiratory distress syndrome: Status: Acute (5) Pneumonia due to COVID-19 virus: COVID-19 pneumonia, possibly contribution of aspiration pneumonia with inadvertent extubation continue to reassess for other potential sources. Septic shock with persistent leukocytosis, fever, hypotension. CTA chest negative for PE Urine culture without growth so far. Sloan exchanged on 11/24. Blood Culture :MSSA Repeat Blood culture : Negative Urine culture : Lola Glabrata Sputum Culture : MSSA S/P Bronchoscopy : Patient was on imipenem, Has been switched to ceftriaxone on01/03, for MSSA coverage. 2 weeks of IV ceftriaxone antibiotic completed Fluconazole completed Received monoclonal antibody at [facility] reportedly Completed Decadron. Completed remdesivir S/P 1 Dose Actemra Received 3 doses of baricitinib Anticoagulation for Ac DVT On Eliquis 5 mg po q12 h daily for 3 months. Reintubated after inadvertent extubation on 12/25. Currently on room air Continues to weak, fatigue, malaise, poor appetite Plan: -Monitor respiratory status closely -Monitor for oxygen requirements -PT OT -Possible discharge to home versus [facility] versus long-term care -On Eliquis for DVT prophylaxis -Full code Status: Acute (6) Respiratory failure with hypoxia: Status: Acute (7) DVT (deep venous thrombosis): On Eliquis Monitor for bleeding. Status: Acute (8) JAY (acute kidney injury): Renal function improving. Creatinine normalized. BUN improving. Sloan noted with partial obstruction, exchanged on 12/24. Status: Acute (9) Hyperkalemia: Status: Acute (10) Transaminitis: Mild. Monitor. CMP in am Status: Acute Additional A&P Information Type 2 diabetes mellitus, moderate dose sliding scale, Lantus Periumbilical lump: Hernia without evidence of incarceration on ultrasound. Incidentally noted 1.7 x 1.5 x 2.8 cm ovoid hypoechoic lesion along superior margin of the left kidney, likely a splenule. 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
[2021-01-13] VITALS (11 sets, daily range): BP systolic 91–120; BP diastolic 47–79; PULSE 76–120; RESP 16–22; TEMP 36.3–37; O2SAT 88–95
[2021-01-13] MEDS: ipratropium-albuterol 3 mL Neb INHALATION ×4 (00:50→11:08)
[2021-01-13 06:49] LABS: Glucose Point of Care 177 mg/dL (70-110)
--- NOTE | 2021-01-13 07:00 | XR_ITS ---
WS: [id number] Exam: XR chest 1V portable [id number] Date/Time of Exam: 01/13/2021 6:29 AM Reason For Exam: sob Comparison 01/01/2021. Residual infiltrates are seen in the bilateral lateral lung zones as well as the left basal region. T here is right basal atelectasis. No pleural effusion or pneumothorax. Heart size is normal for techni que. The mediastinum is not widened. XR/XR chest 1V portable [id number] IMPRESSION: 1. Bilateral pulmonary infiltrates showing minimal improvement since prior stud y.
[2021-01-13] MEDS: apixaban 5 mg Tablet PO (08:46)
[2021-01-13] MEDS: neomycin-poly-bacitracin oint 28 gm 1 APPLIC TOPICAL (08:47)
[2021-01-13 10:16] LABS: Basophils # 0.1 10^3/uL (0.0-0.1); Basophils % 1.1 %; Eosinophils # 0.2 10^3/uL (0.0-0.8); Eosinophils % 3.4 %; Hemoglobin 14.3 g/dL (11.7-16.6); Lymphocytes # 0.9 10^3/uL (0.8-4.8); Lymphocytes % 13.4 %; Mean Corpuscular HGB Conc 32.5 g/dL (30.0-36.0); Mean Corpuscular Hemoglobin 30.7 pg (28.0-34.0); Mean Corpuscular Volume 94.4 fl (80-94); Mean Platelet Volume 9.7 fL (7.4-10.4); Monocytes # 0.6 10^3/uL (0.2-0.9); Neutrophils # 4.57 10^3/uL (1.8-7.7); Neutrophils % 71.2 %; Nucleated Red Blood Cells % 0 %; Platelet Count 375 10^3/cmm (130-400); Red Blood Count 4.66 10^6/uL (4.1-5.3); Red Cell Distribution Width 15.6 % (12.1-15.1); White Blood Count 6.4 10^3/uL (4.0-10.0)
[2021-01-13 10:34] LABS: Alanine Aminotransferase 33 U/L (0-41); Albumin Level 3.3 g/dL (3.5-5.2); Alkaline Phosphatase 76 IU/L (40-130); Aspartate Amino Transferase 18 U/L (0-40); Blood Urea Nitrogen 9 mg/dL (8-23); C Reactive Protein 4.5 mg/L (0.0-4.9); Calcium 8.9 mg/dL (8.5-10.5); Carbon Dioxide 25 mmol/L (22-29); Chloride 102 mmol/L (98-107); Globulin 3.6 g/dL (1.3-4.6); Glucose 196 mg/dL (65-115); Osmolality Calculated 290 mOsm/kg (285-295); Phosphorus 3.3 mg/dL (2.5-4.5); Sodium 138 mmol/L (136-145); Total Bilirubin 0.8 mg/dL (0.15-1.2); Total Protein 6.9 g/dL (6.6-8.7)
[2021-01-13 11:02] LABS: NT Pro B Type Natriuretic Pept 54 pg/mL (0-125)
[2021-01-13 12:17] LABS: Glucose Point of Care 339 mg/dL (70-110)
--- NOTE | 2021-01-13 12:51 | PM.DCS ---
Discharge Providers Date of Admission: 12/17/20 02:33 Date of Discharge: January 13, 2021 Attending Provider at Admission: Kateryna Farrar MD Attending Provider at Discharge: Rodney Pinzon MD Diagnoses at Discharge Discharge Diagnosis (1) Septic shock: Status: Acute (2) Bacteremia due to Staphylococcus: Status: Acute (3) Staphylococcal pneumonia: Status: Acute (4) Acute respiratory distress syndrome: Status: Acute (5) Pneumonia due to COVID-19 virus: Status: Acute (6) Respiratory failure with hypoxia: Status: Acute (7) DVT (deep venous thrombosis): Status: Acute (8) JAY (acute kidney injury): Status: Acute (9) Hyperkalemia: Status: Acute (10) Transaminitis: Status: Acute Reason for Visit Reason for Visit: COVID +/ SOB Hospital Course Hospital Course This is a 60-year-old male with a past medical history of type 2 diabetes mellitus who presents to [facility] due to fevers, cough, shortness of breath Patient was admitted to [facility] for acute hypoxic respiratory failure secondary to COVID-19 pneumonia, acute respiratory distress syndrome, complicated by staphylococcal pneumonia with MSSA bacteremia. Patient was managed in the ICU, received broad-spectrum antibiotic therapy, remdesivir, steroid therapy, received 3 doses of her CHF, 1 dose of Actemra, was found to have a left lower extremity DVT placed on anticoagulation, underwent a bronchoscopy, was intubated 12/22/2020, inadvertently dislodged ET tube requiring intubation 12/25/2020, extubated 01/02/2021, moved out of ICU, moved to general medical floors, clinically did well. Patient requires anywhere from room air to 3 L on exertion. He has completed 14 days of inpatient IV antibiotics for his MSSA bacteremia. Patient clinically improved, however continues to have deconditioning, protein calorie malnutrition, muscle wasting. Given his increased needs, patient will be discharged to [facility] for 3 to 6 months given his left lower extremity DVT, Advair, DuoNeb, insulin sliding scale for his type 2 diabetes mellitus, continued PT OT. Physical Exam Const: COMMON NORMALS: no acute distress and patient oriented x3 Resp: COMMON NORMALS: normal respiratory effort, No retractions, No use of accessory muscles and clear to auscultation bilaterally AUSCULTATION: clear to auscultation bilaterally Cardio: COMMON NORMALS: regular rate, regular rhythm, S1 normal heart sound present and S2 normal heart sound present RATE: regular rate RHYTHM: regular rhythm HEART SOUNDS: S1 normal heart sound present and S2 normal heart sound present GI: COMMON NORMALS: Normal to inspection, nondistended, normoactive bowel sounds present, Soft to palpation and non-tender PALPATION: Yes Soft to palpation Extremity: COMMON NORMALS: no pedal edema Neuro: COMMON NORMALS: patient oriented x3 Psych: COMMON NORMALS: mental status grossly normal Skin: NARRATIVE SKIN EXAM: Superficial ulcer, right face, measuring 4 x 4 cm regular borders, Urinary Catheter Management^: Sloan: Cath Placed During This Visit: yes Reason for Continuing Indwelling Catheter: Not indwelling catheter Urinary Catheter Date of Insertion: 12/22/20 Urinary Catheter Time of Insertion: 14:01 Discharge Data Data Completed and Pending: Completed Studies During Hospitalization Category Date Time Status CT angio chest PE protcl [id number] Rout ine Cat Scan 12/29/20 09:[address] angio chest PE protcl [id number] Urge nt Cat Scan 12/16/20 23:50 Completed CXRP [XR chest 1V portable [id number]] S tat Exams 12/22/20 13:43 Completed CXRP [XR chest 1V portable 08250] S tat Exams 12/25/20 10:49 Completed XR acute abdomen series 90739 Routi ne Exams 12/28/20 08:23 Completed XR chest 1V 88881 Routine Exams 12/26/20 09:14 Completed XR chest 1V efraín ble 65940 NOW Exams 01/01/21 08:07 Completed XR chest 1V efraín ble 54224 Q48H Exams 12/18/20 05:37 Completed XR chest 1V efraín ble 29950 Routine Exams 12/20/20 07:00 Completed XR chest 1V efraín ble 37858 Routine Exams 12/21/20 07:00 Completed XR chest 1V efraín ble 83500 Routine Exams 12/22/20 03:29 Completed XR chest 1V efraín ble 22029 Routine Exams 12/23/20 06:00 Completed XR chest 1V efraín ble 57987 Routine Exams 12/25/20 06:00 Completed XR chest 1V efraín ble 46878 Routine Exams 12/28/20 06:00 Completed XR chest 1V efraín ble 20896 Routine Exams 12/29/20 06:00 Completed XR chest 1V efraín ble 70856 Routine Exams 01/13/21 07:00 Completed XR chest 1V efraín ble 60485 Stat Exams 12/16/20 22:31 Completed XR chest 1V efraín ble 33306 Stat Exams 12/30/20 16:10 Completed XR chest 1V efraín ble 07195 Stat Exams 12/31/20 13:55 [place] [id number] Routin e Ultrasound 12/23/20 09:29 [place] [address] Routin e Ultrasound 01/01/21 08:39 Completed CV. echo complete * [id number] Routine Ultrasound 12/18/20 08:05 Completed CV. echo lmt w co tiffany 84486/25 Routi ne Ultrasound 01/02/21 08:30 Completed US renal BI* 7677 0 Routine Ultrasound 12/27/20 08:27 Completed US soft tissue/ex tremity 01895 Rout ine Ultrasound 12/26/20 08:58 Completed Pending at discharge Category Date Time Status C Reactive Protei n AM LABS Lab 01/14/21 04:00 Ordered C Reactive Protei n AM LABS Lab 01/15/21 04:00 Ordered Complete Blood Co unt w/Auto AM LABS Lab 01/14/21 04:00 Ordered Complete Blood Co unt w/Auto AM LABS Lab 01/15/21 04:00 Ordered Comprehensive Met abolic Panel AM LA BS Lab 01/14/21 04:00 Ordered Comprehensive Met abolic Panel AM LA BS Lab 01/15/21 04:00 Ordered Magnesium AM LABS Lab 01/14/21 04:00 Ordered Magnesium AM LABS Lab 01/15/21 04:00 Ordered NT Pro B Type Alina riuretic Pept QAM Lab 01/14/21 06:00 Ordered NT Pro B Type Alina riuretic Pept QAM Lab 01/15/21 06:00 Ordered Phosphorus AM LAB S Lab 01/14/21 04:00 Ordered Phosphorus AM LAB S Lab 01/15/21 04:00 Ordered Procalcitonin AM LABS Lab 01/14/21 04:00 Ordered Procalcitonin AM LABS Lab 01/15/21 04:00 Ordered Labs from last 24 hours 01/13/21 01/13/21 01/13/21 12:09 09:50 09:50 WBC RBC Hgb Hct MCV MCH MCHC RDW Plt Count MPV Neut % (Auto) Lymph % (Auto) Knott % (Auto) Eos % (Auto) Baso % (Auto) Neut # (Auto) Lymph # (Auto) Knott # (Auto) Eos # (Auto) Baso # (Auto) Nucleated RBC % (a uto) Nucleated RBCs # Sodium 138 Potassium 4.0 Chloride 102 Carbon Dioxide 25 Anion Gap 15.0 BUN 9 Creatinine 0.4 L GFR Calculation 218.0 H Glucose 196 H POC Glucose 339 H Calculated Osmolal ity 290 Calcium 8.9 Phosphorus 3.3 Magnesium 2.0 Total Bilirubin 0.8 AST 18 ALT 33 Alkaline Phosphata se 76 C-Reactive Protein 4.5 NT-Pro-B Natriuret Pep 54 Total Protein 6.9 Albumin 3.3 L Globulin 3.6 Procalcitonin 0.10 01/13/21 01/13/21 01/12/21 09:50 06:41 21:24 WBC 6.4 RBC 4.66 Hgb 14.3 Hct 44.0 MCV 94.4 H MCH 30.7 MCHC 32.5 RDW 15.6 H Plt Count 375 MPV 9.7 Neut % (Auto) 71.2 Lymph % (Auto) 13.4 Knott % (Auto) 10.0 Eos % (Auto) 3.4 Baso % (Auto) 1.1 Neut # (Auto) 4.57 Lymph # (Auto) 0.9 Knott # (Auto) 0.6 Eos # (Auto) 0.2 Baso # (Auto) 0.1 Nucleated RBC % (a uto) 0 Nucleated RBCs # 0.0 Sodium Potassium Chloride Carbon Dioxide Anion Gap BUN Creatinine GFR Calculation Glucose POC Glucose 177 H 259 H Calculated Osmolal ity Calcium Phosphorus Magnesium Total Bilirubin AST ALT Alkaline Phosphata se C-Reactive Protein NT-Pro-B Natriuret Pep Total Protein Albumin Globulin Procalcitonin 01/12/21 17:21 WBC RBC Hgb Hct MCV MCH MCHC RDW Plt Count MPV Neut % (Auto) Lymph % (Auto) Knott % (Auto) Eos % (Auto) Baso % (Auto) Neut # (Auto) Lymph # (Auto) Knott # (Auto) Eos # (Auto) Baso # (Auto) Nucleated RBC % (a uto) Nucleated RBCs # Sodium Potassium Chloride Carbon Dioxide Anion Gap BUN Creatinine GFR Calculation Glucose POC Glucose 206 H Calculated Osmolal ity Calcium Phosphorus Magnesium Total Bilirubin AST ALT Alkaline Phosphata se C-Reactive Protein NT-Pro-B Natriuret Pep Total Protein Albumin Globulin Procalcitonin Vitals: Last Vital Signs Temp 97.5 F L 01/13/21 12:00 Pulse 120 H 01/13/21 12:00 Resp 20 H 01/13/21 12:00 BP 100/69 01/13/21 12:00 Pulse Ox 90 01/13/21 12:00 Discharge Plan Discharge Patient Disposition: Home Condition: Stable Prescriptions: New Eliquis 5 mg Tablet 5 mg PO BID@0900,2100 30 Days Qty: 60 RF: 0 Isopto Tears 0.5 % Drops 1 drp eye-both Q4H PRN (Reason: Dry Eye(S)) Qty: 15 RF: 0 ipratropium-albuterol 0.5 mg-3 mg(2.5 mg base)/3 mL Solution For Nebulization 3 ml inhalation Q4H.RESPIRATORY PRN (Reason: shortness of breath or wheezing) Qty: 90 RF: 0 Triple Antibiotic 3.5mg-400 unit- 5,000 unit/gram Ointment 1 applic topical BID Qty: 28 RF: 0 trazodone 50 mg Tablet 50 mg PO BEDTIME PRN (Reason: Insomnia) 30 Days Qty: 30 RF: 0 Advair Diskus 100-50 mcg/dose blister with device 1 inh inhalation DAILY Qty: 60 RF: 0 Novolog Flexpen U-100 Insulin 100 unit/mL (3 mL) insulin pen See Rx Instructions .ROUTE .COMPLEX Qty: 15 RF: 0 Continued multivitamin Tablet 1 tab PO DAILY RF: 0 metformin 500 mg tablet 1,000 mg PO BID RF: 0 atorvastatin 20 mg tablet 20 mg PO QAM RF: 0 amitriptyline 50 mg tablet 50 mg PO BEDTIME RF: 0 acetaminophen 500 mg Tablet 1,000 mg PO Q4H PRN (Reason: Pain) RF: 0 Discontinued ibuprofen 200 mg Tablet 400 mg PO Q4H PRN (Reason: Pain) RF: 0 Onglyza 5 mg tablet 5 mg PO BEDTIME RF: 0 Discharge Orders: Discharge Order (Routine); Ordered 01/13/21 Ordered By: Rodney Pinzon Discharge Diet: Cardiac and Diabetic Discharge Activity: Resume usual activity Patient Instructions: Apixaban (By mouth), Hypoxia (GEN), Opioid Safety Activity Restrictions/Additional Instructions: -Please follow-up with primary care provider as outpatient -Continue to describe flutter valve -DuoNebs Advair -Insulin sliding scale provided for type 2 diabetes mellitus -Eliquis for DVT Fingerstick Blood Glucose Insulin Units 141-180 mg/dl 2 unit/SQ 181-220 mg/dl 4 units/SQ 221-260 mg/dl 6 units/SQ 261-300 mg/dl 8 units/SQ 301-350 mg/dl 10 units/SQ 351-400 mg/dl 12 units/SQ greater than 400 mg/dl 14 units/SQ Discharge Attestations Time Spent in Discharge Care*: less than 30 min Quality Metrics Clinical Quality Measures During this hospital stay, did patient experience: VTE Contraindication to Overlap Therapy: Overlap treatment not indicated VTE Discharge Education: Education about anticoagulant therapy/Care Notes given and None Coding Level of Care Code Acute Chg FW DC note Diagnoses Septic shock A41.9; R65.21 Bacteremia due to Staphylococcus R78.81; B95.8 Staphylococcal pneumonia J15.20 Acute respiratory distress syndrome J80 Pneumonia due to COVID-19 virus U07.1; J12.82 Respiratory failure with hypoxia J96.91 DVT (deep venous thrombosis) I82.409 JAY (acute kidney injury) N17.9 Hyperkalemia E87.5 Transaminitis R74.01
--- NOTE | 2021-01-13 13:53 | PC.NURSE ---
Called and gave report to Suzanne Villafana to [facility]ias.
--- NOTE | 2021-01-13 13:54 | PC.OT ---
OT TREATMENT HELD DUE TO PATIENT SCHEDULED DISCHARGE
== END 2021-01-13 15:07 | disposition swing bed (61) | DRG 207 ==
LOC: ER 12-17 03:03 → ER IP 12-17 03:13 → ICU 12-17 05:11 → MEDSURG 01-09 14:26
PROVIDERS: Hospitalist; Internal Medicine; Internal Medicine Critical Care Medicine; Student in an Organized Health Care Education/Training Program; Admitting Provider Student in an Organized Health Care Education/Training Program; Emergency Provider Emergency Medicine; Visit Provider Family Medicine
PROC: 0BJ08ZZ Inspection of Tracheobronchial Tree, Via Natural or Artificial Opening Endoscopic (ICD-10-PCS; CPT 31622; principal; 2020-12-31 13:00)
DX: U07.1 COVID-19 (principal); J12.82 Pneumonia due to coronavirus disease 2019; J80 Acute respiratory distress syndrome; A41.9 Sepsis, unspecified organism; R65.21 Severe sepsis with septic shock; J15.211 Pneumonia due to Methicillin susceptible Staphylococcus aureus; I82.432 Acute embolism and thrombosis of left popliteal vein; N17.9 Acute kidney failure, unspecified; F05 Delirium due to known physiological condition; E11.9 Type 2 diabetes mellitus without complications; K42.9 Umbilical hernia without obstruction or gangrene; E87.5 Hyperkalemia; I95.9 Hypotension, unspecified
CPT/HCPCS: 31622; 31624; 36415; 36416; 36569; 36592; 36600; 51702; 71045; 71275; 74022; 76770; 76882; 80048; 80051; 80053; 80061; 80202; 81001; 82330; 82550; 82728; 82803; 82805; 82962; 83036; 83540; 83550; 83605; 83615; 83690; 83721; 83735; 83880; 84100; 84132; 84145; 84443; 84478; 85007; 85025; 85378; 86140; 86403; 87040; 87070; 87075; 87077; 87086; 87106; 87186; 87205; 87426; 87641; 92526; 92610; 93005; 93306; 93308; 93325; 93970; 93971; 94002; 94003; 94640; 94664; 94799; 96365; 96366; 96367; 96372; 96375; 97110; 97161; 97166; 97530; 97535; 99291; 99292; C1751; J0330; J0692; J0696; J0743; J1100; J1650; J1815 ×2; J1940; J2250; J2270; J2704; J3010; J3262; J3370; J3480; J3490; J7050; J7626; Q9967

== ENCOUNTER → 2022-01-12 09:40 | Outpatient (BNVA) | payer OTHER, SELFPAY | PROVIDERS: Visit Provider Nurse Practitioner | DX: R50.9 Fever, unspecified (principal) | CPT/HCPCS: 87400; 87426 ==

== ENCOUNTER → 2022-01-13 10:44 | Outpatient (BNVA) | payer OTHER, SELFPAY | PROVIDERS: PCP Nurse Practitioner; Visit Provider Nurse Practitioner | DX: R69 Illness, unspecified (principal); J02.8 Acute pharyngitis due to other specified organisms; B96.89 Other specified bacterial agents as the cause of diseases classified elsewhere | CPT/HCPCS: 87426 ==

== ENCOUNTER → 2022-04-12 10:22 | Outpatient (BNVA) | payer OTHER, SELFPAY | PROVIDERS: PCP Nurse Practitioner; Visit Provider Nurse Practitioner | DX: R69 Illness, unspecified (principal) | CPT/HCPCS: 87400 ==

== ENCOUNTER → 2022-04-27 09:37 | Outpatient (BNVA) | payer OTHER, SELFPAY | PROVIDERS: PCP Nurse Practitioner; Visit Provider Nurse Practitioner | DX: E11.9 Type 2 diabetes mellitus without complications (principal); I10 Essential (primary) hypertension | CPT/HCPCS: 80053; 83036 ==

== ENCOUNTER → 2022-09-10 08:24 | Outpatient (BNVA) | payer OTHER, SELFPAY | PROVIDERS: PCP Nurse Practitioner; Visit Provider Nurse Practitioner | DX: E11.9 Type 2 diabetes mellitus without complications (principal) | CPT/HCPCS: 83036 ==